=== PATIENT | male | born 1970 | race Caucasian/White ===

== ENCOUNTER 2017-11-16 12:29 | Emergency (ER) | payer OTHER ==
[2017-11-16 13:51] LABS: Barbiturates NEGATIVE (NEGATIVE); Benzodiazepines NEGATIVE (NEGATIVE); Cocaine NEGATIVE (NEGATIVE); METHAMPHETAM NEGATIVE (NEGATIVE); Opiates NEGATIVE (NEGATIVE); Phencyclidine NEGATIVE (NEGATIVE); THC Cannibis NEGATIVE (NEGATIVE)
[2017-11-16 14:03] LABS: Absolute Lymphocytes (CBC) 3.8 K/uL (0.7-4.9); Absolute Monocytes 0.8 K/uL (0.1-1.3); Absolute Neutrophil 5.6 K/uL (1.8-8.0); Basophils % 2.9 % (0-1.3); Eosinophils % 2.1 % (0-4.4); Hematocrit 44.5 % (39.6-49.0); Lymphocytes % 35.5 % (15.3-44.8); MCH 28.8 pg (27.0-35.0); MCV 87.6 fL (80-100); MPV 9.2 fL (7.6-11.3); Monocytes % 7.4 % (3.3-12.3); RBC Red Blood Cell Count 5.08 M/uL (4.33-5.43)
[2017-11-16 14:06] LABS: Protime INR 0.86
--- NOTE | 2017-11-16 14:09 | RAD REPORT ---
EXAM DESCRIPTION: RAD - Chest Single View - 11/16/2017 2:00 pm CLINICAL HISTORY: Chest pain. COMPARISON: 11/26/2016, 10/25/2016 FINDINGS: Portable technique limits examination quality. The lungs are grossly clear. The heart is normal in size. No displaced fractures. IMPRESSION: No acute intrathoracic process suspected.
[2017-11-16 14:10] LABS: Bicarbonate 24 mEq/L (21-31); Glucose Level 290 mg/dL (65-120); Potassium 4.3 mEq/L (3.6-5.0); Sodium Level 134 mEq/L (135-145)
[2017-11-16 14:16] LABS: ALT/SGPT 13 IU/L (10-60); AST/SGOT 16 IU/L (10-42); Albumin 3.9 g/dL (3.2-5.5); Alkaline Phosphatase 102 IU/L (42-121); BUN Blood Urea Nitrogen 14 mg/dL (6-20); Bilirubin Direct < 0.1 mg/dL (0-0.2); Bilirubin Total 0.2 mg/dL (0.3-1.2); Creatine Phosphokinase 60 IU/L (22-269); Protein, Total 7.3 g/dL (6.0-8.3)
[2017-11-16 14:19] LABS: CKMB Creatine Kinase MB 1.6 ng/ml (0.3-4.0)
[2017-11-16 14:31] LABS: Urine Blood NEGATIVE (NEG); Urine Glucose 2+ (NEG); Urine Protein NEGATIVE (NEG); Urine Specific Gravity 1.015 (1.005-1.030)
--- NOTE | 2017-11-16 14:38 | EKG ---
Test Date: 2017-11-16 Test Time: 12:55:13 Lace Mender: EDGARD MEASUREMENT RESULTS: Intervals: Rate: 102 VT: 146 QRSD: 82 QT: 326 QTc: 424 Exline: P: 67 VT: 146 QRS: 50 T: 43 INTERPRETIVE STATEMENTS: Sinus tachycardia Otherwise normal ECG Compared to ECG 11/26/2016 05:23:17 Sinus rhythm no longer present Myocardial infarct finding no longer present Electronically Signed On 11-16-17 14:37:02 CDT by Allan Herrera
[2017-11-16 14:40] LABS: Magnesium 1.4 mg/dL (1.8-2.5)
--- NOTE | 2017-11-16 15:16 | ER ---
Nurse's Notes [facility] Name: Cedrick Rodriguez Age: 47 yrs Sex: Male : 1970 Arrival Date: 11/16/2017 Time: 12:32 Bed 24 Private MD: None, None Diagnosis: Presentation: 11/16 12:33 Presenting complaint: Patient states: left arm and shoulder pain, fingertip numbness sv started about 30 minutes ago. left calf/thigh pain stated about an hour ago. Pt was watching tv with it started. Transition of care: patient was not received from another setting of care. Onset of symptoms was November 16, 2017. Care prior to arrival: None. 12:33 Method Of Arrival: Ambulatory sv 12:33 Acuity: VICENTE 3 sv 12:56 Risk Assessment: Do you want to hurt yourself or someone else? Patient reports no ed1 desire to harm self or others. 12:56 Initial Sepsis Screen: Does the patient meet any 2 criteria? No. Patient's initial ed1 sepsis screen is negative. Does the patient have a suspected source of infection? No. Patient's initial sepsis screen is negative. Triage Assessment: 12:33 General: Appears in no apparent distress. Behavior is calm, cooperative, appropriate sv for age. Pain: Complains of pain in left arm and left leg Pain currently is 8 out of 10 on a pain scale. Pain began 1 hour ago. EENT: No signs and/or symptoms were reported regarding the EENT system. Neuro: Level of Consciousness is awake, alert, obeys commands, Oriented to person, place, time, situation, City Maintenance Manager are equal bilaterally Moves all extremities. Full function Gait is steady, Speech is normal, Facial symmetry appears normal, Facial symmetry: tongue is midline, Reports numbness in left fingertips since 30 minutes ago that started after he started having left arm pain. Respiratory: Respiratory effort is even, unlabored, Respiratory pattern is regular, symmetrical. Derm: Skin is normal. Historical: - Allergies: 12:37 No Known Allergies; sv - PMHx: 12:37 Diabetes - NIDDM; Enlarge liver; Hypertension; Hypothyroidism; kidney issues; sv Myocardial infarction; - PSHx: 12:37 splenectomy; Cholecystectomy; Hernia repair; sv - Immunization history:: Adult Immunizations up to date. - Social history:: Smoking status: Patient uses tobacco products, smokes one pack cigarettes per day. - Ebola Screening: : No symptoms or risks identified at this time. Screenin:56 Abuse screen: Denies threats or abuse. Denies injuries from another. Nutritional ed1 screening: No deficits noted. Tuberculosis screening: No symptoms or risk factors identified. Fall Risk None identified. Assessment: 12:56 General: Appears in no apparent distress. Behavior is calm, cooperative. Pain: ed1 Complains of pain in left leg and left arm Pain does not radiate. Pain currently is 8 out of 10 on a pain scale. Pain began suddenly, 30 min ago. Is continuous, Also complains of reports tingling in left fingertips. Neuro: Level of Consciousness is awake, alert, obeys commands, Oriented to person, place, time, situation, City Maintenance Manager are equal bilaterally Moves all extremities. Full function Gait is steady, Speech is normal, Facial symmetry appears normal, Pupils are PERRLA, Tingling in left hand Denies weakness blurred vision dizziness, headache. Cardiovascular: Denies chest pain, Heart tones S1 S2 present Capillary refill < 3 seconds in bilateral fingers Clubbing of nail beds is absent JVD is absent Patient's skin is warm and dry. Respiratory: Airway is patent Trachea midline Respiratory effort is even, unlabored, Respiratory pattern is regular, symmetrical, Breath sounds are clear bilaterally. Denies cough, shortness of breath. GI: Abdomen is non-distended, Bowel sounds present X 4 quads. Abd is soft and non tender X 4 quads. Patient currently denies diarrhea, nausea, vomiting. : No signs and/or symptoms were reported regarding the genitourinary system. EENT: No signs and/or symptoms were reported regarding the EENT system. Derm: Skin is intact, is healthy with good turgor, Skin is dry, Skin is normal, Skin temperature is warm. Musculoskeletal: Circulation, motion, and sensation intact. Capillary refill < 3 seconds, in bilateral fingers. Range of motion: intact in all extremities, Swelling absent Reports pain in left leg and left arm Pain is 8 out of 10 on a pain scale. 13:15 General: The previous assessment is accurate, call light remains within reach. . ss 14:35 Reassessment: Patient appears in no apparent distress at this time. No changes from ed1 previously documented assessment. Patient and/or family updated on plan of care and expected duration. Pain level reassessed. Patient is alert, oriented x 3, equal unlabored respirations, skin warm/dry/pink. Patient states symptoms have not improved. 14:40 Reassessment: Received a call from lab. Mag level 1.4. Provider notified. kr2 Vital Signs: 12:37 BP 116 / 72; Pulse 103; Resp 18; Temp 98.0; Pulse Ox 96% ; Weight 81.65 kg; Height 5 sv ft. 9 in. (175.26 cm); Pain 8/10; 14:35 BP 113 / 72; Pulse 83; Resp 17; Pulse Ox 96% on R/A; Pain 8/10; ed1 12:37 Body Mass Index 26.58 (81.65 kg, 175.26 cm) sv ED Course: 12:32 Patient arrived in ED. sb2 12:33 None, None is Private Physician. sb2 12:35 Arm band placed on right wrist. Patient placed in an exam room, on a stretcher. sv 12:37 Triage completed. sv 12:43 Koby Levine, KRYSTEN is PHCP. pm1 12:43 Jg Pagan MD is Attending Physician. pm1 12:48 Catrachita Arboleda LVN is Primary Nurse. ed1 12:52 Glucose, Ancillary Testing Sent. ed1 12:56 Awaiting ED provider evaluation. ed1 12:56 Patient has correct armband on for positive identification. Placed in gown. Bed in low ed1 position. Call light in reach. Side rails up X 1. monitoring engineer on. Pulse ox on. NIBP on. 13:46 Inserted saline lock: 20 gauge in right forearm, using aseptic technique. ed1 13:56 X-ray completed. Portable x-ray completed in exam room. Patient tolerated procedure jb2 well. 14:00 XRAY Chest (1 view) In Process Unspecified. EDMS 15:14 IV discontinued, intact, bleeding controlled, No redness/swelling at site. Pressure ed1 dressing applied. 15:15 No provider procedures requiring assistance completed. ed1 Administered Medications: No medications were administered Point of Care Testing: Blood Glucose: 12:48 Blood Glucose: 300 mg/dL; ed1 Ranges: Outcome: 15:14 AMA AMA form signed ed1 15:14 Condition: stable 15:14 Discharge instructions given to patient, Instructed on Need to wait for follow up lab work and Mg replacement. Pt verbalizes understanding of risks of not staying. Demonstrated understanding of instructions. 15:16 Patient left the ED. ed1 Signatures: Dispatcher [employer] Eva Trinidad, RN Cesar Lewis jb2 Disha Serna RN RN ss Catrachita Arboleda, HAZARDOUS MATERIAL TECHNICIAN HAZARDOUS MATERIAL TECHNICIAN ed1 Koby Levine, ROLLER PRINT TENDER ROLLER PRINT TENDER pm1 Aurora Dixon RN RN kr2 Janet Pabon 2
[2017-11-16 15:28] VITALS: TEMP 98; O2SAT 96
[2017-11-16 15:30] VITALS: BP 113/72
--- NOTE | 2017-11-17 15:16 | EDPHYS ---
Physician Documentation [facility] Name: Cedrick Rodriguez Age: 47 yrs Sex: Male : 1970 Arrival Date: 11/16/2017 Time: 12:32 Bed 24 Private MD: None, None ED Physician Jg Pagan HPI: 11/16 14:00 This 47 yrs old Male presents to ER via Ambulatory with complaints of Left pm1 Leg Pain, Left Arm Pain. 14:00 The patient presents with pain. The complaints affect the left leg and left arm. pm1 Context: The problem was sustained at home, resulted from an unknown cause, the patient can fully bear weight, the patient is able to ambulate. Onset: The symptoms/episode began/occurred this morning. Modifying factors: The symptoms are alleviated by Rest. the symptoms are aggravated by nothing. Associated signs and symptoms: Pertinent positives: Chest pain. Treatment prior to arrival includes: no previous treatment. Severity of symptoms: in the emergency department the symptoms have improved. The patient has experienced a previous episode. The patient has not recently seen a physician. Historical: - Allergies: 12:37 No Known Allergies; sv - PMHx: 12:37 Diabetes - NIDDM; Enlarge liver; Hypertension; Hypothyroidism; kidney issues; sv Myocardial infarction; - PSHx: 12:37 splenectomy; Cholecystectomy; Hernia repair; sv - Immunization history:: Adult Immunizations up to date. - Social history:: Smoking status: Patient uses tobacco products, smokes one pack cigarettes per day. - Ebola Screening: : No symptoms or risks identified at this time. ROS: 14:00 Constitutional: Negative for fever, chills, and weight loss, Eyes: Negative for injury, pm1 pain, redness, and discharge, ENT: Negative for injury, pain, and discharge, Neck: Negative for injury, pain, and swelling. 14:00 Respiratory: Negative for shortness of breath, cough, wheezing, and pleuritic chest pain, Abdomen/GI: Negative for abdominal pain, nausea, vomiting, diarrhea, and constipation, Back: Negative for injury and pain, : Negative for injury, bleeding, discharge, and swelling, Skin: Negative for injury, rash, and discoloration, Neuro: Negative for headache, weakness, numbness, tingling, and seizure. 14:00 Cardiovascular: Positive for chest pain, Negative for edema, orthopnea, palpitations. 14:00 MS/extremity: Positive for pain, of the left arm and left leg. Exam: 14:00 Constitutional: This is a well developed, well nourished patient who is awake, alert, pm1 and in no acute distress. Head/Face: Normocephalic, atraumatic. Eyes: Pupils equal round and reactive to light, extra-ocular motions intact. Lids and lashes normal. Conjunctiva and sclera are non-icteric and not injected. Cornea within normal limits. Periorbital areas with no swelling, redness, or edema. ENT: Nares patent. No nasal discharge, no septal abnormalities noted. Tympanic membranes are normal and external auditory canals are clear. Oropharynx with no redness, swelling, or masses, exudates, or evidence of obstruction, uvula midline. Mucous membranes moist. Neck: Trachea midline, no thyromegaly or masses palpated, and no cervical lymphadenopathy. Supple, full range of motion without nuchal rigidity, or vertebral point tenderness. No Meningismus. Chest/axilla: Normal chest wall appearance and motion. Nontender with no deformity. No lesions are appreciated. Cardiovascular: Regular rate and rhythm with a normal S1 and S2. No gallops, murmurs, or rubs. Normal PMI, no JVD. No pulse deficits. Respiratory: Lungs have equal breath sounds bilaterally, clear to auscultation and percussion. No rales, rhonchi or wheezes noted. No increased work of breathing, no retractions or nasal flaring. Abdomen/GI: Soft, non-tender, with normal bowel sounds. No distension or tympany. No guarding or rebound. No evidence of tenderness throughout. Back: No spinal tenderness. No costovertebral tenderness. Full range of motion. Skin: Warm, dry with normal turgor. Normal color with no rashes, no lesions, and no evidence of cellulitis. MS/ Extremity: Pulses equal, no cyanosis. Neurovascular intact. Full, normal range of motion. Neuro: Awake and alert, GCS 15, oriented to person, place, time, and situation. Cranial nerves II-XII grossly intact. Motor strength 5/5 in all extremities. Sensory grossly intact. Cerebellar exam normal. Normal gait. Vital Signs: 12:37 BP 116 / 72; Pulse 103; Resp 18; Temp 98.0; Pulse Ox 96% ; Weight 81.65 kg; Height 5 sv ft. 9 in. (175.26 cm); Pain 8/10; 14:35 BP 113 / 72; Pulse 83; Resp 17; Pulse Ox 96% on R/A; Pain 8/10; ed1 12:37 Body Mass Index 26.58 (81.65 kg, 175.26 cm) sv MDM: 12:44 Patient medically screened. pm1 15:00 Data reviewed: vital signs. Data interpreted: Pulse oximetry:. Refusal of service: The pm1 patient/guardian displays adequate decision making capability and despite a detailed discussion of alternatives, benefits, risks, and consequences refuses: Admission to the hospital for further work-up and treatment. 15:00 ED course: Impression: left arm pain, left leg pain, chest pain. pm1 11/16 12:51 Order name: Glucose, Ancillary Testing; Complete Time: 13:25 EDMS 11/16 13:24 Order name: Basic Metabolic Panel; Complete Time: 19:27 pm1 11/16 13:24 Order name: BNP; Complete Time: 14:24 pm1 11/16 13:24 Order name: CBC with Diff; Complete Time: 14:24 pm1 11/16 13:24 Order name: Ckmb; Complete Time: 19:27 pm1 11/16 13:24 Order name: CPK; Complete Time: 19:27 pm1 11/16 13:24 Order name: LFT's; Complete Time: 19:27 pm1 11/16 13:24 Order name: Magnesium; Complete Time: 19:27 pm1 11/16 13:24 Order name: PT-INR; Complete Time: 19:27 pm1 11/16 13:24 Order name: Ptt, Activated; Complete Time: 19:27 pm1 11/16 13:24 Order name: Troponin (emerg Dept Use Only); Complete Time: 14:24 pm1 11/16 13:24 Order name: XRAY Chest (1 view); Complete Time: 14:11 pm1 11/16 13:24 Order name: UDS; Complete Time: 19:27 pm1 11/16 13:42 Order name: Urine Dipstick--Ancillary (enter results); Complete Time: 19:27 ag 11/16 12:43 Order name: EKG; Complete Time: 12:44 sv 11/16 12:43 Order name: EKG - Nurse/Tech; Complete Time: 13:05 sv 11/16 13:24 Order name: Cardiac monitoring; Complete Time: 13:40 pm1 11/16 13:24 Order name: IV Saline Lock; Complete Time: 13:40 pm1 11/16 13:24 Order name: Labs collected and sent; Complete Time: 13:41 pm1 11/16 13:24 Order name: O2 Per Protocol; Complete Time: 13:41 pm1 11/16 13:24 Order name: O2 Sat Monitoring; Complete Time: 13:41 pm1 11/16 13:24 Order name: Urine Dipstick-Ancillary (obtain specimen); Complete Time: 13:41 pm1 Administered Medications: No medications were administered Point of Care Testing: Blood Glucose: 12:48 Blood Glucose: 300 mg/dL; ed1 Ranges: Critical Glucose Levels:Adult <50 mg/dl or >400 mg/dl <40 mg/dl or >180 mg/dl Disposition: 11/16/17 15:16 Patient has left against medical advice. - Patients states they are going to Home. - Condition is Stable. Addendum: 11/17/2017 15:29 Co-signature as Attending Physician, Jg Pagan MD I agree with the assessment and c smith plan of care. Signatures: Dispatcher [employer] Eva Trinidad RN RN sv Anderson, Corey, MD MD cha Riggs, Erika, INTERACTIVE VIDEO TECHNICIAN INTERACTIVE VIDEO TECHNICIAN ed1 Koby Levine, BOATBUILDER SUPERVISOR BOATBUILDER SUPERVISOR pm1
== END 2017-11-16 15:16 | disposition left against medical advice (07) ==
LOC: ER 12:29
DX: R07.9 Chest pain, unspecified (principal); M79.602 Pain in left arm; I10 Essential (primary) hypertension; I25.2 Old myocardial infarction; F17.210 Nicotine dependence, cigarettes, uncomplicated
CPT/HCPCS: 36415; 71045; 80048; 80076; 80307; 81003; 82550; 82553; 82962; 83735; 83880; 84484; 85025; 85610; 85730; 93005; 99284

== ENCOUNTER 2018-01-23 01:03 | Emergency (ER) | payer OTHER ==
[2018-01-23] MEDS ORDERED: ASPIRIN 81 MG CHEWABLE TABLET ONE (01:42)
[2018-01-23 02:03] LABS: Protime INR 0.92
[2018-01-23 02:05] LABS: Absolute Lymphocytes (CBC) 4.4 K/uL (0.7-4.9); Absolute Neutrophil 7.8 K/uL (1.8-8.0); Basophils % 0.6 % (0-1.3); Eosinophils % 1.9 % (0-4.4); Lymphocytes % 32.3 % (15.3-44.8); MCV 87.1 fL (80-100); MPV 9.6 fL (7.6-11.3); Monocytes % 7.2 % (3.3-12.3); RBC Red Blood Cell Count 4.81 M/uL (4.33-5.43)
[2018-01-23 02:18] LABS: ALT/SGPT 26 U/L (12-78); AST/SGOT 11 U/L (15-37); Albumin 3.6 g/dL (3.4-5.0); Alkaline Phosphatase 125 U/L (45-117); BUN Blood Urea Nitrogen 13 mg/dL (7-18); Bicarbonate 27 mmol/L (21-32); Bilirubin Direct < 0.1 mg/dL (0-0.2); Bilirubin Total 0.2 mg/dL (0.2-1.0); CKMB Creatine Kinase MB 1.8 ng/mL (0.3-3.6); Creatine Phosphokinase 76 U/L (39-308); Glucose Level 272 mg/dL (74-106); Magnesium 1.7 mg/dL (1.8-2.4); NT PRO-BNP 6 pg/mL (<125); Potassium 4.3 mmol/L (3.5-5.1); Protein, Total 7.5 g/dL (6.4-8.2); Sodium Level 135 mmol/L (136-145)
--- NOTE | 2018-01-23 05:15 | ER ---
Nurse's Notes [facility] Name: Cedrick Rodriguez Age: 47 yrs Sex: Male : 1970 Arrival Date: 01/23/2018 Time: 01:05 Bed 8 Private MD: Ju Abarca Diagnosis: Chest pain. Indeterminate 0.9 cm density with in right main bronchus proximally. 3 cm soft tissue density in the anterior superior mediastinum Presentation: 01/23 01:16 Presenting complaint: Patient states: he started having chest pain 3 hours ago which is bb a dull, non-radiating pain intermittent also has pain in his jaws and is short of breath. Transition of care: patient was not received from another setting of care. Onset of symptoms was January 22, 2018. Risk Assessment: Do you want to hurt yourself or someone else? Patient reports no desire to harm self or others. Initial Sepsis Screen: Does the patient meet any 2 criteria? No. Patient's initial sepsis screen is negative. Does the patient have a suspected source of infection? No. Patient's initial sepsis screen is negative. Care prior to arrival: None. 01:16 Method Of Arrival: Ambulatory bb 01:16 Acuity: VICENTE 3 bb Historical: - Allergies: : No Known Allergies; bb - Home Meds: 01:19 levothyroxine 100 mcg tab 1 tab once daily [Active]; metformin 1,000 mg Oral tab 2 bb times per day [Active]; aspirin 325 mg Oral tab 1 tab once daily [Active]; Glipizide Oral [Active]; Levemir subcutaneous subcutaneous [Active]; Lisinopril Oral [Active]; - PMHx: 01:19 Diabetes - NIDDM; Enlarge liver; Hypertension; Hypothyroidism; kidney issues; bb Myocardial infarction; - PSHx: 01:19 spleenectomy; Cholecystectomy; Hernia repair; bb - Immunization history:: Adult Immunizations up to date. - Social history:: Smoking status: Patient uses tobacco products, smokes one pack cigarettes per day. Patient/guardian denies using alcohol, street drugs. - Ebola Screening: : No symptoms or risks identified at this time. Screenin:22 Abuse screen: Denies threats or abuse. Nutritional screening: No deficits noted. bb Tuberculosis screening: No symptoms or risk factors identified. Fall Risk None identified. Assessment: 01:20 General: Appears in no apparent distress. comfortable, obese, Behavior is cooperative, bp appropriate for age, anxious. Pain: Complains of pain in mid-sternal area Pain radiates to neck Pain currently is 6 out of 10 on a pain scale. Pain began suddenly. Neuro: Level of Consciousness is awake, alert, obeys commands, Oriented to person, place, time, situation, Appropriate for age. Cardiovascular: Rhythm is sinus rhythm. Respiratory: Airway is patent Respiratory effort is even, unlabored, Respiratory pattern is regular, symmetrical. GI: No signs and/or symptoms were reported involving the gastrointestinal system. : No signs and/or symptoms were reported regarding the genitourinary system. EENT: No deficits noted. Derm: No deficits noted. Musculoskeletal: Circulation, motion, and sensation intact. Range of motion: intact in all extremities. 01:48 Reassessment: Patient and/or family updated on plan of care and expected duration. Pain ea level reassessed. Patient is alert, oriented x 3, equal unlabored respirations, skin warm/dry/pink. 04:06 Reassessment: Patient and/or family updated on plan of care and expected duration. Pain ea level reassessed. Patient is alert, oriented x 3, equal unlabored respirations, skin warm/dry/pink. Returned from CT. 05:20 Reassessment: Patient and/or family updated on plan of care and expected duration. Pain ea level reassessed. Patient is alert, oriented x 3, equal unlabored respirations, skin warm/dry/pink. Pt reports he wants to go home. Physician notified. Pt verbalized the understanding of possible adverse effects of leaving AMA. Vital Signs: 01:19 BP 140 / 88; Pulse 95; Resp 16 S; Temp 98(O); Pulse Ox 100% on R/A; Weight 84.37 kg bb (R); Height 5 ft. 9 in. (175.26 cm) (R); Pain 6/10; 02:30 BP 148 / 80; Pulse 98; Resp 16; Pulse Ox 98% ; ea 03:59 BP 110 / 76; Pulse 92; Resp 18; Pulse Ox 98% ; ea 04:45 BP 130 / 72; Pulse 88; Resp 18; Pulse Ox 100% ; ea 01:19 Body Mass Index 27.47 (84.37 kg, 175.26 cm) ED Course: 01:05 Patient arrived in ED. al2 01:06 Ju Abarca MD is Private Physician. al2 01:08 Dewey Rao MD is Attending Physician. pkl 01:18 Triage completed. bb 01:19 Arm band placed on Patient placed in an exam room, on a stretcher, on manager cardiac, bb on pulse oximetry. EKG completed in triage. Results shown to MD. Family accompanied patient. 01:22 Patient has correct armband on for positive identification. Placed in gown. Bed in low bb position. Call light in reach. Side rails up X 1. Adult w/ patient. straightedge machine operator helper on. Pulse ox on. NIBP on. 01:22 Patient maintains SpO2 saturation greater than 95% on room air. bb 01:22 Inserted saline lock: 20 gauge in right forearm, using aseptic technique. Blood bp collected. 01:35 X-ray completed. Portable x-ray completed in exam room. Patient tolerated procedure kp1 well. 01:35 XRAY Chest (1 view) In Process Unspecified. EDMS 01:40 Aurelio Mchugh, RN is Primary Nurse. bp 03:[address] via stretcher. kw1 03:54 CT Chest For PE Angio In Process Unspecified. EDMS 03:55 CT completed. Patient tolerated procedure well. Patient moved back from CT. kw1 05:11 Lalo Baca MD is Referral Physician. pkl 05:25 IV discontinued, intact, bleeding controlled, No redness/swelling at site. Pressure ea dressing applied. 05:45 No provider procedures requiring assistance completed. ea Administered Medications: 01:39 Drug: Aspirin 162 mg Route: PO; ea 04:01 Follow up: Response: No adverse reaction ea Outcome: 05:35 AMA AMA form signed ea 05:46 Patient left the ED. ea Signatures: Dispatcher [employer] EDMS Dewey Rao MD MD pkEli Esparza RN RN Gabbie Quiñones kp1 Renee Clayton RN RN ea Peltier, Brian RN Yanique Morrison kw1 Vita Neri al2
--- NOTE | 2018-01-23 05:15 | EDPHYS ---
Physician Documentation [facility] Name: Cedrick Rodriguez Age: 47 yrs Sex: Male : 1970 Arrival Date: 01/23/2018 Time: 01:05 Bed 8 Private MD: Ju Abarca ED Physician Dewey Rao HPI: 01/23 01:24 This 47 yrs old Male presents to ER via Ambulatory with complaints of Chest pkl Pain, Shortness Of Breath. 01:24 The patient or guardian reports chest pain that is located primarily in the substernal pkl area. Onset: just prior to arrival, 3 hour(s) ago, and improved in ER. The pain does not radiate. The chest pain is described as dull. The patient has experienced similar episodes in the past, several times. Historical: - Allergies: : No Known Allergies; bb - Home Meds: :19 levothyroxine 100 mcg tab 1 tab once daily [Active]; metformin 1,000 mg Oral tab 2 bb times per day [Active]; aspirin 325 mg Oral tab 1 tab once daily [Active]; Glipizide Oral [Active]; Levemir subcutaneous subcutaneous [Active]; Lisinopril Oral [Active]; - PMHx: 01:19 Diabetes - NIDDM; Enlarge liver; Hypertension; Hypothyroidism; kidney issues; bb Myocardial infarction; - PSHx: 01:19 spleenectomy; Cholecystectomy; Hernia repair; bb - Immunization history:: Adult Immunizations up to date. - Social history:: Smoking status: Patient uses tobacco products, smokes one pack cigarettes per day. Patient/guardian denies using alcohol, street drugs. - Ebola Screening: : No symptoms or risks identified at this time. ROS: 01:24 Eyes: Negative for injury, pain, redness, and discharge, ENT: Negative for injury, pkl pain, and discharge, Neck: Negative for injury, pain, and swelling. 01:24 Cardiovascular: Positive for chest pain. 01:24 Respiratory: Negative for shortness of breath. 01:24 Abdomen/GI: Negative for abdominal pain, nausea, vomiting, and diarrhea. 01:24 Back: Negative for acute changes. 01:24 : Negative for urinary symptoms. 01:24 MS/extremity: Negative for acute changes. 01:24 Skin: Negative for rash. 01:24 Neuro: Negative for altered mental status. Exam: 01:24 Head/Face: Normocephalic, atraumatic. Eyes: Pupils equal round and reactive to light, pkl extra-ocular motions intact. Lids and lashes normal. Conjunctiva and sclera are non-icteric and not injected. Cornea within normal limits. Periorbital areas with no swelling, redness, or edema. ENT: Nares patent. No nasal discharge, no septal abnormalities noted. Tympanic membranes are normal and external auditory canals are clear. Oropharynx with no redness, swelling, or masses, exudates, or evidence of obstruction, uvula midline. Mucous membranes moist. Neck: Trachea midline, no thyromegaly or masses palpated, and no cervical lymphadenopathy. Supple, full range of motion without nuchal rigidity, or vertebral point tenderness. No Meningismus. Chest/axilla: Normal chest wall appearance and motion. Nontender with no deformity. No lesions are appreciated. Cardiovascular: Regular rate and rhythm with a normal S1 and S2. No gallops, murmurs, or rubs. Normal PMI, no JVD. No pulse deficits. Respiratory: Lungs have equal breath sounds bilaterally, clear to auscultation and percussion. No rales, rhonchi or wheezes noted. No increased work of breathing, no retractions or nasal flaring. Abdomen/GI: Soft, non-tender, with normal bowel sounds. No distension or tympany. No guarding or rebound. No evidence of tenderness throughout. Back: No spinal tenderness. No costovertebral tenderness. Full range of motion. Skin: Warm, dry with normal turgor. Normal color with no rashes, no lesions, and no evidence of cellulitis. MS/ Extremity: Pulses equal, no cyanosis. Neurovascular intact. Full, normal range of motion. Neuro: Awake and alert, GCS 15, oriented to person, place, time, and situation. Cranial nerves II-XII grossly intact. Motor strength 5/5 in all extremities. Sensory grossly intact. Cerebellar exam normal. Normal gait. Vital Signs: 01:19 BP 140 / 88; Pulse 95; Resp 16 S; Temp 98(O); Pulse Ox 100% on R/A; Weight 84.37 kg bb (R); Height 5 ft. 9 in. (175.26 cm) (R); Pain 6/10; 02:30 BP 148 / 80; Pulse 98; Resp 16; Pulse Ox 98% ; ea 03:59 BP 110 / 76; Pulse 92; Resp 18; Pulse Ox 98% ; ea 04:45 BP 130 / 72; Pulse 88; Resp 18; Pulse Ox 100% ; ea 01:19 Body Mass Index 27.47 (84.37 kg, 175.26 cm) bb MDM: 01:08 Patient medically screened. pkl 05:06 Data reviewed: vital signs, nurses notes. pkl 05:06 ED course: Discussed lab. and CT Scan results with patient. Advised admission for pkl further evaluations. Patient does not want to be admitted. Will follow up with specialist as out patient. Signed AMA. 01/23 01:24 Order name: Basic Metabolic Panel; Complete Time: 02:21 pkl 01/23 01:24 Order name: CBC with Diff; Complete Time: 02:07 pkl 01/23 01:24 Order name: Ckmb; Complete Time: 02:21 pkl 01/23 01:24 Order name: CPK; Complete Time: 02:21 pkl 01/23 01:24 Order name: LFT's; Complete Time: 02:21 pkl 01/23 01:24 Order name: Magnesium; Complete Time: 02:21 pkl 01/23 01:24 Order name: NT PRO-BNP; Complete Time: 02:21 pkl 01/23 01:24 Order name: PT-INR; Complete Time: 02:07 pkl 01/23 01:24 Order name: Ptt, Activated; Complete Time: 02:07 pkl 01/23 01:24 Order name: Troponin (emerg Dept Use Only); Complete Time: 02:21 pkl 01/23 01:24 Order name: XRAY Chest (1 view) pkl 01/23 01:24 Order name: D-Dimer; Complete Time: 02:07 pkl 01/23 02:22 Order name: CT Chest For PE Angio pkl 01/23 03:40 Order name: Troponin (emerg Dept Use Only); Complete Time: 05:16 pkl 01/23 01:24 Order name: EKG; Complete Time: 01:25 pkl 01/23 01:24 Order name: Cardiac monitoring; Complete Time: 01:39 pkl 01/23 01:24 Order name: EKG - Nurse/Tech; Complete Time: 01:40 pkl 01/23 01:24 Order name: IV Saline Lock; Complete Time: :40 pkl 01/23 01:24 Order name: Labs collected and sent; Complete Time: : pkl 01/23 01:24 Order name: O2 Per Protocol; Complete Time: 40 pkl 01/23 01:24 Order name: O2 Sat Monitoring; Complete Time: :40 pkl 01/23 03:40 Order name: EKG; Complete Time: :40 pkl Administered Medications: 01:39 Drug: Aspirin 162 mg Route: PO; ea 04:01 Follow up: Response: No adverse reaction ea Disposition: 01/23/18 05:15 Patient has left against medical advice. Impression: Chest pain. Indeterminate 0.9 cm density with in right main bronchus proximally. 3 cm soft tissue density in the anterior superior mediastinum. - Patients states they are going to Home. - Condition is Stable. Follow up: Lalo Baca MD; When: 1 - 2 days; Reason: Re-evaluation by your physician. - Problem is new. - Symptoms are unchanged. Signatures: Dispatcher [employer] EDMS Dewey Rao MD MD pkl Ballard, Brenda, RN RN bb Antunez, Elena, RN RN ea Corrections: (The following items were deleted from the chart) 05:46 05:15 01/23/2018 05:15 Patients has left against medical advice. Impression: Chest ea pain. Indeterminate 0.9 cm density with in right main bronchus proximally. 3 cm soft tissue density in the anterior superior mediastinum. Patient states they are going to Home. Condition is Stable. Follow up: Lalo Baca; When: 1 - 2 days; Reason: Re-evaluation by your physician. Problem is new. Symptoms are unchanged. pkl
[2018-01-23 05:52] VITALS: TEMP 98
[2018-01-23 05:55] VITALS: BP 130/72; O2SAT 100
--- NOTE | 2018-01-23 07:45 | EKG ---
Test Date: 2018-01-23 Test Time: 04:04:13 Crawler Dragline Operator: RENETTA MEASUREMENT RESULTS: Intervals: Rate: 89 MD: 160 QRSD: 92 QT: 352 QTc: 428 [place]: P: 59 MD: 160 QRS: -6 T: 46 INTERPRETIVE STATEMENTS: Normal sinus rhythm Normal ECG Compared to ECG 01/23/2018 01:12:43 No significant changes Electronically Signed On 01-23-18 07:44:52 CDT by Allan Herrera
--- NOTE | 2018-01-23 07:45 | EKG ---
Test Date: 2018-01-23 Test Time: 01:12:43 Consumer Loan Underwriter: RENETTA MEASUREMENT RESULTS: Intervals: Rate: 88 TX: 154 QRSD: 90 QT: 346 QTc: 418 [place]: P: 55 TX: 154 QRS: -11 T: 56 INTERPRETIVE STATEMENTS: Normal sinus rhythm Normal ECG Compared to ECG 11/16/2017 12:55:13 Sinus tachycardia no longer present Electronically Signed On 01-23-18 07:44:54 CDT by Allan Herrera
--- NOTE | 2018-01-23 07:58 | RAD REPORT ---
EXAM DESCRIPTION: RAD - Chest Single View - 01/23/2018 1:36 am CLINICAL HISTORY: Chest pain COMPARISON: November 16 TECHNIQUE: AP portable chest image was obtained 0122 hours . FINDINGS: No focal lung parenchymal process. No failure or volume overload. Lung markings match prio r study. Heart and vasculature are normal. No measurable pleural effusion and no pneumothorax. No ebenezer ss bony abnormality seen. No acute aortic findings suspected. IMPRESSION: No acute cardiopulmonary process. No significant interval change.
--- NOTE | 2018-01-23 08:44 | RAD REPORT ---
EXAM DESCRIPTION: CT - Chest For Pe Angio - 01/23/2018 7:09 am CLINICAL HISTORY: Chest pain, shortness of breath. A preliminary written report was provided at the time of the study, and the report was reviewed prio r to final dictation. COMPARISON: None. TECHNIQUE: Dynamically enhanced 3 mm thick images of the chest were obtained during administration o f approximately 150mL Isovue 370 IV contrast. Coronal and oblique MIP reconstruction images were gene rated and reviewed. Exam utilizes a protocol to evaluate the pulmonary arterial tree. All CT scans are performed using dose optimization technique as appropriate and may include automated exposure control or mA/KV adjustment according to patient size. FINDINGS: No pulmonary emboli are identified. The aorta as imaged shows no acute or suspicious finding. No pericardial thickening or effusion. No infiltrate or mass in the lung parenchyma. No pleural effusion or pleural thickening. No abnormal mediastinal or hilar lymphadenopathy. Esophageal severino show some circumferential thickeni ng along the majority of the length. Esophageal assessment from CT imaging is limited. Correlation is needed with any esophagitis findings. In the anterior superior mediastinum the patient has a 3.5 x 3.0 centimeter noncalcified soft tissue mass. No fat component. The mass appears to be discrete from normal sized thyroid gland. Substernal t hyroid tissue is unlikely. This is potentially prominent but remnant thymus. Thymoma, teratoma or lym phoma are all possible. No chest wall mass. Patient has a few prominent lymph nodes in the upper left axilla adjacent to the axillary vasculature. Largest lymph node is 17 x 12 mm. Patient has no comparison imaging did allows evaluation of the mediastinal and axillary findings. IMPRESSION: No pulmonary emboli identified. Possible esophageal wall thickening throughout the thoracic esophagus. Correlation is needed with any esophagitis findings. No one focal area of masslike thickening. 3.5 centimeter anterior mediastinal soft tissue mass.This is potentially unusual persistence of thymi c tissue. A thymoma, teratoma or lymphoma would be possible. No prior imaging at this facility would allow for adequate comparison.
== END 2018-01-23 05:46 | disposition left against medical advice (07) ==
LOC: ER 01:03
DX: R07.9 Chest pain, unspecified (principal); E11.9 Type 2 diabetes mellitus without complications; Z79.84 Long term (current) use of oral hypoglycemic drugs; I10 Essential (primary) hypertension; E03.9 Hypothyroidism, unspecified; I25.2 Old myocardial infarction; F17.210 Nicotine dependence, cigarettes, uncomplicated; R16.0 Hepatomegaly, not elsewhere classified; Z53.21 Procedure and treatment not carried out due to patient leaving prior to being seen by health care provider
CPT/HCPCS: 36415; 71045; 71275; 80048; 80076; 82550; 82553; 83735; 83880; 84484 ×2; 85025; 85379; 85610; 85730; 93005 ×2; Q9967; 99285

== ENCOUNTER 2018-03-07 19:07 | Emergency (ER) | payer OTHER ==
[2018-03-07] MEDS ORDERED: HYDROCODONE/APAP 10/325 TAB ONE (21:45)
--- NOTE | 2018-03-07 22:31 | RAD REPORT ---
EXAM DESCRIPTION: RAD - Chest Single View - 03/07/2018 9:52 pm CLINICAL HISTORY: Chest pain, left-sided rib pain COMPARISON: January 23 TECHNIQUE: AP portable chest image was obtained 2135 hours . FINDINGS: No focal mass, consolidation or failure finding. Heart and vasculature are normal. No noel urable pleural effusion and no pneumothorax. No gross bony abnormality seen. No acute aortic findings suspected. IMPRESSION: No acute cardiopulmonary process.
--- NOTE | 2018-03-07 22:33 | RAD REPORT ---
EXAM DESCRIPTION: RAD - Ribs Left - 03/07/2018 9:52 pm CLINICAL HISTORY: Chest pain, left-sided rib pain COMPARISON: None. FINDINGS: No displaced rib fracture is seen and no non-displaced rib fractures suspected. Minimal fr actures at a costochondral junction can be occult on plain film. No aggressive rib lesion. No underly ing pneumothorax, effusion, infiltrate or pulmonary contusion. IMPRESSION: No displaced rib fracture. No acute rib injury confirmed.
--- NOTE | 2018-03-07 22:46 | EDPHYS ---
Physician Documentation [facility] Name: Cedrick Rodriguez Age: 47 yrs Sex: Male : 1970 Arrival Date: 03/07/2018 Time: 19:09 Bed 23 Private MD: Ju Abarca ED Physician Dewey Rao HPI: 03/07 22:00 This 47 yrs old Male presents to ER via Ambulatory with complaints of Left pm1 rib pain. 22:00 The patient presents with pain Pain. The symptoms are located in the left subscapular pm1 area and left mid back. Onset: The symptoms/episode began/occurred 3 day(s) ago. The pain does not radiate. Associated signs and symptoms: Pertinent negatives: chest pain, fever, shortness of breath, chest pain. The problem was sustained during a fall, while walking, slipped on water and landed on left side of his back. Modifying factors: the patient symptoms are aggravated by deep breathing. Severity of symptoms: in the emergency department the symptoms are unchanged. The patient has not recently seen a physician. Historical: - Home Meds: 19:16 aspirin 325 mg Oral tab 1 tab once daily [Active]; Glipizide Oral [Active]; Levemir hb subcutaneous [Active]; levothyroxine 100 mcg tab 1 tab once daily [Active]; lisinopril Oral [Active]; metformin 1,000 mg Oral tab 2 times per day [Active]; - PMHx: 19:16 Enlarge liver; Hypertension; Hypothyroidism; kidney issues; Myocardial infarction; hb Diabetes - NIDDM; - PSHx: 19:16 Cholecystectomy; spleenectomy; Hernia repair; hb - Immunization history:: Adult Immunizations up to date. - Social history:: Smoking status: Patient uses tobacco products, smokes one pack cigarettes per day. - Ebola Screening: : No symptoms or risks identified at this time. ROS: 22:00 Constitutional: Negative for fever, chills, and weight loss, Eyes: Negative for injury, pm1 pain, redness, and discharge, ENT: Negative for injury, pain, and discharge, Neck: Negative for injury, pain, and swelling, Cardiovascular: Negative for chest pain, palpitations, and edema, Respiratory: Negative for shortness of breath, cough, wheezing, and pleuritic chest pain, Abdomen/GI: Negative for abdominal pain, nausea, vomiting, diarrhea, and constipation. 22:00 MS/Extremity: Negative for injury and deformity, Skin: Negative for injury, rash, and discoloration, Neuro: Negative for headache, weakness, numbness, tingling, and seizure. 22:00 Back: Positive for of the left subscapular area and left mid back, pain. Exam: 22:00 Constitutional: This is a well developed, well nourished patient who is awake, alert, pm1 and in no acute distress. Head/Face: Normocephalic, atraumatic. Eyes: Pupils equal round and reactive to light, extra-ocular motions intact. Lids and lashes normal. Conjunctiva and sclera are non-icteric and not injected. Cornea within normal limits. Periorbital areas with no swelling, redness, or edema. ENT: Nares patent. No nasal discharge, no septal abnormalities noted. Tympanic membranes are normal and external auditory canals are clear. Oropharynx with no redness, swelling, or masses, exudates, or evidence of obstruction, uvula midline. Mucous membranes moist. Neck: Trachea midline, no thyromegaly or masses palpated, and no cervical lymphadenopathy. Supple, full range of motion without nuchal rigidity, or vertebral point tenderness. No Meningismus. Chest/axilla: Normal chest wall appearance and motion. Nontender with no deformity. No lesions are appreciated. Cardiovascular: Regular rate and rhythm with a normal S1 and S2. No gallops, murmurs, or rubs. Normal PMI, no JVD. No pulse deficits. Respiratory: Lungs have equal breath sounds bilaterally, clear to auscultation and percussion. No rales, rhonchi or wheezes noted. No increased work of breathing, no retractions or nasal flaring. Abdomen/GI: Soft, non-tender, with normal bowel sounds. No distension or tympany. No guarding or rebound. No evidence of tenderness throughout. 22:00 Skin: Warm, dry with normal turgor. Normal color with no rashes, no lesions, and no evidence of cellulitis. MS/ Extremity: Pulses equal, no cyanosis. Neurovascular intact. Full, normal range of motion. 22:00 Back: pain, of the left subscapular area and left mid back, focal point tenderness over left posterior ribs, normal spinal alignment noted, vertebral tenderness, is not appreciated. 22:00 Neuro: Orientation: is normal, Motor: is normal, moves all fours. Vital Signs: 19:14 BP 137 / 90; Pulse 115; Resp 18; Temp 97.4; Pulse Ox 98% on R/A; Pain 8/10; hb 20:56 BP 137 / 73; Pulse 83; Pulse Ox 96% on R/A; rv MDM: 21:05 Patient medically screened. pm1 22:44 Data reviewed: vital signs. Data interpreted: Pulse oximetry: on room air is 96 %. pm1 Interpretation: normal. Counseling: I had a detailed discussion with the patient and/or guardian regarding: the historical points, exam findings, and any diagnostic results supporting the discharge/admit diagnosis, radiology results, the need for outpatient follow up, to return to the emergency department if symptoms worsen or persist or if there are any questions or concerns that arise at home. 03/07 21:34 Order name: Ribs Left XRAY; Complete Time: 22:44 pm1 03/07 21:34 Order name: Chest Single View XRAY; Complete Time: 22:44 pm1 Administered Medications: 21:40 Drug: [place] 10 mg-325 mg 1 tabs Route: PO; rv 22:41 Follow up: Response: Pain is decreased rv Disposition: 23:12 Co-signature as Attending Physician, Dewey Rao MD. oren Disposition: 03/07/18 22:45 Discharged to Home. Impression: Contusion of left back wall of thorax, Other slipping, tripping and stumbling and falls. - Condition is Stable. - Discharge Instructions: Rib Contusion, Fall Prevention in the Home. - Prescriptions for Tylenol- Codeine #3 300-30 mg Oral Tablet - take 2 tablets by ORAL route every 6 hours As needed; 20 tablet. - Medication Reconciliation Form, Thank You Letter, Prescription Opioid Use form. - Follow up: Emergency Department; When: As needed; Reason: Worsening of condition. Follow up: Ju Abarca MD; When: 2 - 3 days; Reason: Recheck today's complaints, Continuance of care, Re-evaluation by your physician. - Problem is new. - Symptoms have improved. Signatures: Dispatcher [employer] EDMS Dewey Rao MD MD pkKoby Sykes, DRY MIXER DRY MIXER pm1 Sultana Sue, RN RN hb Freddy Dove RN RN rv Corrections: (The following items were deleted from the chart) 22:52 22:45 03/07/2018 22:45 Discharged to Home. Impression: Contusion of left back wall of rv thorax; Other slipping, tripping and stumbling and falls. Condition is Stable. Forms are Medication Reconciliation Form, Thank You Letter, Antibiotic Education, Prescription Opioid Use. Follow up: Emergency Department; When: As needed; Reason: Worsening of condition. Follow up: Ju Abarca; When: 2 - 3 days; Reason: Recheck today's complaints, Continuance of care, Re-evaluation by your physician. Problem is new. Symptoms have improved. pm1
--- NOTE | 2018-03-07 22:46 | ER ---
Nurse's Notes [facility] Name: Cedrick Rodriguez Age: 47 yrs Sex: Male : 1970 Arrival Date: 03/07/2018 Time: 19:09 Bed 23 Private MD: Ju Abarca Diagnosis: Contusion of left back wall of thorax;Other slipping, tripping and stumbling and falls Presentation: 03/07 19:12 Presenting complaint: Patient states: Left sided ribcage, left upper back, and left hb lateral hip pain after fall from standing 2 days ago. Transition of care: patient was not received from another setting of care. Onset of symptoms was March 05, 2018. Risk Assessment: Do you want to hurt yourself or someone else? Patient reports no desire to harm self or others. Care prior to arrival: None. 19:12 Method Of Arrival: Ambulatory hb 19:12 Acuity: VICENTE 3 hb 20:58 Initial Sepsis Screen: Does the patient meet any 2 criteria? No. Patient's initial rv sepsis screen is negative. Does the patient have a suspected source of infection? No. Patient's initial sepsis screen is negative. Historical: - Home Meds: 19:16 aspirin 325 mg Oral tab 1 tab once daily [Active]; Glipizide Oral [Active]; Levemir hb subcutaneous [Active]; levothyroxine 100 mcg tab 1 tab once daily [Active]; lisinopril Oral [Active]; metformin 1,000 mg Oral tab 2 times per day [Active]; - PMHx: 19:16 Enlarge liver; Hypertension; Hypothyroidism; kidney issues; Myocardial infarction; hb Diabetes - NIDDM; - PSHx: 19:16 Cholecystectomy; spleenectomy; Hernia repair; hb - Immunization history:: Adult Immunizations up to date. - Social history:: Smoking status: Patient uses tobacco products, smokes one pack cigarettes per day. - Ebola Screening: : No symptoms or risks identified at this time. Screenin:58 Abuse screen: Denies threats or abuse. Denies injuries from another. Nutritional rv screening: No deficits noted. Tuberculosis screening: No symptoms or risk factors identified. Fall Risk None identified. Assessment: 20:57 General: Appears in no apparent distress. comfortable, Behavior is calm, cooperative. rv Pain: Complains of pain in chest. Neuro: Level of Consciousness is awake, alert, obeys commands, Oriented to person, place, time, situation. Cardiovascular: Capillary refill < 3 seconds. Respiratory: Airway is patent. GI: No signs and/or symptoms were reported involving the gastrointestinal system. : No signs and/or symptoms were reported regarding the genitourinary system. EENT: No signs and/or symptoms were reported regarding the EENT system. Derm: Skin is intact. Vital Signs: 19:14 BP 137 / 90; Pulse 115; Resp 18; Temp 97.4; Pulse Ox 98% on R/A; Pain 8/10; hb 20:56 BP 137 / 73; Pulse 83; Pulse Ox 96% on R/A; rv ED Course: 19:09 Patient arrived in ED. sb2 19:09 Ju Abarca MD is Private Physician. sb2 19:14 Triage completed. hb 19:16 Arm band placed on right wrist. hb 20:31 Koby Levine NP is PHCP. pm1 20:31 Dewey Rao MD is Attending Physician. pm1 20:58 Patient has correct armband on for positive identification. Placed in gown. Bed in low rv position. Call light in reach. Side rails up X 1. Adult w/ patient. Pulse ox on. NIBP on. 21:50 Ribs Left XRAY In Process Unspecified. EDMS 21:50 Chest Single View XRAY In Process Unspecified. EDMS 22:45 Ju Abarca MD is Referral Physician. pm1 22:51 No provider procedures requiring assistance completed. Patient did not have IV access rv during this emergency room visit. Administered Medications: 21:40 Drug: [place] 10 mg-325 mg 1 tabs Route: PO; rv 22:41 Follow up: Response: Pain is decreased rv Outcome: 22:45 Discharge ordered by MD. pm1 22:51 Discharged to home ambulatory. rv 22:51 Condition: good 22:51 Discharge instructions given to patient, Instructed on discharge instructions, follow up and referral plans. medication usage, Demonstrated understanding of instructions, follow-up care, medications. 22:52 Patient left the ED. rv Signatures: Dispatcher [employer] EDMS Koby Levine NP RETOUCHER pm1 Sultana Sue RN RN Janet Pabon sb2 Freddy Dove RN RN rv Corrections: (The following items were deleted from the chart) 19:15 19:12 Acuity: VICENTE 4 hb hb
[2018-03-08 01:03] VITALS: TEMP 97.4
[2018-03-08 01:13] VITALS: BP 137/73; O2SAT 96
== END 2018-03-07 22:52 | disposition home or self-care (01) ==
LOC: ER 19:07
DX: S20.222A Contusion of left back wall of thorax, initial encounter (principal); W01.0XXA Fall on same level from slipping, tripping and stumbling without subsequent striking against object, initial encounter; Y93.01 Activity, walking, marching and hiking; Y92.9 Unspecified place or not applicable; Z79.82 Long term (current) use of aspirin; Z79.4 Long term (current) use of insulin; I10 Essential (primary) hypertension; E11.9 Type 2 diabetes mellitus without complications; E03.9 Hypothyroidism, unspecified; I25.2 Old myocardial infarction; F17.210 Nicotine dependence, cigarettes, uncomplicated
CPT/HCPCS: 71045; 99283

== ENCOUNTER 2019-11-23 09:04 | Emergency (ER) | payer OTHER ==
[2019-11-23 11:07] LABS: Absolute Lymphocytes (CBC) 2.9 K/uL (0.7-4.9); Basophils % 1.2 % (0-1.3); Lymphocytes % 19.1 % (15.3-44.8); MPV 8.9 fL (7.6-11.3); RBC Red Blood Cell Count 5.42 M/uL (4.33-5.43)
[2019-11-23 11:19] LABS: BUN Blood Urea Nitrogen 10 mg/dL (7-18); Bicarbonate 24 mmol/L (21-32); Glucose Level 264 mg/dL (74-106); Potassium 4.5 mmol/L (3.5-5.1); Sodium Level 138 mmol/L (136-145)
[2019-11-23] MEDS ORDERED: MORPHINE 2 MG/ML SYR ONE ×2 (11:22→12:29)
--- NOTE | 2019-11-23 11:26 | RAD REPORT ---
EXAM DESCRIPTION: CT - CTFBWCON CLINICAL HISTORY: right upper tooth pain, facial swelling Pain and swelling. COMPARISON: Head Brain Wo Cont dated 07/05/2016 TECHNIQUE: Axial 2 mm thick images of the face were obtained with sagittal and coronal reconstructio n images. All CT scans are performed using dose optimization technique as appropriate and may include automated exposure control or mA/KV adjustment according to patient size. FINDINGS: Numerous large dental caries are present.Along the buccal cortex of the right maxilla an a bscess is present measuring 16 x 12 mm emanating from the periapical region 5 mm abscess involving th e right maxillary premolar. No globe abnormality seen.Focal soft tissue prominence is seen involving the right ethmoid air cell w hich protrudes along the right lamina papyracea and measures approximately 20 x 17 mm. It may represe nt mucosae and exerts some mass effect on the medial rectus muscle. Mild mucoperiosteal thickening is seen involving the inferior right maxillary antrum. IMPRESSION: Poor dentition identified with multiple large dental caries. Small 5 mm periapical abscess involving the right axillary premolar extending into the 16 x 12 mm sub periosteal abscess along the right maxilla buccal cortex.
[2019-11-23] MEDS ORDERED: LIDOCAINE 1% W/EPI 1:100,000 MDV 20 ML VIAL ONE (12:33)
[2019-11-23] MEDS ORDERED: BUPIVACAINE 0.5% PF 10 ML VIAL ONE (12:33)
[2019-11-23] MEDS ORDERED: CLINDAMYCIN 900MG/D5W 900 MG/50 ML IVPB IV ONE (12:34)
[2019-11-23] MEDS ORDERED: FENTANYL CITR 100 MCG/2 ML ONE (14:23)
[2019-11-23] MEDS ORDERED: KETOROLAC 30 MG/ML INJ ONE (14:23)
--- NOTE | 2019-11-23 14:59 | ER ---
Nurse's Notes [facility] Name: Cedrick Rodriguez Age: 49 yrs Sex: Male : 1970 Arrival Date: 11/23/2019 Time: :06 Bed 16 Private MD: Diagnosis: Periapical abscess with sinus-right maxilla Presentation: 11/22 09:25 Chief complaint: Patient states: "I have a tooth abscess on my right side and I saw a aa5 dentist on Wednesday and they gave me Amoxicillin and ibuprofen but it's not taking care of the pain and I haven't been able to sleep". 09:25 Coronavirus screen: Proceed with normal triage. Patient denies a cough. Patient denies aa5 shortness of breath or difficulty breathing. Patient denies measured and/or subjective temperature greater than 100.4F prior to today's visit. Patient denies travel on a cruise ship or to a country the [facility] currently lists as an affected area. Patient denies contact with known and/or suspected case of COVID-19. Ebola Screen: Patient negative for fever greater than or equal to 101.5 degrees Fahrenheit, and additional compatible Ebola Virus Disease symptoms. Initial Sepsis Screen: Does the patient meet any 2 criteria? No. Patient's initial sepsis screen is negative. Does the patient have a suspected source of infection? No. Patient's initial sepsis screen is negative. Risk Assessment: Do you want to hurt yourself or someone else? Patient reports no desire to harm self or others. Onset of symptoms was November 2019. 09:25 Acuity: VICENTE 4 aa5 09:25 Method Of Arrival: Ambulatory aa5 09:45 Acuity: VICENTE 3 jl7 Historical: - Allergies: 09:25 No Known Allergies; aa5 - PMHx: 09:25 Enlarge liver; Hypertension; Hypothyroidism; kidney issues; Myocardial infarction; aa5 Diabetes - IDDM; - PSHx: 09:25 Cholecystectomy; spleenectomy; Hernia repair; aa5 - Immunization history:: Adult Immunizations not up to date. - Social history:: Smoking status: Patient reports the use of cigarette tobacco products. Screenin:34 Abuse screen: Denies threats or abuse. Denies injuries from another. Nutritional jl7 screening: No deficits noted. Tuberculosis screening: No symptoms or risk factors identified. Fall Risk IV access (20 points). Assessment: 09:45 General: Appears in no apparent distress. uncomfortable, Behavior is calm, cooperative, jl7 appropriate for age. Pain: Complains of pain in right ear, right jewish and right jaw Pain currently is 10 out of 10 on a pain scale. Neuro: Level of Consciousness is awake, alert, obeys commands, Oriented to person, place, time, situation. Cardiovascular: Patient's skin is warm and dry. Respiratory: Airway is patent Respiratory effort is even, unlabored, Respiratory pattern is regular, symmetrical. EENT: Reports pain in mouth. Derm: Skin is pink, warm \\T\\ dry. 10:57 Reassessment: Patient is alert, oriented x 3, equal unlabored respirations, skin aa5 warm/dry/pink. Pt taken to CT via wheelchair . 12:15 Reassessment: Pt requesting more pain medicine, medicated as ordered. jl7 13:48 Reassessment: ERP reports there is a call out to Dr. Moore for a consult, awaiting for jl7 call back at this time. 14:30 Reassessment: Patient appears in no apparent distress at this time. No changes from jl7 previously documented assessment. Patient and/or family updated on plan of care and expected duration. Pain level reassessed. Patient is alert, oriented x 3, equal unlabored respirations, skin warm/dry/pink. Patient states feeling better. Patient states symptoms have improved. Vital Signs: 09:25 BP 135 / 96; Pulse 89; Resp 16 S; Temp 97.9(O); Pulse Ox 97% on R/A; Weight 87.54 kg aa5 (R); Height 5 ft. 9 in. (175.26 cm) (R); Pain 10/10; 10:00 BP 128 / 88; Pulse 92; Resp 17; Pulse Ox 100% ; jl7 11:48 BP 125 / 86; Pulse 95; Resp 15; Pulse Ox 100% ; jl7 13:49 BP 153 / 98; Pulse 85; Resp 16; Pulse Ox 100% ; jl7 14:23 BP 127 / 94; Pulse 90; Resp 16; Pulse Ox 100% ; jl7 09:25 Body Mass Index 28.50 (87.54 kg, 175.26 cm) aa5 ED Course: 09:06 Patient arrived in ED. as 09:25 Arm band placed on Patient placed in an exam room, on a stretcher. aa5 09:27 [facility] cp 09:27 Ishan Jalloh MD is Attending Physician. cp 09:33 Triage completed. aa5 09:45 Patient has correct armband on for positive identification. Placed in gown. Bed in low jl7 position. Call light in reach. Side rails up X 1. Pulse ox on. NIBP on. 10:12 Adrianna Swenson, TOMÁS is Primary Nurse. jl7 10:15 Missed attempt(s): 22 gauge in left antecubital area. Bleeding controlled, band aid jl7 applied, catheter tip intact. 10:30 Missed attempt(s): 22 gauge in right hand. jl7 10:55 Initial lab(s) drawn, by me, sent to lab. Inserted saline lock: 22 gauge in left aa5 forearm, using aseptic technique. Blood collected. 11:06 CT Facial Bones W/ Con \\T\\ Mpr In Process Unspecified. EDMS 14:[address] gonzalez office, he is in surgery, will call back. bd 14:55 Stanley Luciano DDS is Referral Physician. cp 15:06 No provider procedures requiring assistance completed. IV discontinued, intact, jl7 bleeding controlled, No redness/swelling at site. Pressure dressing applied. Administered Medications: 11:15 Drug: morphine 2 mg Route: IVP; Site: left forearm; jl7 12:15 Drug: morphine 2 mg Route: IVP; Site: left forearm; jl7 12:45 Follow up: Response: No adverse reaction; Pain is decreased jl7 12:25 Drug: Clindamycin 900 mg Route: IVPB; Infused Over: 30 mins; Site: left forearm; jl7 12:55 Follow up: Response: No adverse reaction; IV Status: Completed infusion jl7 14:20 Drug: TORadol - Ketorolac 15 mg Route: IVP; Site: left forearm; jl7 14:50 Follow up: Response: No adverse reaction; Pain is decreased jl7 14:23 Drug: fentaNYL (PF) 25 mcg Route: IVP; Site: left forearm; jl7 14:50 Follow up: Response: No adverse reaction; Pain is decreased jl7 15:05 Not Given (Physician Discretion): Marcaine (0.5 %) 10 ml 10 ml Infiltration once jl7 15:05 Not Given (Physician Discretion): Lidocaine-Epinephrine -1%: (1:100,000) 1 application jl7 20 ml Infiltration once; to bedside Outcome: 14:59 Discharge ordered by . noa 15:06 Discharged to home ambulatory. jl7 15:06 Condition: stable 15:06 Discharge instructions given to patient, Instructed on discharge instructions, follow up and referral plans. medication usage, Demonstrated understanding of instructions, follow-up care, medications, Prescriptions given X 2. 15:06 Patient left the ED. jl7 Signatures: Dispatcher [employer] EDMS Pauly Chan Amelia as Calderon, Audri, RN RN aa5 Jg Frey PA PA cp Leal, Jahala RN RN jl7
--- NOTE | 2019-11-23 14:59 | EDPHYS ---
Physician Documentation [facility] Name: Cedrick Rodriguez Age: 49 yrs Sex: Male : 1970 Arrival Date: 11/23/2019 Time: 09:06 Bed 16 Private MD: ED Physician Ishan Jalloh HPI: 11/22 10:00 This 49 yrs old Male presents to ER via Ambulatory with complaints of cp Toothache. 10:00 The patient presents with pain, swelling. The problem is located in the right upper jaw.cp 10:00 Onset: The symptoms/episode began/occurred last week. Duration: The symptoms are cp continuous. Associated signs and symptoms: Pertinent negatives: anorexia, dysphagia, fever, inability to eat. The patient has been recently seen by a physician: a dentist, in [facility], 3 day(s) ago, with similar presenting complaints, and apparently given a diagnosis of dental abscess, prescribed Amoxicillin and ibuprofen for pain. Historical: - Allergies: 09:25 No Known Allergies; aa5 - PMHx: 09:25 Enlarge liver; Hypertension; Hypothyroidism; kidney issues; Myocardial infarction; aa5 Diabetes - IDDM; - PSHx: 09:25 Cholecystectomy; spleenectomy; Hernia repair; aa5 - Immunization history:: Adult Immunizations not up to date. - Social history:: Smoking status: Patient reports the use of cigarette tobacco products. ROS: 10:05 Constitutional: Negative for body aches, chills, fever, poor PO intake. cp 10:05 Eyes: Negative for injury, pain, redness, and discharge. cp 10:05 ENT: Positive for Teeth pain Negative for drainage from ear(s), ear pain, sore throat, difficulty swallowing, difficulty handling secretions. 10:05 Neck: Negative for stiffness. 10:05 Respiratory: Negative for cough, shortness of breath, wheezing. 10:05 Abdomen/GI: Negative for nausea, vomiting, and diarrhea. 10:05 Skin: Negative for rash. 10:05 Neuro: Negative for headache. 10:05 All other systems are negative. Exam: 10:15 Constitutional: The patient appears in no acute distress, alert, awake, non-toxic, well cp developed, well nourished. 10:15 Head/face: Noted is swelling, that is mild, of the right cheek and right upper jaw. cp 10:15 Eyes: Periorbital structures: appear normal, Conjunctiva: normal, no exudate, no injection, Lids and lashes: appear normal, bilaterally. 10:15 ENT: External ear(s): are unremarkable, Ear canal(s): are normal, clear, TM's: dullness, bilaterally, Nose: is normal, Mouth: Lips: moist, Oral mucosa: moist, Gums: reddened, swollen, on the right upper gumline, Tongue: is normal, Posterior pharynx: is normal, airway is patent, no erythema, no exudate, Dental exam: dental caries, that is severe, diffusely, fractured teeth are noted, diffusely, missing teeth, diffusely, pain, that is moderate, specifically in the upper right second bicuspid (#4), upper right first bicuspid (#5) and upper right cuspid (#6), Voice: is normal. 10:15 Neck: ROM/movement: is normal, is supple, no nuchal rigidity. 10:15 Chest/axilla: Inspection: normal. 10:15 Cardiovascular: Rate: normal, Rhythm: regular. 10:15 Respiratory: the patient does not display signs of respiratory distress, Respirations: normal, no use of accessory muscles, labored breathing, is not present. 10:15 Abdomen/GI: Exam negative for discomfort, distension, guarding, Inspection: abdomen appears normal. Vital Signs: 09:25 BP 135 / 96; Pulse 89; Resp 16 S; Temp 97.9(O); Pulse Ox 97% on R/A; Weight 87.54 kg aa5 (R); Height 5 ft. 9 in. (175.26 cm) (R); Pain 10/10; 10:00 BP 128 / 88; Pulse 92; Resp 17; Pulse Ox 100% ; jl7 11:48 BP 125 / 86; Pulse 95; Resp 15; Pulse Ox 100% ; jl7 13:49 BP 153 / 98; Pulse 85; Resp 16; Pulse Ox 100% ; jl7 14:23 BP 127 / 94; Pulse 90; Resp 16; Pulse Ox 100% ; jl7 09:25 Body Mass Index 28.50 (87.54 kg, 175.26 cm) aa5 MDM: 09:48 Patient medically screened. cp 10:00 Differential diagnosis: dental caries, dental abscess, pericoronitis, osteomyelitis. cp 12:30 Physician consultation: Stanley Luciano MARIO was called at 12:30, left message as cp physician is in surgery. 14:30 Physician consultation: Stanley Luciano LAYLAJorge was called at 14:30, unavailable, office cp informed secretary book keeper Pauly that patient can contact clinic to schedule appt next week. 14:58 Data reviewed: vital signs, nurses notes, lab test result(s), radiologic studies, CT cp scan, I have discussed the patient's presentation/case with the attending Emergency Department Physician; and as a result, I will discharge patient. 14:58 Counseling: I had a detailed discussion with the patient and/or guardian regarding: the cp historical points, exam findings, and any diagnostic results supporting the discharge/admit diagnosis, lab results, radiology results, the need for outpatient follow up, for definitive care, maxillary-facial surgery, to return to the emergency department if symptoms worsen or persist or if there are any questions or concerns that arise at home. Response to treatment: the patient's symptoms have mildly improved after treatment, VSS. Pain improved, patient appears non-toxic. Will discharge to home for continued monitoring. 11/22 09:55 Order name: CBC with Diff; Complete Time: 11:21 cp 11/22 09:55 Order name: BMP; Complete Time: 11:21 cp 11/22 09:55 Order name: CT Facial Bones W/ Con \T\ Mpr; Complete Time: 12:17 cp 11/22 13:54 Order name: CREATININE WHOLE BLOOD; Complete Time: 14:49 EDMS 11/22 09:55 Order name: IV; Complete Time: 11:01 cp Administered Medications: 11:15 Drug: morphine 2 mg Route: IVP; Site: left forearm; jl7 12:15 Drug: morphine 2 mg Route: IVP; Site: left forearm; jl7 12:45 Follow up: Response: No adverse reaction; Pain is decreased jl7 12:25 Drug: Clindamycin 900 mg Route: IVPB; Infused Over: 30 mins; Site: left forearm; jl7 12:55 Follow up: Response: No adverse reaction; IV Status: Completed infusion jl7 14:20 Drug: TORadol - Ketorolac 15 mg Route: IVP; Site: left forearm; jl7 14:50 Follow up: Response: No adverse reaction; Pain is decreased jl7 14:23 Drug: fentaNYL (PF) 25 mcg Route: IVP; Site: left forearm; jl7 14:50 Follow up: Response: No adverse reaction; Pain is decreased jl7 15:05 Not Given (Physician Discretion): Marcaine (0.5 %) 10 ml 10 ml Infiltration once jl7 15:05 Not Given (Physician Discretion): Lidocaine-Epinephrine -1%: (1:100,000) 1 application jl7 20 ml Infiltration once; to bedside Disposition: 15:15 Chart complete. cp 11/23 14:52 Co-signature as Attending Physician, Ishan Jalloh MD I agree with the assessment and kdr plan of care. Disposition: 11/23/19 14:59 Discharged to Home. Impression: Periapical abscess with sinus - right maxilla. - Condition is Stable. - Discharge Instructions: Dental Abscess, Dental Pain, Diet and Dental Disease. - Prescriptions for Clindamycin HCl 300 mg Oral Capsule - take 1 capsule by ORAL route every 6 hours for 10 days; 40 capsule. Tylenol- Codeine #3 300-30 mg Oral Tablet - take 2 tablets by ORAL route every 6 hours As needed; 20 tablet. - Medication Reconciliation Form, Thank You Letter, Antibiotic Education, Prescription Opioid Use form. - Follow up: Stanley Luciano DDS; When: 1 - 2 days; Reason: Recheck today's complaints. - Problem is an ongoing problem. - Symptoms have improved. Signatures: Dispatcher [employer] EDOK Ishan Jalloh MD MD [facility] Morales RN RN aa5 Jg Frey PA PA cp Leal, Jahala RN RN jl7 Corrections: (The following items were deleted from the chart) 11/22 15:06 14:59 11/23/2019 14:59 Discharged to Home. Impression: Periapical abscess with sinus - jl7 right maxilla. Condition is Stable. Forms are Medication Reconciliation Form, Thank You Letter, Antibiotic Education, Prescription Opioid Use. Follow up: Stanley Luciano; When: 1 - 2 days; Reason: Recheck today's complaints. Problem is an ongoing problem. Symptoms have improved. cp
[2019-11-23 15:13] VITALS: TEMP 97.9
[2019-11-23 15:15] VITALS: O2SAT 100
[2019-11-23 15:18] VITALS: BP 127/94
== END 2019-11-23 15:06 | disposition home or self-care (01) ==
LOC: ER 09:04
DX: K04.6 Periapical abscess with sinus (principal); I10 Essential (primary) hypertension; I25.2 Old myocardial infarction; F17.210 Nicotine dependence, cigarettes, uncomplicated
CPT/HCPCS: 96365; 85025; 80048; 36415; 82565; 70487; 76377; 96375; 99284; Q9967; J3010; J2270 ×2

== ENCOUNTER 2020-02-24 20:45 | Emergency (ER) | payer OTHER ==
[2020-02-24 21:54] LABS: Absolute Lymphocytes (CBC) 4.4 K/uL (0.7-4.9); Basophils % 1.3 % (0-1.3); Hematocrit 44.3 % (39.6-49.0); Lymphocytes % 36.4 % (15.3-44.8); MPV 8.4 fL (7.6-11.3); RBC Red Blood Cell Count 4.87 M/uL (4.33-5.43)
[2020-02-24 21:56] LABS: Protime INR 0.87
[2020-02-24 22:13] LABS: ALT/SGPT 41 U/L (12-78); AST/SGOT 30 U/L (15-37); Alkaline Phosphatase 109 U/L (45-117); BUN Blood Urea Nitrogen 10 mg/dL (7-18); Bicarbonate 23 mmol/L (21-32); Bilirubin Direct < 0.1 mg/dL (0-0.2); Bilirubin Total 0.3 mg/dL (0.2-1.0); Glucose Level 198 mg/dL (74-106); Magnesium 1.8 mg/dL (1.8-2.4); NT PRO-BNP 8 pg/mL (<125); Potassium 4.1 mmol/L (3.5-5.1); Protein, Total 8.1 g/dL (6.4-8.2); Sodium Level 136 mmol/L (136-145); Troponin (Emerg Dept Use Only) < 0.02 ng/mL (0.0-0.045)
[2020-02-25] MEDS ORDERED: ACETAMINOPHEN 500 MG TAB ONE (01:24)
--- NOTE | 2020-02-25 03:09 | ER ---
Nurse's Notes [facility] Name: Cedrick Rodriguez Age: 49 yrs Sex: Male : 1970 Arrival Date: 02/24/2020 Time: 20:51 Bed 4 Private MD: Diagnosis: Other chest pain;Unspecified abdominal pain Presentation: 02/23 21:09 Chief complaint: Patient states: Pain on the LUQ, L rib cage, L flank x 3 days. SOB ca1 when laying down x 3 days. Denies cough. Coronavirus screen: Client denies travel out of the [place] in the last 14 days. At this time, the client does not indicate any symptoms associated with coronavirus-19. Ebola Screen: Patient negative for fever greater than or equal to 101.5 degrees Fahrenheit, and additional compatible Ebola Virus Disease symptoms Patient denies exposure to infectious person. Patient denies travel to an Ebola-affected area in the 21 days before illness onset. No symptoms or risks identified at this time. Initial Sepsis Screen: Does the patient meet any 2 criteria? No. Patient's initial sepsis screen is negative. Does the patient have a suspected source of infection? No. Patient's initial sepsis screen is negative. Risk Assessment: Do you want to hurt yourself or someone else? Patient reports no desire to harm self or others. Onset of symptoms was February 24, 2020. 21:09 Method Of Arrival: Ambulatory ca1 21:09 Acuity: VICENTE 3 ca1 Triage Assessment: 21:57 General: Appears in no apparent distress. Behavior is calm, cooperative. Respiratory: mg2 the patient has mild shortness of breath. Historical: - Allergies: 21:12 No Known Allergies; ca1 - PMHx: 21:12 Diabetes - IDDM; Diabetes - NIDDM; Enlarge liver; Hypertension; kidney issues; ca1 Myocardial infarction; Hypothyroidism; - PSHx: 21:12 Cholecystectomy; spleenectomy; Hernia repair; ca1 - Immunization history:: Adult Immunizations up to date. - Social history:: Smoking status: Patient reports the use of cigarette tobacco products, smokes one pack cigarettes per day. Screenin:21 Abuse screen: Denies threats or abuse. Nutritional screening: No deficits noted. ea Tuberculosis screening: No symptoms or risk factors identified. Fall Risk IV access (20 points). Assessment: 21:20 General: Appears in no apparent distress. Behavior is calm, cooperative, appropriate ea for age. Pain: Complains of pain in left lateral anterior chest. Neuro: Level of Consciousness is awake, alert, obeys commands, Oriented to person, place, time, situation. Cardiovascular: Patient's skin is warm and dry. Respiratory: Airway is patent Respiratory effort is even, unlabored, Respiratory pattern is regular, symmetrical, Breath sounds are clear bilaterally. Derm: Skin is pink, warm \\T\\ dry. Musculoskeletal: Circulation, motion, and sensation intact. 21:57 Cardiovascular: Rhythm is. Respiratory: Reports shortness of breath. GI: No signs mg2 and/or symptoms were reported involving the gastrointestinal system. : No signs and/or symptoms were reported regarding the genitourinary system. EENT: No signs and/or symptoms were reported regarding the EENT system. 22:30 Reassessment: Patient and/or family updated on plan of care and expected duration. Pain ea level reassessed. Patient is alert, oriented x 3, equal unlabored respirations, skin warm/dry/pink. 23:28 Reassessment: Patient and/or family updated on plan of care and expected duration. Pain ea level reassessed. Patient is alert, oriented x 3, equal unlabored respirations, skin warm/dry/pink. 02/24 00:24 Reassessment: Patient appears in no apparent distress at this time. Patient and/or mg2 family updated on plan of care and expected duration. Pain level reassessed. Patient is alert, oriented x 3, equal unlabored respirations, skin warm/dry/pink. to be sent to CT. 01:09 Reassessment: Patient appears in no apparent distress at this time. Patient and/or mg2 family updated on plan of care and expected duration. Pain level reassessed. Patient is alert, oriented x 3, equal unlabored respirations, skin warm/dry/pink. 01:10 Reassessment: patient complained of headache. provider informed and ordered pain mg2 medicine. 02:05 Reassessment: patient sent to CT scan. mg2 Vital Signs: 02/23 21:09 BP 152 / 97; Pulse 91; Resp 16 S; Temp 98.6(O); Pulse Ox 98% on R/A; Weight 90.72 kg ca1 (R); Height 5 ft. 9 in. (175.26 cm) (R); 21:38 BP 142 / 97; Pulse 97; Resp 18; Pulse Ox 99% ; ea 22:39 BP 121 / 81; Pulse 81; Resp 22; Pulse Ox 97% on R/A; ea 23:07 BP 126 / 85; Pulse 80; Resp 18; Pulse Ox 100% on R/A; mg2 02/24 01:08 BP 129 / 90; Pulse 74; Resp 18; Pulse Ox 98% on R/A; mg2 02/23 21:09 Body Mass Index 29.53 (90.72 kg, 175.26 cm) ca1 ED Course: 02/23 20:51 Patient arrived in ED. bp1 21:11 Triage completed. ca1 21:12 Arm band placed on right wrist. ca1 21:20 Renee Clayton, RN is Primary Nurse. ea 21:23 Patient has correct armband on for positive identification. Placed in gown. Bed in low ea position. Call light in reach. Pulse ox on. NIBP on. 21:39 Jg Frey PA is PHCP. cp 21:39 César Saez MD is Attending Physician. cp 21:56 No provider procedures requiring assistance completed. Inserted saline lock: 20 gauge mg2 in right forearm, using aseptic technique. Blood collected. 23:03 XRAY Chest (1 view) In Process Unspecified. EDMS 02/24 00:22 IV discontinued, intact, bleeding controlled, No redness/swelling at site. Pressure mg2 dressing applied. 00:23 Inserted saline lock: 22 gauge in left upper arm, using aseptic technique. mg2 00:54 CT Chest Abdomen W/ Contrast In Process Unspecified. EDMS 01:16 covid swab sent to lab. mg2 02:35 CT Pelvis wo Cont In Process Unspecified. EDMS 03:13 IV discontinued, intact, bleeding controlled, No redness/swelling at site. Pressure mg2 dressing applied. Administered Medications: 01:15 Drug: Tylenol 1000 mg Route: PO; mg2 02:05 Follow up: Response: No adverse reaction; Marked relief of symptoms; Pain is decreased mg2 Outcome: 03:08 Discharge ordered by . cp 03:14 Discharged to home ambulatory. mg2 03:14 Condition: stable 03:14 Discharge instructions given to patient, Instructed on discharge instructions, follow up and referral plans. Demonstrated understanding of instructions, follow-up care, Prescriptions given X 1. 03:14 Patient left the ED. mg2 Addendum: 02/28/2020 14:51 Addendum: COVID-19 Result: Negative result given to RN to notify pt. Attempted to s s contact pt regarding negative COVID-19 swab results. Unable to leave voice mail due to the number provided was either not a working number, the voice mail has not been set up, or the voice mailbox is full.. Other: attempted to call daughter's phone number on face sheet for "person to notify". Unable to make contact. Signatures: Dispatcher [employer] Disha Tran RN RN ss Jg Frey, Renee Trejo cp RN Fab Weeks ea, RN RN mg2 Radha Ascencio RN RN Blanquita Jacob
--- NOTE | 2020-02-25 03:09 | EDPHYS ---
Physician Documentation [facility] Name: Cedrick Rodriguez Age: 49 yrs Sex: Male : 1970 Arrival Date: 02/24/2020 Time: 20:51 Bed 4 Private MD: ED Physician César Saez HPI: 02/23 21:40 This 49 yrs old Male presents to ER via Ambulatory with complaints of cp Shortness Of Breath, Breathing Difficulty, Lung Pain. 21:40 The patient has shortness of breath with light activity, while lying flat. cp 21:40 Onset: The symptoms/episode began/occurred 3 day(s) ago. cp 21:40 Duration: The symptoms are continuous, and are unchanged since they started. Associated cp signs and symptoms: Pertinent positives: chest pain, left lateral lung pain, Pertinent negatives: productive cough, diaphoresis, dizziness, fever. Severity of symptoms: in the emergency department the symptoms are unchanged despite home interventions. Historical: - Allergies: 21:12 No Known Allergies; ca1 - PMHx: 21:12 Diabetes - IDDM; Diabetes - NIDDM; Enlarge liver; Hypertension; kidney issues; ca1 Myocardial infarction; Hypothyroidism; - PSHx: 21:12 Cholecystectomy; spleenectomy; Hernia repair; ca1 - Immunization history:: Adult Immunizations up to date. - Social history:: Smoking status: Patient reports the use of cigarette tobacco products, smokes one pack cigarettes per day. ROS: 21:45 Constitutional: Negative for body aches, chills, fever, poor PO intake. cp 21:45 Eyes: Negative for injury, pain, redness, and discharge. cp 21:45 Cardiovascular: Positive for chest pain, of the left lateral anterior chest, Negative for edema. 21:45 Respiratory: Positive for cough, with no reported sputum, shortness of breath, on exertion. Negative for wheezing. 21:45 Abdomen/GI: Positive for abdominal pain, of the left upper quadrant and posterior aspect of left lateral abdomen and anterior aspect of left lateral abdomen, Negative for vomiting, diarrhea, constipation, anorexia. 21:45 : Negative for urinary symptoms. 21:45 Skin: Negative for rash. 21:45 Neuro: Negative for altered mental status, headache, weakness. 21:45 All other systems are negative. Exam: 21:55 Constitutional: The patient appears in no acute distress, alert, awake, cp non-diaphoretic, non-toxic, well developed, well nourished. 21:55 Head/Face: Normocephalic, atraumatic. cp 21:55 Eyes: Periorbital structures: appear normal, Conjunctiva: normal, no exudate, no injection, Sclera: no appreciated abnormality, Lids and lashes: appear normal, bilaterally. 21:55 ENT: External ear(s): are unremarkable, Nose: is normal, Mouth: Lips: moist, Oral mucosa: moist, Posterior pharynx: Airway: no evidence of obstruction, patent. 21:55 Neck: ROM/movement: is normal, is supple, without pain, no range of motions limitations. 21:55 Chest/axilla: Inspection: normal, rash, is not appreciated, Palpation: crepitus, is not appreciated, tenderness, that is mild, of the left lateral chest wall. 21:55 Cardiovascular: Rate: normal, Rhythm: regular, Edema: is not appreciated, JVD: is not appreciated. 21:55 Respiratory: the patient does not display signs of respiratory distress, Respirations: normal, no use of accessory muscles, no retractions, labored breathing, is not present, Breath sounds: are clear throughout, no decreased breath sounds, no stridor, no wheezing. 21:55 Abdomen/GI: Inspection: abdomen appears normal, Bowel sounds: active, all quadrants, Palpation: soft, in all quadrants, mild abdominal tenderness, in the anterior aspect of left lateral abdomen, posterior aspect of left lateral abdomen and left upper quadrant, rebound tenderness, is not appreciated, involuntary guarding, is not appreciated. 21:55 Skin: no rash present. 21:55 Neuro: Orientation: to person, place \T\ time. Mentation: is normal, Motor: moves all fours, strength is normal, Sensation: is normal, Gait: is steady, at a normal pace. 22:05 ECG was reviewed by the Attending Physician. cp Vital Signs: 21:09 BP 152 / 97; Pulse 91; Resp 16 S; Temp 98.6(O); Pulse Ox 98% on R/A; Weight 90.72 kg ca1 (R); Height 5 ft. 9 in. (175.26 cm) (R); 21:38 BP 142 / 97; Pulse 97; Resp 18; Pulse Ox 99% ; ea 22:39 BP 121 / 81; Pulse 81; Resp 22; Pulse Ox 97% on R/A; ea 23:07 BP 126 / 85; Pulse 80; Resp 18; Pulse Ox 100% on R/A; mg2 02/24 01:08 BP 129 / 90; Pulse 74; Resp 18; Pulse Ox 98% on R/A; mg2 02/23 21:09 Body Mass Index 29.53 (90.72 kg, 175.26 cm) ca1 MDM: 02/23 21:48 Patient medically screened. cp 22:00 Differential diagnosis: CHF exacerbation, Chronic Obstructive Pulmonary Disease cp Myocardial Infarction pneumonia, Pneumothorax pulmonary edema, Pulmonary Embolism bowel obstruction, rib fracture. 02/24 03:07 Data reviewed: vital signs, nurses notes, lab test result(s), EKG, radiologic studies, cp CT scan, plain films. 03:07 Antibiotic administration: Not indicated, the patient does not have an appreciated cp infiltrate. Test interpretation: by ED physician or midlevel provider: ECG, chest xray negative for infiltrates. Counseling: I had a detailed discussion with the patient and/or guardian regarding: the historical points, exam findings, and any diagnostic results supporting the discharge/admit diagnosis, lab results, radiology results, to return to the emergency department if symptoms worsen or persist or if there are any questions or concerns that arise at home. Response to treatment: the patient's symptoms have markedly improved after treatment, and as a result, I will discharge patient. Special discussion: Based on the patient's history, exam, and Dx evaluation, there is no indication for emergent intervention or inpatient Tx. It is understood by the patient/guardian that if the Sx's persist or worsen they need to return immediately for re-evaluation. 02/23 21:34 Order name: Basic Metabolic Panel; Complete Time: 22:51 02/24 00:54 Interpretation: Normal except: GLUC 198; GFR 80. cp 02/23 21:34 Order name: CBC with Diff; Complete Time: 22:51 02/24 00:54 Interpretation: Normal except: WBC 12.1. cp 02/23 21:34 Order name: LFT's; Complete Time: 22:51 02/23 21:34 Order name: Magnesium; Complete Time: 22:51 02/23 21:34 Order name: NT PRO-BNP; Complete Time: 22:51 02/23 21:34 Order name: PT-INR; Complete Time: 22:51 02/23 21:34 Order name: Troponin (emerg Dept Use Only); Complete Time: 22:51 02/23 21:35 Order name: XRAY Chest (1 view) 02/23 21:35 Order name: EKG; Complete Time: 21:36 02/23 21:35 Order name: Cardiac monitoring; Complete Time: 21:56 02/23 22:07 Order name: COVID-19 02/23 22:52 Order name: CT Chest Abdomen W/ Contrast 02/24 01:30 Order name: CT Pelvis wo Cont 02/23 21:35 Order name: EKG - Nurse/Tech; Complete Time: 21:56 02/23 21:35 Order name: IV Saline Lock; Complete Time: 21:56 02/23 21:35 Order name: Labs collected and sent; Complete Time: 21:56 02/23 21:35 Order name: O2 Per Protocol; Complete Time: :56 02/23 21:35 Order name: O2 Sat Monitoring; Complete Time: :56 02/24 02:59 Order name: Urine Dipstick-Ancillary (obtain specimen); Complete Time: 03:07 cp EC/19 22:05 Rate is 80 beats/min. Rhythm is regular. FL interval is normal. QRS interval is normal. cp QT interval is normal. T waves are Inverted in lead aVR. Interpreted by me. Reviewed by me. Administered Medications: 02/24 01:15 Drug: Tylenol 1000 mg Route: PO; mg2 02:05 Follow up: Response: No adverse reaction; Marked relief of symptoms; Pain is decreased mg2 Disposition: 05:11 Co-signature as Attending Physician, César Saez MD. [email or web address] Disposition: 02/25/20 03:08 Discharged to Home. Impression: Other chest pain, Unspecified abdominal pain. - Condition is Stable. - Discharge Instructions: Abdominal Pain, Adult, Nonspecific Chest Pain. - Prescriptions for Ibuprofen 800 mg Oral Tablet - take 1 tablet by ORAL route every 8 hours As needed take with food; 30 tablet. - Medication Reconciliation Form, Thank You Letter, Antibiotic Education, Prescription Opioid Use form. - Follow up: Private Physician; When: 2 - 3 days; Reason: Recheck today's complaints. - Problem is new. - Symptoms have improved. Signatures: Dispatcher [employer] EDMS Jg Frey PA PA cp Antunez, Elena, RN RN ea Gardose, Michele, RN RN mg2 Acob, Cheryl, RN RN ca1 Holmes, Maurice, MD MD [email or web address] Corrections: (The following items were deleted from the chart) 03:14 03:08 02/25/2020 03:08 Discharged to Home. Impression: Other chest pain; Unspecified mg2 abdominal pain. Condition is Stable. Forms are Medication Reconciliation Form, Thank You Letter, Antibiotic Education, Prescription Opioid Use. Follow up: Private Physician; When: 2 - 3 days; Reason: Recheck today's complaints. Problem is new. Symptoms have improved. cp
[2020-02-25 03:26] VITALS: TEMP 98.6
[2020-02-25 03:31] VITALS: BP 129/90; O2SAT 98
--- NOTE | 2020-02-25 08:26 | RAD REPORT ---
EXAM DESCRIPTION: RAD - Chest Single View - 02/24/2020 11:02 pm CLINICAL HISTORY: CHEST PAIN COMPARISON: Single-view chest March 2018 TECHNIQUE: AP portable chest image was obtained 02/24/2020 11:02 pm . FINDINGS: Lung volumes are low. No focal mass or consolidation. Interstitial pattern not clearly dif ferent from comparison. Heart and vasculature are normal. No measurable pleural effusion and no pneum othorax. No acute bony abnormality seen. No acute aortic findings suspected. IMPRESSION: No acute cardiopulmonary process. No significant change from comparison.
--- NOTE | 2020-02-25 11:01 | RAD REPORT ---
EXAM DESCRIPTION: CT - Chest Abdomen W Con - 02/25/2020 4:52 am CLINICAL HISTORY: PAIN COMPARISON: None Available. TECHNIQUE: CT of the chest and abdomen obtained on the uncomplicated intravenous administration of i odinated contrast. Due to possible abnormality seen in the inferior slices of the CT of the abdomen a noncontrast enhanced CT of the pelvis was obtained shortly after initial abdomen imaging. FINDINGS: Chest: Thyroid: No abnormalities of the visualized thyroid. Great Vessels: Great vessels have normal anatomic configuration. Thoracic Aorta: No abnormalities of the thoracic aorta identified. No aortic dissection. Pulmonary arteries: No central filling defect. Heart: No cardiomegaly, significant pericardial effusion, or coronary artery atherosclerosis Lymph Nodes: No enlarged mediastinal lymph nodes identified. Esophagus: No abnormalities of the esophagus identified Other: No additional findings. Lungs: No airspace opacities identified. Parahilar low in cyst. Pleura: No pleural effusion or pneumothorax. Trachea/Airways: No abnormalities of the visualized trachea or airways. Abdomen: Liver: The liver has normal size and density. No intrahepatic mass or biliary dilatation. Gallbladder: Cholecystectomy. Spleen, Pancreas, and Adrenal Glands: The pancreas and adrenal glands are unremarkable. Irregular a ppearance of the spleen may be related to previous injury. Kidneys: The kidneys have normal size and contour without evidence of solid mass or hydronephrosis. Nonspecific bilateral perinephric and proximal periureteral fat stranding. Vasculature: Aortoiliac atherosclerosis. IVC is unremarkable. The portal vein is patent. The proxim al visceral and renal arteries are patent. Stomach: The stomach and duodenum have normal course. Other: No free intraperitoneal air. No free fluid or lymphadenopathy. Prior ventral hernia repair . Minimal contusion in the left lateral abdominal wall subcutaneous soft tissues. Pelvis: Bladder: Urinary bladder is unremarkable. Excreted contrast identified in the urinary bladder. Bowel: No dilated loops of large or small bowel. Large amount of stool throughout the colon. Appendix: Normal appendix. Pelvis: Prostate is not enlarged. Small bilateral fat-containing inguinal hernias. Bones: Mild degenerative endplate spondylosis. No acute osseous abnormalities identified. IMPRESSION: 1. Minimal contusion in the left lateral abdominal wall subcutaneous soft tissues. No ac yurok traumatic injury identified in the chest or abdomen. 2. Mild nonspecific perinephric and periureteral fat stranding. Correlation with urinalysis recommend ed. 3. Large amount of stool. This exam was performed according to our departmental dose-optimization program, which includes autom ated exposure control, adjustment of the mA and/or kV according to patient size and/or use of iterati ve reconstruction technique. Electronically signed by: Guru Mackenzie 02/25/2020 2:50 AM CDT Due to temporary technical issues with the PACS/Fluency reporting system, reports are being signed by the in house radiologist without review as a courtesy to ensure prompt reporting. The interpreting r adiologist is fully responsible for the content of the report.
--- NOTE | 2020-02-25 12:56 | RAD REPORT ---
EXAM DESCRIPTION: CT - Pelvis Wo Cont - 02/25/2020 4:52 am CLINICAL HISTORY: PAIN COMPARISON: None Available. TECHNIQUE: CT of the chest and abdomen obtained on the uncomplicated intravenous administration of i odinated contrast. Due to possible abnormality seen in the inferior slices of the CT of the abdomen a noncontrast enhanced CT of the pelvis was obtained shortly after initial abdomen imaging. FINDINGS: Chest: Thyroid: No abnormalities of the visualized thyroid. Great Vessels: Great vessels have normal anatomic configuration. Thoracic Aorta: No abnormalities of the thoracic aorta identified. No aortic dissection. Pulmonary arteries: No central filling defect. Heart: No cardiomegaly, significant pericardial effusion, or coronary artery atherosclerosis Lymph Nodes: No enlarged mediastinal lymph nodes identified. Esophagus: No abnormalities of the esophagus identified Other: No additional findings. Lungs: No airspace opacities identified. Parahilar low in cyst. Pleura: No pleural effusion or pneumothorax. Trachea/Airways: No abnormalities of the visualized trachea or airways. Abdomen: Liver: The liver has normal size and density. No intrahepatic mass or biliary dilatation. Gallbladder: Cholecystectomy. Spleen, Pancreas, and Adrenal Glands: The pancreas and adrenal glands are unremarkable. Irregular a ppearance of the spleen may be related to previous injury. Kidneys: The kidneys have normal size and contour without evidence of solid mass or hydronephrosis. Nonspecific bilateral perinephric and proximal periureteral fat stranding. Vasculature: Aortoiliac atherosclerosis. IVC is unremarkable. The portal vein is patent. The proxim al visceral and renal arteries are patent. Stomach: The stomach and duodenum have normal course. Other: No free intraperitoneal air. No free fluid or lymphadenopathy. Prior ventral hernia repair . Minimal contusion in the left lateral abdominal wall subcutaneous soft tissues. Pelvis: Bladder: Urinary bladder is unremarkable. Excreted contrast identified in the urinary bladder. Bowel: No dilated loops of large or small bowel. Large amount of stool throughout the colon. Appendix: Normal appendix. Pelvis: Prostate is not enlarged. Small bilateral fat-containing inguinal hernias. Bones: Mild degenerative endplate spondylosis. No acute osseous abnormalities identified. IMPRESSION: 1. Minimal contusion in the left lateral abdominal wall subcutaneous soft tissues. No ac frannie traumatic injury identified in the chest or abdomen. 2. Mild nonspecific perinephric and periureteral fat stranding. Correlation with urinalysis recommend ed. 3. Large amount of stool. This exam was performed according to our departmental dose-optimization program, which includes autom ated exposure control, adjustment of the mA and/or kV according to patient size and/or use of iterati ve reconstruction technique. Electronically signed by: Guru Mackenzie 02/25/2020 2:50 AM CDT Due to temporary technical issues with the PACS/Fluency reporting system, reports are being signed by the in house radiologist without review as a courtesy to ensure prompt reporting. The interpreting r adiologist is fully responsible for the content of the report.
== END 2020-02-25 03:14 | disposition home or self-care (01) ==
LOC: ER 20:45
DX: R07.89 Other chest pain (principal); Z20.828 Contact with and (suspected) exposure to other viral communicable diseases; R10.9 Unspecified abdominal pain; I10 Essential (primary) hypertension; F17.210 Nicotine dependence, cigarettes, uncomplicated
CPT/HCPCS: 93005; 85025; 80048; 36415; 83735; 85610; 80076; 84484; 83880; 74160; 72192; 71260; 71045; 99284; U0002; Q9967

== ENCOUNTER 2021-02-08 14:32 | Emergency (ER) | payer OTHER ==
--- OUTSIDE RECORDS SUMMARY | 2021-02-08 14:54 | XMS REPORT | Continuity of Care Document ---
:1970 Author Organization [facility] t Address [address] [place] [address] Care Team Providers Name Role Phone Unavailable Unavailable Unavailable Problems This patient has no known problems. Allergies, Adverse Reactions, Alerts This patient has no known allergies or adverse reactions. Medications This patient has no known medications. Procedures This patient has no known procedures. Encounters Start End Encounter Admission Attending Care Care Encounter Source Date/Time Date/Time Type Type Clinicians Facility Department ID 2021-01-26 2021-01-26 Outpatient [facility] [id number] [facility] 2021-01-23 2021-01-23 Outpatient [facility] [id number] [facility] 2021-01-21 2021-01-21 Outpatient [facility] [id number] [facility] Results This patient has no known results.
--- NOTE | 2021-02-08 17:30 | RAD REPORT ---
EXAM DESCRIPTION: Rashaun Single View02/08/2021 5:07 pm CLINICAL HISTORY: cough COMPARISON: January 31, 2021 FINDINGS: The lungs appear clear of acute infiltrate. The heart is normal size IMPRESSION: No acute abnormalities displayed
--- NOTE | 2021-02-08 21:22 | ER ---
Nurse's Notes [facility] Name: Cedrick Rodriguez Age: 50 yrs Sex: Male : 1970 Arrival Date: 02/08/2021 Time: 14:34 Bed 12 Private MD: Nasra Kwok Diagnosis: Presentation: 02/08 15:25 Chief complaint: Patient states: SOB that began 1 week ago but worse today. Pt also c/o aa5 neck pain and mid-low back pain. Coronavirus screen: shortness of breath. Ebola Screen: Patient negative for fever greater than or equal to 101.5 degrees Fahrenheit, and additional compatible Ebola Virus Disease symptoms. Initial Sepsis Screen: Does the patient meet any 2 criteria? No. Patient's initial sepsis screen is negative. Does the patient have a suspected source of infection? No. Patient's initial sepsis screen is negative. Risk Assessment: Do you want to hurt yourself or someone else? Patient reports no desire to harm self or others. Onset of symptoms was 2020. 15:25 Method Of Arrival: Ambulatory aa5 15:25 Acuity: VICENTE 3 aa5 Historical: - Allergies: 15:26 No Known Allergies; aa5 - PMHx: 15:26 Diabetes - IDDM; Enlarge liver; Hypothyroidism; kidney issues; Myocardial infarction; aa5 - Immunization history:: Client reports receiving the Brandt \T\ Brandt single-dose vaccine. - Social history:: Smoking status: Patient reports the use of cigarette tobacco products, smokes one pack cigarettes per day. Vital Signs: 15:27 BP 100 / 52; Pulse 129; Resp 18 S; Temp 97.0(TE); Pulse Ox 100% on R/A; Weight 96.16 aa5 kg; Height 5 ft. 8 in. (172.72 cm) (R); Pain 10/10; 15:27 Body Mass Index 32.23 (96.16 kg, 172.72 cm) aa5 ED Course: 14:34 Patient arrived in ED. as 14:34 Nasra Kwok MD is Private Physician. as 15:25 Arm band placed on. aa5 15:26 Triage completed. aa5 15:33 EKG completed in triage. Results shown to MD. aa5 17:07 Chest Single View XRAY In Process Unspecified. EDMS 21:18 César Saez MD is Attending Physician. [facility] 21:20 Falguni Cifuentes, RN is Primary Nurse. lp1 21:21 [facility] Will disposition as lp1 left without being seen by a provider. Administered Medications: No medications were administered Outcome: 21:22 Patient left the ED. lp1 Signatures: Dispatcher [employer] EDMS Bev Calabrese Audri, RN RN aa5 Falguni Cifuentes RN RN lp1 César Saez MD MD [facility] Corrections: (The following items were deleted from the chart) 15:27 15:26 PMHx: Hypertension; aa5 aa5
[2021-02-08 21:26] VITALS: BP 100/52; TEMP 97; O2SAT 100
--- NOTE | 2021-02-10 17:00 | EKG ---
Test Date: 2021-02-08 Test Time: 15:30:52 Burlapper: AUDRA MEASUREMENT RESULTS: Intervals: Rate: 118 IA: 138 QRSD: 82 QT: 328 QTc: 459 [place]: P: 64 IA: 138 QRS: 68 T: 68 INTERPRETIVE STATEMENTS: Sinus tachycardia Otherwise normal ECG Compared to ECG 02/24/2020 21:56:16 Sinus rhythm no longer present Myocardial infarct finding no longer present Electronically Signed On 02-10-21 16:56:59 CDT by Allan Herrera
== END 2021-02-08 21:22 | disposition left against medical advice (07) ==
LOC: ER 14:32
DX: Z53.21 Procedure and treatment not carried out due to patient leaving prior to being seen by health care provider (principal)
CPT/HCPCS: 71045; 93005; 99282

== ENCOUNTER 2021-04-10 18:07 | Emergency (ER) | payer OTHER ==
[2021-04-10] MEDS ORDERED: NA CHLORIDE 0.9% 1,000 ML ONE (19:38)
[2021-04-10] MEDS ORDERED: NA CHLORIDE 0.9% 500 ML ONE (19:38)
[2021-04-10] MEDS ORDERED: MORPHINE 2 MG/ML SYR ONE (19:38)
[2021-04-10] MEDS ORDERED: ONDANSETRON 4 MG/2 ML VIAL ONE (19:38)
--- NOTE | 2021-04-10 20:06 | RAD REPORT ---
EXAM DESCRIPTION: RAD - Chest Single View - 04/10/2021 7:48 pm CLINICAL HISTORY: COUGH COMPARISON: Chest Single View dated 02/08/2021; Chest Pa And Lat (2 Views) dated 01/31/2021; Chest Sing le View dated 02/24/2020; Chest Single View dated 03/07/2018 FINDINGS: Lines: None. Lungs: Increased prominence of the pulmonary interstitium. Pleural: No significant pleural effusions or pneumothorax. Cardiac: The heart size is within normal limits. Bones: No acute fractures. Other: IMPRESSION: Increased prominence of the interstitium could reflect vascular congestion or a nonspeci fic process such as bronchitis or mild multifocal pneumonia.
[2021-04-10 20:27] LABS: Absolute Lymphocytes (CBC) 2.8 K/uL (0.7-4.9); Basophils % 2.7 % (0-1.3); Lymphocytes % 26.4 % (15.3-44.8); MPV 9.1 fL (7.6-11.3); RBC Red Blood Cell Count 4.89 M/uL (4.33-5.43)
[2021-04-10 20:32] LABS: Protime INR 0.83
[2021-04-10 20:47] LABS: ALT/SGPT 39 U/L (12-78); Albumin 4.1 g/dL (3.4-5.0); Alkaline Phosphatase 165 U/L (45-117); BUN Blood Urea Nitrogen 12 mg/dL (7-18); Bicarbonate 26 mmol/L (21-32); Bilirubin Direct < 0.1 mg/dL (0-0.2); Bilirubin Total 0.3 mg/dL (0.2-1.0); Lipase 182 U/L (73-393); NT PRO-BNP 6 pg/mL (<125); Potassium 3.9 mmol/L (3.5-5.1); Protein, Total 8.7 g/dL (6.4-8.2); Sodium Level 136 mmol/L (136-145); Troponin (Emerg Dept Use Only) < 0.02 ng/mL (0.0-0.045)
[2021-04-10 20:48] LABS: AST/SGOT 22 U/L (15-37); Glucose Level 418 mg/dL (74-106); Magnesium 1.7 mg/dL (1.8-2.4)
--- NOTE | 2021-04-10 21:08 | RAD REPORT ---
EXAM DESCRIPTION: CT - [id number] - 04/10/2021 8:44 pm CLINICAL HISTORY: Trauma, head and neck injury. PAIN COMPARISON: No comparisons TECHNIQUE: Axial 5 mm thick images of the head were obtained. Axial 2 mm thick images of the cervical spine were obtained with sagittal and coronal reconstruction images generated and reviewed. All CT scans are performed using dose optimization technique as appropriate and may include automated exposure control or mA/KV adjustment according to patient size. FINDINGS: CT HEAD WITHOUT CONTRAST: No acute hemorrhage, hydrocephalus or extra-axial collection is identified.No areas of brain edema or midline shift. Circumferential thickening in the left maxillary sinus. Several ethmoid air cells are opacified.The c alvarium is intact. CT CERVICAL SPINE WITHOUT CONTRAST: No fracture or subluxation.No prevertebral soft tissues swelling is identified. IMPRESSION: No acute intracranial or cervical spine findings.
[2021-04-10 21:12] LABS: Blood Morphology Comment NOT SEEN (NOT SEEN); Platelet Estimate ADEQ
--- NOTE | 2021-04-10 21:12 | RAD REPORT ---
EXAM DESCRIPTION: CTStone Protocol - 04/10/2021 8:44 pm CLINICAL HISTORY: FLANK PAIN COMPARISON: No comparisons TECHNIQUE: CT of the abdomen and pelvis was performed. All CT scans are performed using dose optimization technique as appropriate and may include automated exposure control or mA/KV adjustment according to patient size. FINDINGS: Lower chest: 3 mm pulmonary nodule left lower lobe is almost certainly benign. Liver: No acute abnormality or suspicious lesions. Biliary: Cholecystectomy. Stomach: No significant focal abnormality. Duodenum: No significant focal abnormality. Pancreas: No significant abnormality. Spleen: Splenectomy with splenosis. Adrenal: No suspicious lesions. Kidney/ureter: No hydronephrosis. Punctate right renal calculus. Nonspecific bilateral perinephric st randing. Retroperitoneum: No retroperitoneal adenopathy. Vascular: No aneurysm. Bowel: No significant focal abnormality. Moderate stool in the colon. Normal appendix. Peritoneum: Prior mesh ventral hernia repair. Small fat containing ventral hernias above the repair. Small fat containing inguinal hernias. Bladder: Grossly unremarkable. Reproductive: No adnexal masses. Bones: No acute fracture. Other: n/a IMPRESSION: No acute intra-abdominal or pelvic finding. Nonspecific bilateral perinephric stranding. No hydronephrosis or ureteral calculi. Nonobstructive right nephrolithiasis. Normal appendix. Modera te colonic stool burden which may indicate constipation.
[2021-04-10] MEDS ORDERED: MAGNESIUM SULFATE 1 gm IVPB 1 GM/100 ML BAG IV ONE (21:16)
[2021-04-10] MEDS ORDERED: INSULIN -REGULAR HUMAN 50 UNIT/0.5 ML ML ONE (21:47)
--- NOTE | 2021-04-10 22:46 | EDPHYS ---
Physician Documentation [facility] Name: Cedrick Rodriguez Age: 50 yrs Sex: Male : 1970 Arrival Date: 04/10/2021 Time: 18:08 Bed 14 Private MD: ED Physician Jg Pagan HPI: 04/10 20:13 This 50 yrs old Male presents to ER via Ambulatory with complaints of aby Headache, Neck and Upper Back Pain. 20:13 The patient complains of pain to the right occipital area and right base of the skull. aby The patient describes the headache as aching, intermittent. Onset: The symptoms/episode began/occurred 3 day(s) ago. Associated signs and symptoms: The patient has no apparent associated signs or symptoms. Severity of symptoms: At its worst the pain was moderate, in the emergency department the pain is unchanged. Headache History: The patient has had previous headaches and this one is different than previous episodes. The symptoms are alleviated by nothing. the symptoms are aggravated by nothing. The patient has not experienced similar symptoms in the past. Historical: - Allergies: 18:23 No Known Allergies; ld1 - Home Meds: 18:23 aspirin 81 mg oral tab [Active]; Glipizide Oral [Active]; Levemir subcutaneous ld1 [Active]; levothyroxine 100 mcg tab 1 tab once daily [Active]; lisinopril Oral [Active]; metformin 1,000 mg Oral tab 2 times per day [Active]; Januvia 25 mg oral tab [Active]; - PMHx: 18:23 Diabetes - IDDM; Diabetes - NIDDM; Enlarge liver; Hypothyroidism; kidney issues; ld1 Myocardial infarction; - PSHx: 18:23 None; ld1 - Immunization history:: Adult Immunizations not up to date, Client reports receiving the Brandt \T\ Brandt single-dose vaccine. - Social history:: Smoking status: Patient reports the use of cigarette tobacco products, smokes one pack cigarettes per day. Patient uses street drugs, Methamphetamine (Meth) Pt has a history of meth use. No longer uses meth., Patient/guardian denies using alcohol. - Family history:: not pertinent. ROS: 20:13 Constitutional: Negative for fever, chills, and weight loss, Eyes: Negative for injury, aby pain, redness, and discharge, ENT: Negative for injury, pain, and discharge, Cardiovascular: Negative for chest pain, palpitations, and edema, Respiratory: Negative for shortness of breath, cough, wheezing, and pleuritic chest pain, Abdomen/GI: Negative for abdominal pain, nausea, vomiting, diarrhea, and constipation, Back: Negative for injury and pain, : Negative for injury, bleeding, discharge, and swelling, MS/Extremity: Negative for injury and deformity, Skin: Negative for injury, rash, and discoloration, Psych: Negative for depression, anxiety, suicide ideation, homicidal ideation, and hallucinations, Allergy/Immunology: Negative for hives, rash, and allergies, Endocrine: Negative for neck swelling, polydipsia, polyuria, polyphagia, and marked weight changes, Hematologic/Lymphatic: Negative for swollen nodes, abnormal bleeding, and unusual bruising. 20:13 Neck: Positive for pain at rest. 20:13 Neuro: Positive for headache. Exam: 20:13 Constitutional: This is a well developed, well nourished patient who is awake, alert, aby and in no acute distress. Head/Face: Normocephalic, atraumatic. Eyes: Pupils equal round and reactive to light, extra-ocular motions intact. Lids and lashes normal. Conjunctiva and sclera are non-icteric and not injected. Cornea within normal limits. Periorbital areas with no swelling, redness, or edema. ENT: Nares patent. No nasal discharge, no septal abnormalities noted. Tympanic membranes are normal and external auditory canals are clear. Oropharynx with no redness, swelling, or masses, exudates, or evidence of obstruction, uvula midline. Mucous membranes moist. Neck: Trachea midline, no thyromegaly or masses palpated, and no cervical lymphadenopathy. Supple, full range of motion without nuchal rigidity, or vertebral point tenderness. No Meningismus. Chest/axilla: Normal chest wall appearance and motion. Nontender with no deformity. No lesions are appreciated. Cardiovascular: Regular rate and rhythm with a normal S1 and S2. No gallops, murmurs, or rubs. Normal PMI, no JVD. No pulse deficits. Respiratory: Lungs have equal breath sounds bilaterally, clear to auscultation and percussion. No rales, rhonchi or wheezes noted. No increased work of breathing, no retractions or nasal flaring. Abdomen/GI: Soft, non-tender, with normal bowel sounds. No distension or tympany. No guarding or rebound. No evidence of tenderness throughout. Back: No spinal tenderness. No costovertebral tenderness. Full range of motion. Skin: Warm, dry with normal turgor. Normal color with no rashes, no lesions, and no evidence of cellulitis. MS/ Extremity: Pulses equal, no cyanosis. Neurovascular intact. Full, normal range of motion. Neuro: Awake and alert, GCS 15, oriented to person, place, time, and situation. Cranial nerves II-XII grossly intact. Motor strength 5/5 in all extremities. Sensory grossly intact. Cerebellar exam normal. Normal gait. Psych: Awake, alert, with orientation to person, place and time. Behavior, mood, and affect are within normal limits. 20:13 Neck: C-spine: appears grossly normal, no acute changes, ROM/movement: is normal, no acute changes, Lymph nodes: no appreciated lymphadenopathy. 20:13 ECG was reviewed by the Attending Physician. Vital Signs: 18:21 BP 153 / 101; Pulse 93; Resp 20; Temp 97.5(TE); Pulse Ox 98% on R/A; Weight 99.79 kg; ld1 Height 5 ft. 9 in. (175.26 cm); Pain 8/10; 20:30 BP 124 / 98; Pulse 86; Resp 18; Pulse Ox 96% on R/A; Pain 8/10; dc2 21:30 BP 132 / 91; Pulse 87; Resp 16; Pulse Ox 98% on R/A; Pain 7/10; dc2 22:46 BP 140 / 80; Pulse 86; Resp 18; Temp 97.5; Pulse Ox 95% on R/A; Pain 3/10; dc2 18:21 Body Mass Index 32.49 (99.79 kg, 175.26 cm) ld1 Bladimir Coma Score: 20:16 Eye Response: spontaneous(4). Verbal Response: oriented(5). Motor Response: obeys aby commands(6). Total: 15. MDM: 19:29 Patient medically screened. aby 20:16 Differential diagnosis: hypertensive headache, intracerebral hemorrhage, migraine, aby otitis, tension headache, trigeminal neuralgia, vasomotor headache. Data reviewed: vital signs, nurses notes, lab test result(s), EKG, radiologic studies, CT scan, plain films. Data interpreted: monitor tech: rate is 93 beats/min, rhythm is regular, Pulse oximetry: on room air is 98 %. Test interpretation: by ED physician or midlevel provider: ECG, plain radiologic studies. Counseling: I had a detailed discussion with the patient and/or guardian regarding: the historical points, exam findings, and any diagnostic results supporting the discharge/admit diagnosis, lab results, radiology results. 04/10 19:31 Order name: Basic Metabolic Panel; Complete Time: 20:56 [facility] 04/10 19:31 Order name: CBC with Diff; Complete Time: 21:21 [facility] 04/10 19:31 Order name: LFT's; Complete Time: 20:56 [facility] 04/10 19:31 Order name: Magnesium; Complete Time: 20:56 [facility] 04/10 19:31 Order name: NT PRO-BNP; Complete Time: 20:56 [facility] 04/10 19:31 Order name: PT-INR; Complete Time: 20:56 [facility] 04/10 19:31 Order name: Troponin (emerg Dept Use Only); Complete Time: 20:56 [facility] 04/10 19:31 Order name: XRAY Chest (1 view); Complete Time: 20:56 [facility] 04/10 19:31 Order name: Lipase; Complete Time: 20:56 [facility] 04/10 19:31 Order name: Urine Culture [facility] 04/10 20:23 Order name: UDS; Complete Time: 22:58 [facility] 04/10 21:11 Order name: Manual Differential; Complete Time: 21:21 [facility] 04/10 21:26 Order name: Troponin (emerg Dept Use Only): 1030pm; Complete Time: 22:40 [facility] 04/10 22:53 Order name: Glucose, Ancillary Testing; Complete Time: 22:58 [facility] 04/10 19:31 Order name: EKG; Complete Time: 19:32 [facility] 04/10 19:31 Order name: Cardiac monitoring; Complete Time: 20:33 [facility] 04/10 19:31 Order name: EKG - Nurse/Tech; Complete Time: 20:33 [facility] 04/10 19:31 Order name: IV Saline Lock; Complete Time: 20:33 [facility] 04/10 19:31 Order name: Labs collected and sent; Complete Time: 20:33 [facility] 04/10 19:31 Order name: O2 Per Protocol; Complete Time: 20:33 [facility] 04/10 20:12 Order name: CT Head C Spine; Complete Time: 21: [facility] 04/10 20:13 Order name: CT Stone Protocol; Complete Time: 21: [facility] 04/10 19:31 Order name: O2 Sat Monitoring; Complete Time: 20:33 [facility] 04/10 19:31 Order name: Urine Dipstick-Ancillary (obtain specimen) [facility] 04/10 20:57 Order name: Bilateral blood pressure; Complete Time: 21:41 [facility] EC:13 Rate is 87 beats/min. Rhythm is regular. QRS Perkins is Normal. [place] interval is normal. QRS aby interval is normal. QT interval is normal. No Q waves. T waves are Normal. ST Segment is elevated in leads I, aVL, V5, V6. Clinical impression: NSR w/ Non-specific ST/T Changes. Interpreted by me. Reviewed by me. Administered Medications: 20:14 Drug: NS 0.9% 500 ml Route: IV; Rate: bolus; Site: right wrist; dc2 21:15 Follow up: IV Status: Completed infusion; IV Intake: 500ml dc2 20:18 Drug: Zofran (Ondansetron) 4 mg Route: IVP; Site: right wrist; dc2 21:00 Follow up: Response: Nausea is decreased dc2 20:20 Drug: morphine 2 mg Route: IVP; Site: right wrist; dc2 20:30 Drug: morphine 2 mg Route: IVP; Site: right wrist; dc2 21:42 Follow up: Response: Pain is decreased dc2 21:26 Drug: Magnesium Sulfate 1 grams Route: IVPB; Infused Over: 1 hrs; Site: right df1 antecubital; 22:34 Follow up: IV Status: Completed infusion; IV Intake: 100ml dc2 21:42 Drug: NS 0.9% 1000 ml Route: IV; Rate: 125 ml/hr; Site: right wrist; Delivery: Primary dc2 tubing; 22:45 Follow up: IV Status: Order to discontinue infusion; IV Intake: 200ml dc2 21:51 Drug: Insulin Regular Human 10 units {Co-Signature: cc4 (Abbi Story RN).} Route: dc2 IVP; Site: right wrist; 22:30 Follow up: Response: Blood sugar is lowered dc2 Disposition Summary: 04/10/21 22:45 Discharge Ordered Location: Home aby Problem: new aby Symptoms: have improved aby Condition: Stable aby Diagnosis - Type 1 diabetes mellitus with hyperglycemia aby - Hypomagnesemia aby - Headache aby - Essential (primary) hypertension aby Followup: aby - With: Private Physician - When: 2 - 3 days - Reason: Recheck today's complaints, Continuance of care, Re-evaluation by your physician Followup: aby - With: Allan Herrera MD - When: 2 - 3 days - Reason: Recheck today's complaints, Re-evaluation by your physician Discharge Instructions: - Discharge Summary Sheet aby - General Headache Without Cause aby - Hyperglycemia aby - Hypertension, Adult aby - Hypomagnesemia aby - Hypertension, Adult, [id number] aby - How to Take Your Blood Pressure, [id number] aby - Aspirin and Your Heart aby - General Headache Without Cause, Kolv-ls-Zowt aby - Managing Your Hypertension aby Forms: - Medication Reconciliation Form aby - Thank You Letter aby - Antibiotic Education aby - Prescription Opioid Use aby Prescriptions: - Fioricet with Codeine [id number] mg Oral capsule - take 1 capsule by ORAL route every 4 hours as needed not to exceed 6 capsules aby per 24hrs; 15 capsule; Refills: 0, Product Selection Permitted Signatures: Dispatcher [employer] EDMS Jg Pagan MD MD cha Dibbern, Lauren, RN RN ld1 Flaca Burton df1 Jana Mcnamara RN RN dc2 Abbi Story RN cc4 Corrections: (The following items were deleted from the chart) 20:18 19:32 Head Brain Wo Cont+CT.RAD.BRZ ordered. EDMS EDMS 20:23 19:32 Angio Aorta For Dissection+CT.RAD.BRZ ordered. EDMS EDMS
--- NOTE | 2021-04-10 22:46 | ER ---
Nurse's Notes [facility] Name: Cedrick Rodriguez Age: 50 yrs Sex: Male : 1970 Arrival Date: 04/10/2021 Time: 18:08 Bed 14 Private MD: Diagnosis: Type 1 diabetes mellitus with hyperglycemia;Hypomagnesemia;Headache;Essential (primary) hypertension Presentation: 04/10 18:21 Chief complaint: Patient states: "I never get headaches, the past three days the base ld1 of my skull has been hurting along with my neck and shoulders." Pt also reports DEANDRA flank pain X 3 days. Denies urinary concerns. Coronavirus screen: At this time, the client does not indicate any symptoms associated with coronavirus-19. Ebola Screen: No symptoms or risks identified at this time. Initial Sepsis Screen: Does the patient meet any 2 criteria? No. Patient's initial sepsis screen is negative. Does the patient have a suspected source of infection? No. Patient's initial sepsis screen is negative. Risk Assessment: Do you want to hurt yourself or someone else? Patient reports no desire to harm self or others. Onset of symptoms was April 10, 2021. 18:21 Method Of Arrival: Ambulatory ld1 18:21 Acuity: VICENTE 3 ld1 Triage Assessment: 18:23 Headache History: Denies prior headaches. General: Appears in no apparent distress. ld1 comfortable, Behavior is calm, cooperative, appropriate for age. Pain: Complains of pain in occipital area and base of the skull Pain does not radiate. Pain currently is 8 out of 10 on a pain scale. Quality of pain is described as dull, sharp, Pain began 2-3 days ago. Is continuous, Also complains of no other associated symptoms. EENT: No signs and/or symptoms were reported regarding the EENT system. Neuro: Level of Consciousness is awake, alert, obeys commands, Oriented to person, place, time, situation, Appropriate for age. Cardiovascular: Capillary refill < 3 seconds Patient's skin is warm and dry. Respiratory: Airway is patent Respiratory effort is even, unlabored, Respiratory pattern is regular, symmetrical. GI: Abdomen is round non-distended. Historical: - Allergies: 18:23 No Known Allergies; ld1 - Home Meds: 18:23 aspirin 81 mg oral tab [Active]; Glipizide Oral [Active]; Levemir subcutaneous ld1 [Active]; levothyroxine 100 mcg tab 1 tab once daily [Active]; lisinopril Oral [Active]; metformin 1,000 mg Oral tab 2 times per day [Active]; Januvia 25 mg oral tab [Active]; - PMHx: 18:23 Diabetes - IDDM; Diabetes - NIDDM; Enlarge liver; Hypothyroidism; kidney issues; ld1 Myocardial infarction; - PSHx: 18:23 None; ld1 - Immunization history:: Adult Immunizations not up to date, Client reports receiving the Brandt \\T\\ Brandt single-dose vaccine. - Social history:: Smoking status: Patient reports the use of cigarette tobacco products, smokes one pack cigarettes per day. Patient uses street drugs, Methamphetamine (Meth) Pt has a history of meth use. No longer uses meth., Patient/guardian denies using alcohol. - Family history:: not pertinent. Screenin:15 Abuse screen: Denies threats or abuse. Denies injuries from another. Nutritional jt3 screening: No deficits noted. Tuberculosis screening: No symptoms or risk factors identified. Never had TB. Fall Risk None identified. No fall in past 12 months (0 pts). Secondary diagnosis (15 points) ambulates with cane. No IV (0 pts). Ambulatory Aid- None/Bed Rest/Nurse Assist (0 pts). Gait- Normal/Bed Rest/Wheelchair (0 pts) Mental Status- Oriented to own ability (0 pts). Total Hanson Fall Scale indicates No Risk (0-24 pts). Assessment: 19:14 General: Appears in no apparent distress. obese, well groomed, well developed, Behavior jt3 is calm, cooperative. Pain: Complains of pain in back of head into ledft neck into left shoulder x several days. Neuro: No deficits noted. Level of Consciousness is awake, alert, obeys commands, Oriented to person, place, time, Reports headache. Cardiovascular: No deficits noted. Denies chest pain, shortness of breath. Respiratory: Airway is patent. GI: Abdomen is obese, Bowel sounds present X 4 quads. : No signs and/or symptoms were reported regarding the genitourinary system. Derm: No deficits noted. No signs and/or symptoms reported regarding the dermatologic system. Musculoskeletal: Pt ambulate with cane due to chronic back issues / herniated disc. Pt states has pain to back but reports this is the same chronic pain that he has had for years. 19:14 : No signs and/or symptoms were reported regarding the genitourinary system. Reports dc2 No problems with going to bathroom. Denies burning with urination, inability to void, incontinence, pain urinary frequency, urgency. 19:17 General: Pt reports former meth user , last use March 2020.. 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 dc2 Vital Signs: 18:21 BP 153 / 101; Pulse 93; Resp 20; Temp 97.5(TE); Pulse Ox 98% on R/A; Weight 99.79 kg; ld1 Height 5 ft. 9 in. (175.26 cm); Pain 8/10; 20:30 BP 124 / 98; Pulse 86; Resp 18; Pulse Ox 96% on R/A; Pain 8/10; dc2 21:30 BP 132 / 91; Pulse 87; Resp 16; Pulse Ox 98% on R/A; Pain 7/10; dc2 22:46 BP 140 / 80; Pulse 86; Resp 18; Temp 97.5; Pulse Ox 95% on R/A; Pain 3/10; dc2 18:21 Body Mass Index 32.49 (99.79 kg, 175.26 cm) ld1 Amboy Coma Score: 20:16 Eye Response: spontaneous(4). Verbal Response: oriented(5). Motor Response: obeys aby commands(6). Total: 15. ED Course: 18:08 Patient arrived in ED. as 18:23 Triage completed. ld1 18:23 Arm band placed on right wrist. ld1 19:14 Derick Mcleod, TOMÁS is Primary Nurse. jt3 19:15 Patient has correct armband on for positive identification. Placed in gown. Bed in low jt3 position. Call light in reach. Side rails up X 1. Pulse ox on. 19:20 No provider procedures requiring assistance completed. jt3 19:29 Jg Pagan MD is Attending Physician. aby 19:45 X-ray(s) taken. dc2 19:48 XRAY Chest (1 view) In Process Unspecified. EDMS 20:30 Inserted saline lock: 22 gauge in right wrist, using aseptic technique. Blood ds4 collected. Missed attempt(s): 22 gauge in left wrist. Bleeding controlled, band aid applied, catheter tip intact. 20:[address] via stretcher. dc2 20:33 Basic Metabolic Panel Sent. dc2 20:33 LFT's Sent. dc2 20:33 Magnesium Sent. dc2 20:33 NT PRO-BNP Sent. dc2 20:33 PT-INR Sent. dc2 20:33 Troponin (emerg Dept Use Only) Sent. dc2 20:44 CT Head C Spine In Process Unspecified. EDMS 20:44 CT Stone Protocol In Process Unspecified. EDMS 20:49 Notified ED physician of a critical lab result(s). Glucose of 418 Dr Pagan notified. bb 21:41 Troponin (emerg Dept Use Only): 1030pm Sent. dc2 22:45 Allan Herrera MD is Referral Physician. aby 22:55 IV discontinued, intact, bleeding controlled, No redness/swelling at site. Pressure dc2 dressing applied. Administered Medications: 20:14 Drug: NS 0.9% 500 ml Route: IV; Rate: bolus; Site: right wrist; dc2 21:15 Follow up: IV Status: Completed infusion; IV Intake: 500ml dc2 20:18 Drug: Zofran (Ondansetron) 4 mg Route: IVP; Site: right wrist; dc2 21:00 Follow up: Response: Nausea is decreased dc2 20:20 Drug: morphine 2 mg Route: IVP; Site: right wrist; dc2 20:30 Drug: morphine 2 mg Route: IVP; Site: right wrist; dc2 21:42 Follow up: Response: Pain is decreased dc2 21:26 Drug: Magnesium Sulfate 1 grams Route: IVPB; Infused Over: 1 hrs; Site: right df1 antecubital; 22:34 Follow up: IV Status: Completed infusion; IV Intake: 100ml dc2 21:42 Drug: NS 0.9% 1000 ml Route: IV; Rate: 125 ml/hr; Site: right wrist; Delivery: Primary dc2 tubing; 22:45 Follow up: IV Status: Order to discontinue infusion; IV Intake: 200ml dc2 21:51 Drug: Insulin Regular Human 10 units {Co-Signature: cc4 (Abbi Story RN).} Route: dc2 IVP; Site: right wrist; 22:30 Follow up: Response: Blood sugar is lowered dc2 Intake: 21:15 IV: 500ml; Total: 500ml. dc2 22:34 IV: 100ml; Total: 600ml. dc2 22:45 IV: 200ml; Total: 800ml. dc2 Outcome: 22:45 Discharge ordered by MD. badillo 22:55 Discharged to home ambulatory. dc2 22:55 Condition: stable 22:55 Condition: stable 22:55 Discharge instructions given to patient, Instructed on discharge instructions, Demonstrated understanding of instructions, follow-up care, medications, Prescriptions given X 1. 23:05 Patient left the ED. dc2 Signatures: Dispatcher [employer] EDMS Jg Pagan MD MD cha Martinez, Amelia as Ballard, Brenda, RN RN bb Graham Morse ds4 Yolanda Jacobson RN RN ld1 Flaca Burton df1 Jana Mcnamara RN RN dc2 Derick Mcleod RN RN jt3 Abbi Story RN cc4 Corrections: (The following items were deleted from the chart) 20:36 19:14 Musculoskeletal: Pt ambulate with cane due to chronic back issues / herniated dc2 disc. jt3
[2021-04-10 22:58] LABS: Barbiturates NEGATIVE (NEGATIVE); Benzodiazepines NEGATIVE (NEGATIVE); Cocaine NEGATIVE (NEGATIVE); METHAMPHETAM NEGATIVE (NEGATIVE); Methadone NEGATIVE (NEGATIVE); Opiates NEGATIVE (NEGATIVE); Phencyclidine NEGATIVE (NEGATIVE); THC Cannibis NEGATIVE (NEGATIVE)
[2021-04-10 23:23] VITALS: TEMP 97.5
[2021-04-10 23:25] VITALS: BP 140/80; O2SAT 95
== END 2021-04-10 23:05 | disposition home or self-care (01) ==
LOC: ER 18:07
DX: E10.65 Type 1 diabetes mellitus with hyperglycemia (principal); E83.42 Hypomagnesemia; I10 Essential (primary) hypertension; E03.9 Hypothyroidism, unspecified; I25.2 Old myocardial infarction; Z79.82 Long term (current) use of aspirin; Z79.4 Long term (current) use of insulin
CPT/HCPCS: 96365; 96361; 93005 ×2; 87088; 85025; 87086; 80048; 36415; 83735; 85610; 82947; 80076; 87077; 87186; 84484 ×2; 83690; 83880; 80307; 70450; 72125; 76377; 74176; 71045; 96375; 99284; J3475; J2270; J7040; J7030; J2405

== ENCOUNTER 2021-09-30 05:19 | Emergency (ER) | payer MEDICARE, OTHER ==
--- OUTSIDE RECORDS SUMMARY | 2021-09-30 05:22 | XMS REPORT | Continuity of Care Document ---
:1970 Author Organization [facility] t Address [address] [place] [address] Care Team Providers Name Role Phone Diane Kwok Attending Clinician Unavailable OW_T Attending Clinician Unavailable OWENS_T Admitting Clinician Unavailable Payers Payer Name Policy Type Policy Number Effective Date Expiration Date S [facility] [id number] 2020 (MEDICARE 00:00:00 REPLACEMENT HMO) Problems This patient has no known problems. Allergies, Adverse Reactions, Alerts This patient has no known allergies or adverse reactions. Medications This patient has no known medications. Procedures This patient has no known procedures. Encounters Start End Encounter Admission Attending Care Care Encounter Source Date/Time Date/Time Type Type Clinicians Facility Department ID 2021-09-08 Outpatient Nasra Kwok [facility] [id number] [facility] [address] 08:23:01 [id number] [facility] 2021-07-02 [facility] [id number] 14:32:22 [facility] 2021-07-02 [facility] [id number] [facility] 14:26:24 [id number] [facility] 2021-07-02 [facility] [id number] [facility] 13:39:22 [id number] [facility] 2021-06-19 2021-06-19 ambulatory [facility] [id number] [facility] 2021-06-01 2021-06-01 ambulatory [facility] [id number] [facility] 2021-05-23 2021-05-23 ambulatory [facility] [id number] [facility] 2021-04-25 2021-04-25 ambulatory [facility] [id number] [facility] 2021-04-18 2021-04-18 Outpatient [facility] [id number]:00:[id number] 2021-04-18 2021-04-18 ambulatory [facility] [id number] [facility] 2021-04-16 2021-04-16 ambulatory [facility] [id number] [facility] 2021-02-21 2021-02-21 Outpatient [facility] [id number] [facility] 2021-01-26 2021-01-26 Outpatient [facility] [id number] [facility] 2021-01-23 2021-01-23 Outpatient [facility] [id number] [facility] 2021-01-21 2021-01-21 Outpatient [facility] [id number] [facility] 2020-12-10 2020-12-10 Outpatient [facility] [id number] [facility] 11:37:00 11:37:00 [id number] 2020-10-18 2020-10-18 [facility] [id number] [facility]:00:00 08:00:00 [id number] 2020-09-21 2020-09-21 [facility] [id number] [facility] 06:01:00 06:01:00 [id number] 2020-09-16 2020-09-16 Outpatient [facility] [id number] [facility]:00:00 08:00:00 [id number] Results This patient has no known results.
[2021-09-30] MEDS ORDERED: D5 0.45 NS 1,000 ML IV ONE (05:47)
[2021-09-30 06:06] LABS: Absolute Lymphocytes (CBC) 3.6 K/uL (0.7-4.9); Hematocrit 48.1 % (39.6-49.0); Lymphocytes % 29.2 % (15.3-44.8); MPV 8.7 fL (7.6-11.3); RBC Red Blood Cell Count 5.41 M/uL (4.33-5.43)
[2021-09-30 06:32] LABS: Albumin 3.8 g/dL (3.4-5.0); Bilirubin Total 0.3 mg/dL (0.2-1.0); Potassium 3.8 mmol/L (3.5-5.1); Troponin High Sensitivity 10.7 pg/mL (<58.9)
--- NOTE | 2021-09-30 06:36 | EDPHYS ---
Physician Documentation [facility] Name: Cedrick Rodriguez Age: 51 yrs Sex: Male : 1970 Arrival Date: 09/30/2021 Time: 05:23 Bed 6 Private MD: ERIN Physician Jg Pagan HPI: 09/30 05:39 This 51 yrs old Male presents to ER via Ambulatory with complaints of Low aby Blood Sugar. 05:39 The patient or guardian reports hypoglycemia, that was potentially precipitated by aby taking meds. Onset: The symptoms/episode began/occurred just prior to arrival. Associated signs and symptoms: Pertinent positives: diaphoresis. Current symptoms: In the emergency department the patient's symptoms have improved, moderately. The patient has experienced similar episodes in the past, a few times. Historical: - Allergies: 05:36 No Known Allergies; as6 - Home Meds: 05:36 aspirin 81 mg Oral tab 1 tab once daily [Active]; Glipizide Oral [Active]; Levemir as6 subcutaneous [Active]; levothyroxine 100 mcg tab 1 tab once daily [Active]; lisinopril Oral [Active]; metformin 1,000 mg Oral tab 2 times per day [Active]; - PMHx: 05:36 Diabetes - IDDM; Diabetes - NIDDM; Enlarge liver; Hypothyroidism; kidney issues; as6 Myocardial infarction; - PSHx: 05:36 Cholecystectomy; Splenectomy; Repair of inguinal hernia; as6 - Immunization history:: Client reports receiving the 2nd dose of the Covid vaccine, Client reports receiving the Brandt \T\ Brandt single-dose vaccine. - Social history:: Smoking status: Patient reports the use of cigarette tobacco products, smokes one pack cigarettes per day. ROS: 05:40 Constitutional: Negative for fever, chills, and weight loss, Eyes: Negative for injury, aby pain, redness, and discharge, ENT: Negative for injury, pain, and discharge, Neck: Negative for injury, pain, and swelling, Cardiovascular: Negative for chest pain, palpitations, and edema, Respiratory: Negative for shortness of breath, cough, wheezing, and pleuritic chest pain, Abdomen/GI: Negative for abdominal pain, nausea, vomiting, diarrhea, and constipation, Back: Negative for injury and pain, : Negative for injury, bleeding, discharge, and swelling, MS/Extremity: Negative for injury and deformity, Neuro: Negative for headache, weakness, numbness, tingling, and seizure, Psych: Negative for depression, anxiety, suicide ideation, homicidal ideation, and hallucinations, Allergy/Immunology: Negative for hives, rash, and allergies. 05:40 Skin: Positive for diaphoresis. 05:40 Neuro: Positive for weakness. Exam: 05:42 Constitutional: This is a well developed, well nourished patient who is awake, alert, aby and in no acute distress. Head/Face: Normocephalic, atraumatic. Eyes: Pupils equal round and reactive to light, extra-ocular motions intact. Lids and lashes normal. Conjunctiva and sclera are non-icteric and not injected. Cornea within normal limits. Periorbital areas with no swelling, redness, or edema. ENT: Nares patent. No nasal discharge, no septal abnormalities noted. Tympanic membranes are normal and external auditory canals are clear. Oropharynx with no redness, swelling, or masses, exudates, or evidence of obstruction, uvula midline. Mucous membranes moist. Neck: Trachea midline, no thyromegaly or masses palpated, and no cervical lymphadenopathy. Supple, full range of motion without nuchal rigidity, or vertebral point tenderness. No Meningismus. Chest/axilla: Normal chest wall appearance and motion. Nontender with no deformity. No lesions are appreciated. Cardiovascular: Regular rate and rhythm with a normal S1 and S2. No gallops, murmurs, or rubs. Normal PMI, no JVD. No pulse deficits. Respiratory: Lungs have equal breath sounds bilaterally, clear to auscultation and percussion. No rales, rhonchi or wheezes noted. No increased work of breathing, no retractions or nasal flaring. Abdomen/GI: Soft, non-tender, with normal bowel sounds. No distension or tympany. No guarding or rebound. No evidence of tenderness throughout. Back: No spinal tenderness. No costovertebral tenderness. Full range of motion. Male : Normal genitalia with no discharge or lesions. Skin: Warm, dry with normal turgor. Normal color with no rashes, no lesions, and no evidence of cellulitis. MS/ Extremity: Pulses equal, no cyanosis. Neurovascular intact. Full, normal range of motion. Neuro: Awake and alert, GCS 15, oriented to person, place, time, and situation. Cranial nerves II-XII grossly intact. Motor strength 5/5 in all extremities. Sensory grossly intact. Cerebellar exam normal. Normal gait. Psych: Awake, alert, with orientation to person, place and time. Behavior, mood, and affect are within normal limits. 06:26 ECG was reviewed by the Attending Physician. aby Vital Signs: 05:29 BP 142 / 85; Pulse 87; Resp 18 S; Temp 97.7(O); Pulse Ox 98% on R/A; Weight 102.06 kg as6 (R); Height 5 ft. 9 in. (175.26 cm) (R); Pain 0/10; 06:27 BP 123 / 70; Pulse 91; Resp 20 S; Pulse Ox 99% on R/A; as6 06:59 BP 122 / 66; Pulse 84; Resp 18 S; Pulse Ox 100% on R/A; as6 05:29 Body Mass Index 33.23 (102.06 kg, 175.26 cm) as6 MDM: 05:27 Patient medically screened. aby 05:41 Differential diagnosis: DKA, hyperglycemia, hypoglycemic episode. Differential aby Diagnosis altered mental status. Data reviewed: vital signs, nurses notes, lab test result(s), EKG. Data interpreted: monitor technician: rate is 87 beats/min, rhythm is regular, Pulse oximetry: on room air is 98 %. Test interpretation: by ED physician or midlevel provider: ECG, plain radiologic studies. Counseling: I had a detailed discussion with the patient and/or guardian regarding: the historical points, exam findings, and any diagnostic results supporting the discharge/admit diagnosis, lab results, radiology results, the need for outpatient follow up, for definitive care, a family practitioner. 09/30 05:37 Order name: CBC with Diff; Complete Time: 06:22 aby 09/30 05:37 Order name: Comprehensive Metabolic Panel; Complete Time: 06:34 aby 09/30 05:37 Order name: Diet Regular; Complete Time: 05:38 aby 09/30 05:37 Order name: Troponin High Sensitivity; Complete Time: 06:34 aby 09/30 05:52 Order name: Glucose, Ancillary Testing; Complete Time: 06:22 [facility] 09/30 05:37 Order name: EKG; Complete Time: 05:38 aby 09/30 05:37 Order name: EKG - Nurse/Tech; Complete Time: 06:01 [facility] 09/30 06:36 Order name: PO challenge: juice; Complete Time: 06:49 [facility] EC:26 Rate is 85 beats/min. Rhythm is regular. QRS [place] is Normal. [place] interval is normal. QRS aby interval is normal. QT interval is normal. No Q waves. T waves are Normal. No ST changes noted. Clinical impression: NSR w/ Non-specific ST/T Changes and No evidence of ischemia. Interpreted by me. Reviewed by me. Administered Medications: :56 Drug: D5-/ NS 1000 ml Route: IV; Rate: 125 ml/hr; Site: left forearm; as6 07:09 Follow up: Response: No adverse reaction; IV Status: Order to discontinue infusion; IV as6 Intake: 150ml Disposition Summary: 09/30/21 06:36 Discharge Ordered Location: Home aby Problem: new ayb Symptoms: have improved aby Condition: Stable aby Diagnosis - Type 1 diabetes mellitus with hypoglycemia aby - Type 1 diabetes mellitus with hypoglycemia without coma aby Followup: aby - With: Private Physician - When: 2 - 3 days - Reason: Recheck today's complaints, Continuance of care, Re-evaluation by your physician Discharge Instructions: - Discharge Summary Sheet aby - Hypoglycemia aby - Diabetes Mellitus and Nutrition, Adult aby - Hypoglycemia, [id number] aby - Type 1 Diabetes Mellitus, Self Care, Adult aby - Preventing Hypoglycemia aby Forms: - Medication Reconciliation Form aby - Thank You Letter aby - Antibiotic Education aby - Prescription Opioid Use aby Signatures: Dispatcher [employer] Jg Lazo MD MD cha Slawson, Ashby, RN RN as6
--- NOTE | 2021-09-30 06:36 | ER ---
Nurse's Notes [facility] Name: Cedrick Rodriguez Age: 51 yrs Sex: Male : 1970 Arrival Date: 09/30/2021 Time: 05:23 Bed 6 Private MD: Diagnosis: Type 1 diabetes mellitus with hypoglycemia;Type 1 diabetes mellitus with hypoglycemia without coma Presentation: 09/30 05:29 Chief complaint: Patient states: pt woke up this morning shaky, dizzy, felt like he was as6 going to pass out. pt check blood sugar and reading was "low". Coronavirus screen: At this time, the client does not indicate any symptoms associated with coronavirus-19. Ebola Screen: No symptoms or risks identified at this time. Initial Sepsis Screen: Does the patient meet any 2 criteria? No. Patient's initial sepsis screen is negative. Does the patient have a suspected source of infection? No. Patient's initial sepsis screen is negative. Risk Assessment: Do you want to hurt yourself or someone else? Patient reports no desire to harm self or others. Onset of symptoms was September 30, 2021. 05:29 Method Of Arrival: Ambulatory as6 05:29 Acuity: VICENTE 3 as6 Historical: - Allergies: 05:36 No Known Allergies; as6 - Home Meds: 05:36 aspirin 81 mg Oral tab 1 tab once daily [Active]; Glipizide Oral [Active]; Levemir as6 subcutaneous [Active]; levothyroxine 100 mcg tab 1 tab once daily [Active]; lisinopril Oral [Active]; metformin 1,000 mg Oral tab 2 times per day [Active]; - PMHx: 05:36 Diabetes - IDDM; Diabetes - NIDDM; Enlarge liver; Hypothyroidism; kidney issues; as6 Myocardial infarction; - PSHx: 05:36 Cholecystectomy; Splenectomy; Repair of inguinal hernia; as6 - Immunization history:: Client reports receiving the 2nd dose of the Covid vaccine, Client reports receiving the Brandt \\T\\ Brandt single-dose vaccine. - Social history:: Smoking status: Patient reports the use of cigarette tobacco products, smokes one pack cigarettes per day. Screenin:39 Abuse screen: Denies threats or abuse. Denies injuries from another. Nutritional as6 screening: No deficits noted. Tuberculosis screening: No symptoms or risk factors identified. Fall Risk None identified. Assessment: 05:57 General: Appears in no apparent distress. Behavior is cooperative, anxious. Pain: as6 Denies pain. Neuro: Level of Consciousness is awake, alert, obeys commands, Oriented to person, place, time, situation, Reports dizziness, weakness. Cardiovascular: JVD is absent Patient's skin is warm and dry. Respiratory: Respiratory effort is even, unlabored, Respiratory pattern is regular, symmetrical. Vital Signs: 05:29 BP 142 / 85; Pulse 87; Resp 18 S; Temp 97.7(O); Pulse Ox 98% on R/A; Weight 102.06 kg as6 (R); Height 5 ft. 9 in. (175.26 cm) (R); Pain 0/10; 06:27 BP 123 / 70; Pulse 91; Resp 20 S; Pulse Ox 99% on R/A; as6 06:59 BP 122 / 66; Pulse 84; Resp 18 S; Pulse Ox 100% on R/A; as6 05:29 Body Mass Index 33.23 (102.06 kg, 175.26 cm) as6 ED Course: 05:23 Patient arrived in ED. bp1 05:27 Glenn Lee, RN is Primary Nurse. as6 05:27 Jg Pagan MD is Attending Physician. aby 05:36 Triage completed. as6 05:39 Arm band placed on. as6 05:39 Bed in low position. Call light in reach. Side rails up X2. Pulse ox on. NIBP on. as6 05:50 Inserted saline lock: 20 gauge in left forearm, using aseptic technique. Blood as6 collected. 05:56 CBC with Diff Sent. as6 05:56 Comprehensive Metabolic Panel Sent. as6 05:56 Troponin High Sensitivity Sent. as6 06:30 Warm blanket given. Diet tray given. as6 07:10 No provider procedures requiring assistance completed. IV discontinued, intact, as6 bleeding controlled, No redness/swelling at site. Pressure dressing applied. Administered Medications: 05:56 Drug: D5-1/2 NS 1000 ml Route: IV; Rate: 125 ml/hr; Site: left forearm; as6 07:09 Follow up: Response: No adverse reaction; IV Status: Order to discontinue infusion; IV as6 Intake: 150ml Intake: 07:09 IV: 150ml; Total: 150ml. as6 Outcome: 06:36 Discharge ordered by MD. badillo 07:10 Discharged to home ambulatory. as6 07:10 Condition: stable 07:10 Condition: stable 07:10 Discharge instructions given to patient, Instructed on discharge instructions, follow up and referral plans. Demonstrated understanding of instructions, follow-up care. 07:10 Patient left the ED. as6 Signatures: Jg Pagan MD MD cha [place], Brittany bp1 Slawson, Ashby, RN RN as6
[2021-09-30 07:29] VITALS: TEMP 97.7
[2021-09-30 07:31] VITALS: BP 122/66; O2SAT 100
--- NOTE | 2021-09-30 09:32 | EKG ---
Test Date: 2021-09-30 Test Time: 05:58:30 [place] Operator: SHARA MEASUREMENT RESULTS: Intervals: Rate: 85 NE: 170 QRSD: 86 QT: 380 QTc: 452 [place]: P: 57 NE: 170 QRS: -8 T: 93 INTERPRETIVE STATEMENTS: Normal sinus rhythm Possible Anterior infarct, age undetermined Abnormal ECG Compared to ECG 04/10/2021 20:04:24 Left-axis deviation no longer present Myocardial infarct finding still present Electronically Signed On 09-30-21 09:31:40 CDT by Allan Herrera
== END 2021-09-30 07:10 | disposition home or self-care (01) ==
LOC: ER 05:19
DX: E10.649 Type 1 diabetes mellitus with hypoglycemia without coma (principal); E03.9 Hypothyroidism, unspecified; I25.2 Old myocardial infarction; F17.210 Nicotine dependence, cigarettes, uncomplicated; Z79.82 Long term (current) use of aspirin; Z79.4 Long term (current) use of insulin
CPT/HCPCS: 93005; 85025; 36415; 82947 ×2; 84484; 80053; J7799; 96360; 99284

== ENCOUNTER 2022-04-22 22:50 | Emergency (ER) | payer MEDICARE, OTHER ==
--- OUTSIDE RECORDS SUMMARY | 2022-04-22 22:54 | XMS REPORT | Continuity of Care Document ---
:1970 Author Organization [facility] t Address [address] [place] [address] Care Team Providers Name Role Phone KwokNasra Attending Clinician Unavailable OWENS_T Attending Clinician Unavailable OWENS_T Admitting Clinician Unavailable Payers Payer Name Policy Type Policy Effective Date Expiration Date Sour ce Number [place] [id number] Common [facility] rit [address]5 2020 (MEDICARE 00:00:00 REPLACEMENT O) [place] [id number] [facility] [place] [id number] [facility] [place] [id number] [facility] [place] [id number] [facility] [place] [id number] [facility] [place] [id number] Common [facility] rit [facility] Problems Condition Condition Condition Status Onset Resolution Last Treating Co mments Source Name Details Category Date Date Treatment Clinician Date [id number] Cervicalgi Problem C ommon 107 a [facility] [id number] Other Problem Common chronic Spirit pain [facility] [id number] Fibromyalg Problem Co mmon ia [facility] Standard Abnormal Problem Commo n chest chest xray [facility] X-ray - [facility] abnormal [facility] [id number] Mixed Problem Common hyperlipid Spirit emia - [facility] [id number] Acquired Problem Comm on hypothyroi Spirit dism - [facility] Smoker Smoker Problem Common [facility] - [facility] [id number] halfway Problem Com mon (current) Spirit use of - [facility] insulin [facility] [id number] Type 2 Problem Common diabetes Spirit mellitus - [facility] without complicati [facility] [id number] Type 2 Problem Common diabetes Spirit mellitus - [facility] with [facility] hyperglyce [facility] [id number] Gastroesop Problem Co mmon hageal [facility] s present [id number] Allergic Problem Commo n rhinitis, Spirit unspecifie - [facility] d [facility] seasonalit [facility] y, Medical unspecifie Center d trigger Allergies, Adverse Reactions, Alerts This patient has no known allergies or adverse reactions. Social History Social Habit Start Date Stop Date Quantity Comments Source History of Tobacco Current Smoker Co mmon [facility] - [facility] Use [facility] Medic al [place] Sex Assigned At Com mon [facility] - [facility] Smoking Status Start Date Stop Date Source Current Smoker 2022-01-02 00:00:00 Common Spiri t - [facility] Medications Ordered Filled Start Stop Current Ordering Indication Dosage Frequency Signature Comments Components Source Medication Medication Date Date Medication? Clinician (SIG) Name Name Insulin Insulin 2021-06 No TID Insulin Syringe-Nee Syringe-Nee 0-18 Syringe-Ne dle U-100 dle U-100 00:00: edle U-100 31G X 5/16" 31G X 5/16" 00 31G X 1 ML 1 ML 5/16" 1 ML Insulin Insulin 2021-06 No TID Insulin Syringe-Nee Syringe-Nee 0-18 Syringe-Ne dle U-100 dle U-100 00:00: edle U-100 31G X 5/16" 31G X 5/16" 00 31G X 1 ML 1 ML 5/16" 1 ML Insulin Insulin 2021-06 No TID Insulin Syringe-Nee Syringe-Nee 0-18 Syringe-Ne dle U-100 dle U-100 00:00: edle U-100 31G X 5/16" 31G X 5/16" 00 31G X 1 ML 1 ML 5/16" 1 ML Dexcom G6 Dexcom G6 2-0 No QD Dexcom G6 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 - 00:00: 00 Dexcom G6 Dexcom G6 2-0 No QD Dexcom G6 Transmitter Transmitter 6-20 Transmitte - - 00:00: r - 00 Dexcom G6 Dexcom G6 2-0 No Dexcom G6 Sensor - Sensor - 6-20 Sensor - 00:00: 00 Dexcom G6 Dexcom G6 2-0 No QD Dexcom G6 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 - 00:00: 00 Dexcom G6 Dexcom G6 2-0 No Dexcom G6 Transmitter Transmitter 6-20 Transmitte - - 00:00: r - 00 Dexcom G6 Dexcom G6 2-0 No Dexcom G6 Sensor - Sensor - 6-20 Sensor - 00:00: 00 Dexcom G6 Dexcom G6 2-0 No QD Dexcom G6 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 - 00:00: 00 Dexcom G6 Dexcom G6 2-0 No Dexcom G6 Transmitter Transmitter 6-20 Transmitte - - 00:00: r - 00 Dexcom G6 Dexcom G6 2-0 No Dexcom G6 Sensor - Sensor - 6-20 Sensor - 00:00: 00 Dexcom G6 Dexcom G6 2-0 No QD Dexcom G6 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 - 00:00: 00 Dexcom G6 Dexcom G6 2-0 No Dexcom G6 Transmitter Transmitter 6-20 Transmitte - - 00:00: r - 00 Dexcom G6 Dexcom G6 2-0 No Dexcom G6 Sensor - Sensor - 6-20 Sensor - 00:00: 00 Dexcom G6 Dexcom G6 2-0 No QD Dexcom G6 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 - 00:00: 00 Dexcom G6 Dexcom G6 2-0 No Dexcom G6 Sensor - Sensor - 6-20 Sensor - 00:00: 00 Dexcom G6 Dexcom G6 2-0 No QD Dexcom G6 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 - 00:00: 00 Dexcom G6 Dexcom G6 2-0 No QD Dexcom G6 Transmitter Transmitter 6-20 Transmitte - - 00:00: r - 00 Dexcom G6 Dexcom G6 2022-0 No QD Dexcom G6 Transmitter Transmitter 6-20 Transmitte - - 00:00: r - 00 Dexcom G6 Dexcom G6 2021-0 No Dexcom G6 Sensor - Sensor - 6-20 Sensor - 00:00: 00 metFORMIN metFORMIN 2020- No 1{table BID metFORMIN HCl 1000 MG HCl 1000 MG -19 t_with_ HCl 1000 00:00: a_meal} MG 00 [facility] 2020-06 No BD Ultra-Fine Ultra-Fine 1-19 Ultra-Fine Daylin Pen Daylin Pen 00:00: [place] Pen [place] 4mm [place] 4mm 00 [place] x 32Gm x 32Gm 4mm x 32Gm metFORMIN metFORMIN 2020-06 No 1{table BID metFORMIN HCl 1000 MG HCl 1000 MG -19 t_with_ HCl 1000 00:00: a_meal} MG 00 [facility] 2020-06 No BD Ultra-Fine Ultra-Fine 1-19 Ultra-Fine Daylin Pen Daylin Pen 00:00: Daylin Pen [place] 4mm [place] 4mm 00 [place] x 32Gm x 32Gm 4mm x 32Gm [facility] 2020-06 No BD Ultra-Fine Ultra-Fine 1-19 Ultra-Fine [place] Pen Daylin Pen 00:00: [place] Pen [place] 4mm [place] 4mm 00 [place] x 32Gm x 32Gm 4mm x 32Gm metFORMIN metFORMIN 2020- No 1{table BID metFORMIN HCl 1000 MG HCl 1000 MG -19 t_with_ HCl 1000 00:00: a_meal} MG 00 [facility] 2020-06 No BD Ultra-Fine Ultra-Fine 1-19 Ultra-Fine Day[place] Pen Daylin Pen 00:00: [place] Pen [place] 4mm [place] 4mm 00 [place] x 32Gm x 32Gm 4mm x 32Gm metFORMIN metFORMIN 2020- No 1{table BID metFORMIN HCl 1000 MG HCl 1000 MG -19 t_with_ HCl 1000 00:00: a_meal} MG 00 [facility] 2020-06 No BD Ultra-Fine Ultra-Fine 1-19 Ultra-Fine Daylin Pen Daylin Pen 00:00: [place] Pen [place] 4mm [place] 4mm 00 [place] x 32Gm x 32Gm 4mm x 32Gm metFORMIN metFORMIN 2020-06 No 1{table BID metFORMIN HCl 1000 MG HCl 1000 MG 1-19 t_with_ HCl 1000 00:00: a_meal} MG 00 [facility] 2020-06 No BD Ultra-Fine Ultra-Fine 1-19 Ultra-Fine Daylin Pen Daylin Pen 00:00: [place]lin Pen [place] 4mm [place] 4mm 00 [place] x 32Gm x 32Gm 4mm x 32Gm BD 2020-06 No BD Ultra-Fine Ultra-Fine 1-19 Ultra-Fine Daylin Pen Daylin Pen 00:00: [place] Pen [place] 4mm [place] 4mm 00 [place] x 32Gm x 32Gm 4mm x 32Gm BD 2020-06 No BD Ultra-Fine Ultra-Fine 1-19 Ultra-Fine Daylin Pen Daylin Pen 00:00: [place] Pen [place] 4mm [place] 4mm 00 [place] x 32Gm x 32Gm 4mm x 32Gm BD 2020-06 No BD Ultra-Fine Ultra-Fine 1-19 Ultra-Fine Daylin Pen Daylin Pen 00:00: [place] Pen [place] 4mm [place] 4mm 00 [place] x 32Gm x 32Gm 4mm x 32Gm BD 2020-06 No QD BD Ultra-Fine Ultra-Fine 1-19 Ultra-Fine Daylin Pen Daylin Pen 00:00: [place] Pen [place] 4mm [place] 4mm 00 [place] x 32Gm x 32Gm 4mm x 32Gm BD 2020-06 No QD BD Ultra-Fine Ultra-Fine 1-19 Ultra-Fine Daylin Pen Daylin Pen 00:00: [place] Pen [place] 4mm [place] 4mm 00 [place] x 32Gm x 32Gm 4mm x 32Gm BD 2020-06 No QD BD Ultra-Fine Ultra-Fine 1-19 Ultra-Fine Daylin Pen Daylin Pen 00:00: [place] Pen [place] 4mm [place] 4mm 00 [place] x 32Gm x 32Gm 4mm x 32Gm Flonase 50 Flonase 50 No 2{spray QD Flonase 50 MCG/ACT MCG/ACT 02-21 _in_eac MCG/ACT 00:00: h_nostr 00 il} Pantoprazol Pantoprazol No 1{table QD Pantoprazo e Sodium 40 e Sodium 40 9-17 t} le Sodium MG MG 00:00: 40 MG 00 Pantoprazol Pantoprazol No 1{table QD Pantoprazo e Sodium 40 e Sodium 40 9-17 t} le Sodium MG MG 00:00: 40 MG 00 Flonase 50 Flonase 50 No 2{spray QD Flonase 50 MCG/ACT MCG/ACT 02-21 _in_eac MCG/ACT 00:00: h_nostr 00 il} Pantoprazol Pantoprazol No 1{table QD Pantoprazo e Sodium 40 e Sodium 40 9-17 t} le Sodium MG MG 00:00: 40 MG 00 Flonase 50 Flonase 50 No 2{spray QD Flonase 50 MCG/ACT MCG/ACT 917 _in_eac MCG/ACT 00:00: h_nostr 00 il} Flonase 50 Flonase 50 No 2{spray QD Flonase 50 MCG/ACT MCG/ACT 917 _in_eac MCG/ACT 00:00: h_nostr 00 il} Pantoprazol Pantoprazol No 1{table QD Pantoprazo e Sodium 40 e Sodium 40 9-17 t} le Sodium MG MG 00:00: 40 MG 00 Levemir Levemir 2021- No QD Levemir FlexTouch FlexTouch 02-04-26 FlexTouch 00:00: 00:00 00 :00 Lisinopril Lisinopril No 1{table QD Lisinopril 2.5 MG 2.5 MG t} 2.5 MG NovoLIN NovoLIN No NovoLIN 70/30 70/30 70/30 (70-30) 100 (70-30) 100 (70-30) UNIT/ML UNIT/ML 100 UNIT/ML Levemir Levemir No QD Levemir FlexTouch FlexTouch FlexTouch Lipitor 40 Lipitor 40 No 1{table QD Lipitor 40 MG MG t} MG Glimepiride Glimepiride No Glimepirid 4 MG 4 MG e 4 MG Levemir Levemir No QD Levemir Flex Flex Flex Auto-Inject Auto-Inject Auto-Injec or Pen or Pen tor Pen [place] Levothyroxi Levothyroxi No QD Levothyrox ne Sodium ne Sodium ine Sodium 100MCG 100MCG 100MCG metFORMIN metFORMIN No metFORMIN HCl ER HCl ER HCl ER (MOD) 1000 (MOD) 1000 (MOD) 1000 MG MG MG Januvia 25 Januvia 25 No Januvia 25 MG MG MG Lisinopril Lisinopril No 1{table QD Lisinopril 2.5 MG 2.5 MG t} 2.5 MG NovoLIN NovoLIN No NovoLIN 70/30 70/30 70/30 (70-30) 100 (70-30) 100 (70-30) UNIT/ML UNIT/ML 100 UNIT/ML Levemir Levemir No QD Levemir FlexTouch FlexTouch FlexTouch Lipitor 40 Lipitor 40 No 1{table QD Lipitor 40 MG MG t} MG Glimepiride Glimepiride No Glimepirid 4 MG 4 MG e 4 MG Levemir Levemir No QD Levemir Flex Flex Flex Auto-Inject Auto-Inject Auto-Injec or Pen or Pen tor Pen [place] Levothyroxi Levothyroxi No QD Levothyrox ne Sodium ne Sodium ine Sodium 100MCG 100MCG 100MCG Lisinopril Lisinopril No 1{table QD Lisinopril 2.5 MG 2.5 MG t} 2.5 MG Glimepiride Glimepiride No Glimepirid 4 MG 4 MG e 4 MG Levemir Levemir No QD Levemir Flex Flex Flex Auto-Inject Auto-Inject Auto-Injec or Pen or Pen tor Pen [place] Lipitor 40 Lipitor 40 No 1{table QD Lipitor 40 MG MG t} MG metFORMIN metFORMIN No BID metFORMIN HCl ER HCl ER HCl ER (MOD) 1000 (MOD) 1000 (MOD) 1000 MG MG MG Januvia 25 Januvia 25 No 1{table QD Januvia 25 MG MG t} MG Levemir Levemir No QD Levemir FlexTouch FlexTouch FlexTouch Levothyroxi Levothyroxi No QD Levothyrox ne Sodium ne Sodium ine Sodium 100MCG 100MCG 100MCG NovoLIN NovoLIN No NovoLIN 70/30 70/30 70/30 (70-30) 100 (70-30) 100 (70-30) UNIT/ML UNIT/ML 100 UNIT/ML Lisinopril Lisinopril No 1{table QD Lisinopril 2.5 MG 2.5 MG t} 2.5 MG Glimepiride Glimepiride No Glimepirid 4 MG 4 MG e 4 MG Levemir Levemir No QD Levemir Flex Flex Flex Auto-Inject Auto-Inject Auto-Injec or Pen or Pen tor Pen [place] Lipitor 40 Lipitor 40 No 1{table QD Lipitor 40 MG MG t} MG metFORMIN metFORMIN No BID metFORMIN HCl ER HCl ER HCl ER (MOD) 1000 (MOD) 1000 (MOD) 1000 MG MG MG Januvia 25 Januvia 25 No 1{table QD Januvia 25 MG MG t} MG Levemir Levemir No QD Levemir FlexTouch FlexTouch FlexTouch Levothyroxi Levothyroxi No QD Levothyrox ne Sodium ne Sodium ine Sodium 100MCG 100MCG 100MCG NovoLIN NovoLIN No NovoLIN 70/30 70/30 70/30 (70-30) 100 (70-30) 100 (70-30) UNIT/ML UNIT/ML 100 UNIT/ML Pantoprazol Pantoprazol No 1{table QD Pantoprazo e Sodium 40 e Sodium 40 t} le Sodium MG MG 40 MG Levothyroxi Levothyroxi No QD Levothyrox ne Sodium ne Sodium ine Sodium 150 MCG 150 MCG 150 MCG Levemir Levemir No QD Levemir Flex Flex Flex Auto-Inject Auto-Inject Auto-Injec or Pen or Pen tor Pen [place] NovoLIN NovoLIN No NovoLIN 70/30 70/30 70/30 (70-30) 100 (70-30) 100 (70-30) UNIT/ML UNIT/ML 100 UNIT/ML Lisinopril Lisinopril No 1{table QD Lisinopril 2.5 MG 2.5 MG t} 2.5 MG Flonase 50 Flonase 50 No 2{spray QD Flonase 50 MCG/ACT MCG/ACT _in_eac MCG/ACT h_nostr il} Januvia 25 Januvia 25 No Januvia 25 MG MG MG metFORMIN metFORMIN No metFORMIN HCl ER HCl ER HCl ER (MOD) 1000 (MOD) 1000 (MOD) 1000 MG MG MG Levemir Levemir No QD Levemir FlexTouch FlexTouch FlexTouch Glimepiride Glimepiride No Glimepirid 4 MG 4 MG e 4 MG Lipitor 40 Lipitor 40 No 1{table QD Lipitor 40 MG MG t} MG Pantoprazol Pantoprazol No 1{table QD Pantoprazo e Sodium 40 e Sodium 40 t} le Sodium MG MG 40 MG Levemir Levemir No QD Levemir Flex Flex Flex Auto-Inject Auto-Inject Auto-Injec or Pen or Pen tor Pen [place] NovoLIN NovoLIN No NovoLIN 70/30 70/30 70/30 (70-30) 100 (70-30) 100 (70-30) UNIT/ML UNIT/ML 100 UNIT/ML Levothyroxi Levothyroxi No Levothyrox ne Sodium ne Sodium ine Sodium 150 MCG 150 MCG 150 MCG Lisinopril Lisinopril No 1{table QD Lisinopril 2.5 MG 2.5 MG t} 2.5 MG Flonase 50 Flonase 50 No 2{spray QD Flonase 50 MCG/ACT MCG/ACT _in_eac MCG/ACT h_nostr il} Januvia 25 Januvia 25 No Januvia 25 MG MG MG metFORMIN metFORMIN No metFORMIN HCl ER HCl ER HCl ER (MOD) 1000 (MOD) 1000 (MOD) 1000 MG MG MG Levemir Levemir No QD Levemir FlexTouch FlexTouch FlexTouch Glimepiride Glimepiride No Glimepirid 4 MG 4 MG e 4 MG Lipitor 40 Lipitor 40 No 1{table QD Lipitor 40 MG MG t} MG Pantoprazol Pantoprazol No 1{table QD Pantoprazo e Sodium 40 e Sodium 40 t} le Sodium MG MG 40 MG Levemir Levemir No QD Levemir Flex Flex Flex Auto-Inject Auto-Inject Auto-Injec or Pen or Pen tor Pen [place] [facility] Novo[facility] No NovoLIN 70/30 70/30 70/30 (70-30) 100 (70-30) 100 (70-30) UNIT/ML UNIT/ML 100 UNIT/ML Levothyroxi Levothyroxi No Levothyrox ne Sodium ne Sodium ine Sodium 150 MCG 150 MCG 150 MCG Lisinopril Lisinopril No 1{table QD Lisinopril 2.5 MG 2.5 MG t} 2.5 MG Flonase 50 Flonase 50 No 2{spray QD Flonase 50 MCG/ACT MCG/ACT _in_eac MCG/ACT h_nostr il} Januvia 25 Januvia 25 No Januvia 25 MG MG MG metFORMIN metFORMIN No metFORMIN HCl ER HCl ER HCl ER (MOD) 1000 (MOD) 1000 (MOD) 1000 MG MG MG Levemir Levemir No QD Levemir FlexTouch FlexTouch FlexTouch Glimepiride Glimepiride No Glimepirid 4 MG 4 MG e 4 MG Lipitor 40 Lipitor 40 No 1{table QD Lipitor 40 MG MG t} MG Pantoprazol Pantoprazol No Pantoprazo e Sodium 40 e Sodium 40 le Sodium MG MG 40 MG Januvia 25 Januvia 25 No Januvia 25 MG MG MG metFORMIN metFORMIN No metFORMIN HCl ER HCl ER HCl ER (MOD) 1000 (MOD) 1000 (MOD) 1000 MG MG MG NovoLIN NovoLIN No NovoLIN 70/30 70/30 70/30 (70-30) 100 (70-30) 100 (70-30) UNIT/ML UNIT/ML 100 UNIT/ML Lisinopril Lisinopril No 1{table QD Lisinopril 2.5 MG 2.5 MG t} 2.5 MG metFORMIN metFORMIN No metFORMIN HCl 1000 MG HCl 1000 MG HCl 1000 MG Levothyroxi Levothyroxi No QD Levothyrox ne Sodium ne Sodium ine Sodium 150 MCG 150 MCG 150 MCG Pantoprazol Pantoprazol No 1{table QD Pantoprazo e Sodium 40 e Sodium 40 t} le Sodium MG MG 40 MG Glimepiride Glimepiride No Glimepirid 4 MG 4 MG e 4 MG Glimepiride Glimepiride No Glimepirid 4 MG 4 MG e 4 MG Levothyroxi Levothyroxi No Levothyrox ne Sodium ne Sodium ine Sodium 150 MCG 150 MCG 150 MCG Levemir Levemir No QD Levemir Flex Flex Flex Auto-Inject Auto-Inject Auto-Injec or Pen or Pen tor Pen [place] Lisinopril Lisinopril No Lisinopril 2.5 MG 2.5 MG 2.5 MG FreeStyle FreeStyle No FreeStyle Jaycee 14 Jaycee 14 Jaycee 14 Day Elizabeth Day Elizabeth Day Elizabeth - - - Fluticasone Fluticasone No Fluticason Propionate Propionate e 50 MCG/ACT 50 MCG/ACT Propionate 50 MCG/ACT Levemir Levemir No QD Levemir FlexTouch FlexTouch FlexTouch Lipitor 40 Lipitor 40 No 1{table QD Lipitor 40 MG MG t} MG Lipitor 40 Lipitor 40 No 1{table QD Lipitor 40 MG MG t} MG Levemir Levemir No QD Levemir Flex Flex Flex Auto-Inject Auto-Inject Auto-Injec or Pen or Pen tor Pen [place] Pantoprazol Pantoprazol No Pantoprazo e Sodium 40 e Sodium 40 le Sodium MG MG 40 MG Levothyroxi Levothyroxi No Levothyrox ne Sodium ne Sodium ine Sodium 150 MCG 150 MCG 150 MCG Januvia 25 Januvia 25 No Januvia 25 MG MG MG Lisinopril Lisinopril No 1{table QD Lisinopril 2.5 MG 2.5 MG t} 2.5 MG Lisinopril Lisinopril No Lisinopril 2.5 MG 2.5 MG 2.5 MG Levemir Levemir No QD Levemir FlexTouch FlexTouch FlexTouch Levothyroxi Levothyroxi No QD Levothyrox ne Sodium ne Sodium ine Sodium 150 MCG 150 MCG 150 MCG Glimepiride Glimepiride No Glimepirid 4 MG 4 MG e 4 MG metFORMIN metFORMIN No metFORMIN HCl 1000 MG HCl 1000 MG HCl 1000 MG NovoLIN NovoLIN No NovoLIN 70/30 70/30 70/30 (70-30) 100 (70-30) 100 (70-30) UNIT/ML UNIT/ML 100 UNIT/ML metFORMIN metFORMIN No metFORMIN HCl ER HCl ER HCl ER (MOD) 1000 (MOD) 1000 (MOD) 1000 MG MG MG Fluticasone Fluticasone No Fluticason Propionate Propionate e 50 MCG/ACT 50 MCG/ACT Propionate 50 MCG/ACT Pantoprazol Pantoprazol No 1{table QD Pantoprazo e Sodium 40 e Sodium 40 t} le Sodium MG MG 40 MG Glimepiride Glimepiride No Glimepirid 4 MG 4 MG e 4 MG Januvia 25 Junuvia 25 No Januvia 25 MG MG MG Pantoprazol Pantoprazol No 1{table QD Pantoprazo e Sodium 40 e Sodium 40 t} le Sodium MG MG 40 MG metFORMIN metFORMIN No metFORMIN HCl 1000 MG HCl 1000 MG HCl 1000 MG Lisinopril Lisinopril No 1{table QD Lisinopril 2.5 MG 2.5 MG t} 2.5 MG Levemir Levemir No QD Levemir FlexTouch FlexTouch FlexTouch Levothyroxi Levothyroxi No Levothyrox ne Sodium ne Sodium ine Sodium 150 MCG 150 MCG 150 MCG Lisinopril Lisinopril No Lisinopril 2.5 MG 2.5 MG 2.5 MG metFORMIN metFORMIN No metFORMIN HCl ER HCl ER HCl ER (MOD) 1000 (MOD) 1000 (MOD) 1000 MG MG MG Glimepiride Glimepiride No Glimepirid 4 MG 4 MG e 4 MG Pantoprazol Pantoprazol No Pantoprazo e Sodium 40 e Sodium 40 le Sodium MG MG 40 MG Lipitor 40 Lipitor 40 No 1{table QD Lipitor 40 MG MG t} MG NovoLIN NovoLIN No NovoLIN 70/30 70/30 70/30 (70-30) 100 (70-30) 100 (70-30) UNIT/ML UNIT/ML 100 UNIT/ML Glimepiride Glimepiride No Glimepirid 4 MG 4 MG e 4 MG Levothyroxi Levothyroxi No QD Levothyrox ne Sodium ne Sodium ine Sodium 150 MCG 150 MCG 150 MCG Flonase 50 Flonase 50 No 2{spray QD Flonase 50 MCG/ACT MCG/ACT _in_eac MCG/ACT h_nostr il} Fluticasone Fluticasone No Fluticason Propionate Propionate e 50 MCG/ACT 50 MCG/ACT Propionate 50 MCG/ACT Levemir Levemir No QD Levemir Flex Flex Flex Auto-Inject Auto-Inject Auto-Injec or Pen or Pen tor Pen [place] Januvia 25 Januvia 25 No Januvia 25 MG MG MG Pantoprazol Pantoprazol No 1{table QD Pantoprazo e Sodium 40 e Sodium 40 t} le Sodium MG MG 40 MG metFORMIN metFORMIN No metFORMIN HCl 1000 MG HCl 1000 MG HCl 1000 MG Lisinopril Lisinopril No 1{table QD Lisinopril 2.5 MG 2.5 MG t} 2.5 MG Levemir Levemir No QD Levemir FlexTouch FlexTouch FlexTouch Levothyroxi Levothyroxi No Levothyrox ne Sodium ne Sodium ine Sodium 150 MCG 150 MCG 150 MCG Lisinopril Lisinopril No Lisinopril 2.5 MG 2.5 MG 2.5 MG metFORMIN metFORMIN No metFORMIN HCl ER HCl ER HCl ER (MOD) 1000 (MOD) 1000 (MOD) 1000 MG MG MG Glimepiride Glimepiride No Glimepirid 4 MG 4 MG e 4 MG Pantoprazol Pantoprazol No Pantoprazo e Sodium 40 e Sodium 40 le Sodium MG MG 40 MG Lipitor 40 Lipitor 40 No 1{table QD Lipitor 40 MG MG t} MG NovoLIN NovoLIN No NovoLIN 70/30 70/30 70/30 (70-30) 100 (70-30) 100 (70-30) UNIT/ML UNIT/ML 100 UNIT/ML Glimepiride Glimepiride No Glimepirid 4 MG 4 MG e 4 MG Levothyroxi Levothyroxi No QD Levothyrox ne Sodium ne Sodium ine Sodium 150 MCG 150 MCG 150 MCG Flonase 50 Flonase 50 No 2{spray QD Flonase 50 MCG/ACT MCG/ACT _in_eac MCG/ACT h_nostr il} Fluticasone Fluticasone No Fluticason Propionate Propionate e 50 MCG/ACT 50 MCG/ACT Propionate 50 MCG/ACT Levemir Levemir No QD Levemir Flex Flex Flex Auto-Inject Auto-Inject Auto-Injec or Pen or Pen tor Pen [place] Lisinopril Lisinopril No Lisinopril 2.5 MG 2.5 MG 2.5 MG NovoLIN NovoLIN No TID NovoLIN 70/30 70/30 70/30 (70-30) 100 (70-30) 100 (70-30) UNIT/ML UNIT/ML 100 UNIT/ML Glimepiride Glimepiride No Glimepirid 4 MG 4 MG e 4 MG Levemir Levemir No QD Levemir Flex Flex Flex Auto-Inject Auto-Inject Auto-Injec or Pen or Pen tor Pen [place] Lipitor 40 Lipitor 40 No 1{table QD Lipitor 40 MG MG t} MG Pantoprazol Pantoprazol No Pantoprazo e Sodium 40 e Sodium 40 le Sodium MG MG 40 MG Fluticasone Fluticasone No Fluticason Propionate Propionate e 50 MCG/ACT 50 MCG/ACT Propionate 50 MCG/ACT Pantoprazol Pantoprazol No 1{table QD Pantoprazo e Sodium 40 e Sodium 40 t} le Sodium MG MG 40 MG Glimepiride Glimepiride No Glimepirid 4 MG 4 MG e 4 MG Levemir Levemir No QD Levemir FlexTouch FlexTouch FlexTouch metFORMIN metFORMIN No metFORMIN HCl 1000 MG HCl 1000 MG HCl 1000 MG Januvia Junuvia 25 No 1{table QD Januvia 25 MG MG t} MG Flonase 50 Flonase 50 No 2{spray QD Flonase 50 MCG/ACT MCG/ACT _in_eac MCG/ACT h_nostr il} Levothyroxi Levothyroxi No QD Levothyrox ne Sodium ne Sodium ine Sodium 150 MCG 150 MCG 150 MCG Lisinopril Lisinopril No Lisinopril 2.5 MG 2.5 MG 2.5 MG NovoLIN NovoLIN No TID NovoLIN 70/30 70/30 70/30 (70-30) 100 (70-30) 100 (70-30) UNIT/ML UNIT/ML 100 UNIT/ML Glimepiride Glimepiride No Glimepirid 4 MG 4 MG e 4 MG Levemir Levemir No QD Levemir Flex Flex Flex Auto-Inject Auto-Inject Auto-Injec or Pen or Pen tor Pen [place] Lipitor 40 Lipitor 40 No 1{table QD Lipitor 40 MG MG t} MG Pantoprazol Pantoprazol No Pantoprazo e Sodium 40 e Sodium 40 le Sodium MG MG 40 MG Fluticasone Fluticasone No Fluticason Propionate Propionate e 50 MCG/ACT 50 MCG/ACT Propionate 50 MCG/ACT Pantoprazol Pantoprazol No 1{table QD Pantoprazo e Sodium 40 e Sodium 40 t} le Sodium MG MG 40 MG Glimepiride Glimepiride No Glimepirid 4 MG 4 MG e 4 MG Levemir Levemir No QD Levemir FlexTouch FlexTouch FlexTouch metFORMIN metFORMIN No metFORMIN HCl 1000 MG HCl 1000 MG HCl 1000 MG Januvia 25 Januvia 25 No 1{table QD Januvia 25 MG MG t} MG Flonase 50 Flonase 50 No 2{spray QD Flonase 50 MCG/ACT MCG/ACT _in_eac MCG/ACT h_nostr il} Levothyroxi Levothyroxi No QD Levothyrox ne Sodium ne Sodium ine Sodium 150 MCG 150 MCG 150 MCG Lisinopril Lisinopril No Lisinopril 2.5 MG 2.5 MG 2.5 MG NovoLIN NovoLIN No TID NovoLIN 70/30 70/30 70/30 (70-30) 100 (70-30) 100 (70-30) UNIT/ML UNIT/ML 100 UNIT/ML Glimepiride Glimepiride No Glimepirid 4 MG 4 MG e 4 MG Levemir Levemir No QD Levemir Flex Flex Flex Auto-Inject Auto-Inject Auto-Injec or Pen or Pen tor Pen [place] Lipitor 40 Lipitor 40 No 1{table QD Lipitor 40 MG MG t} MG Pantoprazol Pantoprazol No Pantoprazo e Sodium 40 e Sodium 40 le Sodium MG MG 40 MG Fluticasone Fluticasone No Fluticason Propionate Propionate e 50 MCG/ACT 50 MCG/ACT Propionate 50 MCG/ACT Pantoprazol Pantoprazol No 1{table QD Pantoprazo e Sodium 40 e Sodium 40 t} le Sodium MG MG 40 MG Glimepiride Glimepiride No Glimepirid 4 MG 4 MG e 4 MG Levemir Levemir No QD Levemir FlexTouch FlexTouch FlexTouch metFORMIN metFORMIN No metFORMIN HCl 1000 MG HCl 1000 MG HCl 1000 MG Januvia 25 Januvia 25 No 1{table QD Januvia 25 MG MG t} MG Flonase 50 Flonase 50 No 2{spray QD Flonase 50 MCG/ACT MCG/ACT _in_eac MCG/ACT h_nostr il} Levothyroxi Levothyroxi No QD Levothyrox ne Sodium ne Sodium ine Sodium 150 MCG 150 MCG 150 MCG metFORMIN metFORMIN No metFORMIN HCl ER HCl ER HCl ER (MOD) 1000 (MOD) 1000 (MOD) 1000 MG MG MG Levothyroxi Levothyroxi No QD Levothyrox ne Sodium ne Sodium ine Sodium 100MCG 100MCG 100MCG Lipitor 40 Lipitor 40 No 1{table QD Lipitor 40 MG MG t} MG Januvia 25 Januvia 25 No Januvia 25 MG MG MG Levemir Levemir No QD Levemir Flex Flex Flex Auto-Inject Auto-Inject Auto-Injec or Pen or Pen tor Pen [place] Glimepiride Glimepiride No Glimepirid 4 MG 4 MG e 4 MG Lisinopril Lisinopril No 1{table QD Lisinopril 2.5 MG 2.5 MG t} 2.5 MG NovoLIN NovoLIN No NovoLIN 70/30 70/30 70/30 (70-30) 100 (70-30) 100 (70-30) UNIT/ML UNIT/ML 100 UNIT/ML Lisinopril Lisinopril No 1{table QD Lisinopril 2.5 MG 2.5 MG t} 2.5 MG Glimepiride Glimepiride No Glimepirid 4 MG 4 MG e 4 MG Levemir Levemir No QD Levemir Flex Flex Flex Auto-Inject Auto-Inject Auto-Injec or Pen or Pen tor Pen [place] NovoLIN NovoLIN No NovoLIN 70/30 70/30 70/30 (70-30) 100 (70-30) 100 (70-30) UNIT/ML UNIT/ML 100 UNIT/ML Levothyroxi Levothyroxi No QD Levothyrox ne Sodium ne Sodium ine Sodium 100MCG 100MCG 100MCG metFORMIN metFORMIN No metFORMIN HCl ER HCl ER HCl ER (MOD) 1000 (MOD) 1000 (MOD) 1000 MG MG MG Januvia 25 Januvia 25 No Januvia 25 MG MG MG Lipitor 40 Lipitor 40 No 1{table QD Lipitor 40 MG MG t} MG metFORMIN metFORMIN No 1{table QD metFORMIN HCl ER HCl ER t_with_ HCl ER (MOD) 1000 (MOD) 1000 evening (MOD) 1000 MG MG _meal} MG Levothyroxi Levothyroxi No QD Levothyrox ne Sodium ne Sodium ine Sodium 100MCG 100MCG 100MCG Glimepiride Glimepiride No Glimepirid 4 MG 4 MG e 4 MG Levemir Levemir No QD Levemir Flex Flex Flex Auto-Inject Auto-Inject Auto-Injec or Pen or Pen tor Pen [place] NovoLIN NovoLIN No NovoLIN 70/30 70/30 70/30 (70-30) 100 (70-30) 100 (70-30) UNIT/ML UNIT/ML 100 UNIT/ML Lisinopril Lisinopril No 1{table QD Lisinopril 2.5 MG 2.5 MG t} 2.5 MG Lipitor 40 Lipitor 40 No 1{table QD Lipitor 40 MG MG t} MG Januvia 25 Januvia 25 No Januvia 25 MG MG MG metFORMIN metFORMIN No metFORMIN HCl ER HCl ER HCl ER (MOD) 1000 (MOD) 1000 (MOD) 1000 MG MG MG Januvia 25 Januvia 25 No Januvia 25 MG MG MG Immunizations Ordered Immunization Filled Immunization Date Status Commen ts Source Name Name Odilon Donald 2021-05-06 [facility]pleted [facility]00 [facility] Odilon Donald 2021-05-06 [facility]pleted [facility] 13:14:00 [facility] [place] Odilon 2021-05-06 Completed [facility] 13:14:00 [facility] [place] Odilon 2021-05-06 [facility]pleted [facility] 13:14:00 [facility] [place] 2021-05-06 [facility]pleted [facility] 13:14:00 [facility] Odilon Donald 2021-05-06 [facility]pleted [facility] 13:14:00 [facility] [place] Odilon 2021-05-06 Completed [facility] 13:14:00 [facility] Odilon Donald 2021-05-06 [facility]pleted [facility] 13:14:00 - [facility] Odilon Donald 2021-05-06 Completed [facility] 13:14:00 - [facility] [place] Odilon 2021-05-06 Completed [facility] 13:14:00 [facility] COVID-19 Vaccine COVID-19 Vaccine 2020-12-30 [facility]pleted [facility] ([facility]) (Steve) 16:44:00 [facility] COVID-19 Vaccine COVID-19 Vaccine 2020-12-30 Completed [facility] (Steve) (Steve) 16:44:00 [facility] COVID-19 Vaccine COVID-19 Vaccine 2020-12-30 Completed [facility] (Steve) (Steve) 16:44:00 [facility] COVID-19 Vaccine COVID-19 Vaccine 2020-12-30 Completed [facility] (Steve) (Steve) 16:44:00 [facility] COVID-19 Vaccine COVID-19 Vaccine 2020-12-30 Completed [facility] (Steve) (Steve) 16:44:00 [facility] COVID-19 Vaccine COVID-19 Vaccine 2020-12-30 Completed [facility] (Steve) (Steve) 16:44:00 [facility] COVID-19 Vaccine COVID-19 Vaccine 2020-12-30 Completed [facility] (Steve) (Steve) 16:44:00 [facility] COVID-19 Vaccine COVID-19 Vaccine 2020-12-30 Completed [facility] (Steve) (Steve) 16:44:00 [facility] COVID-19 Vaccine COVID-19 Vaccine 2020-12-30 Completed [facility] (Steve) (Steve) 16:44:00 [facility] COVID-19 Vaccine COVID-19 Vaccine 2020-12-30 Completed [facility] (Steve) (Steve) 16:44:00 [facility] COVID-19 Vaccine COVID-19 Vaccine 2020-12-30 Completed [facility] (Steve) (Steve) 16:44:00 [facility] COVID-19 Vaccine COVID-19 Vaccine 2020-12-30 Completed [facility] (Steve) (Steve) 16:44:00 [facility] COVID-19 Vaccine COVID-19 Vaccine 2020-12-30 Completed [facility] (Steve) (Steve) 16:44:00 [facility] COVID-19 Vaccine COVID-19 Vaccine 2020-12-30 Completed [facility] (Steve) (Steve) 16:44:00 [facility] Vital Signs Vital Name Observation Time Observation Value Comments Source height 2021-05-23 13:40:00 69 [in_i] [facility] weight 2021-05-23 13:40:00 231.0 [lb_av] [facility] temperature 2021-05-23 13:40:00 97.3 [degF] [facility] bmi 2021-05-23 13:40:00 34.11 kg/m2 [facility] oximetry 2021-05-23 13:40:00 98 % [facility] respiratory rate 2021-05-23 13:40:00 17 /min Comm on [facility] blood pressure 2021-05-23 13:40:00 136 mm[Hg] [facility] - systolic [facility] blood pressure 2021-05-23 13:40:00 83 mm[Hg] [facility] - diastolic [facility] height 2021-02-21 16:20:00 69 [in_i] [facility] weight 2021-02-21 16:20:00 216 [lb_av] [facility] temperature 2021-02-21 16:20:00 97.3 [degF] [facility] bmi 2021-02-21 16:20:00 31.89 kg/m2 [facility] oximetry 2021-02-21 16:20:00 97 % [facility] respiratory rate 2021-02-21 16:20:00 19 /min Comm on [facility] blood pressure 2021-02-21 16:20:00 114 mm[Hg] Common [facility] - systolic [facility] blood pressure 2021-02-21 16:20:00 71 mm[Hg] [facility] - diastolic [facility] height 2021-01-21 14:00:00 69 [in_i] [facility] weight 2021-01-21 14:00:00 218 [lb_av] [facility] temperature 2021-01-21 14:00:00 97.9 [degF] [facility] bmi 2021-01-21 14:00:00 32.19 kg/m2 [facility] oximetry 2021-01-21 14:00:00 97 % [facility] blood pressure 2021-01-21 14:00:00 134 mm[Hg] Common [facility] - systolic [facility] blood pressure 2021-01-21 14:00:00 81 mm[Hg] Common [facility] - diastolic [facility] Procedures This patient has no known procedures. Encounters Start End Encounter Admission Attending Care Care Encounter Source Date/Time Date/Time Type Type Clinicians Facility Department ID 2022-04-13 Outpatient Kwok, Na STLMLC STLMLC [id number] 2 [facility] 10:03:02 [facility] 2022-01-06 Outpatient Kowk, Na STLMLC STLMLC [id number] 2 [facility] 11:37:01 [facility] 2021-10-24 Outpatient Kwok, Na STLMLC STLMLC [id number] 2 [facility] 10:09:02 [facility] 2021-09-08 Outpatient Kwok, Na STLMLC STLMLC [id number] 2 [facility] 08:23:01 [facility] 2021-07-02 Outpatient Kwok, Na STLMLC STLMLC [id number] 2 [facility] 14:32:22 [facility] 2021-07-02 Outpatient Kwok, Na STLMLC STLMLC [id number] 2 [facility] 14:26:24 [id number] [facility] 2021-07-02 Outpatient Kwok, Na STLMLC STLMLC [id number] 2 [facility] 13:39:22 [id number] [facility] 2022-03-24 2022-03-24 (TEL) STLMLC STLMLC [id number] [facility] 00:00:00 00:00:00 [facility] 2022-03-22 2022-03-22 (WEB) STLMLC STLMLC [id number] [facility] 00:00:00 00:00:00 [facility] 2022-03-15 2022-03-15 (TEL) STLMLC STLMLC [id number] [facility] 00:00:00 00:00:00 [facility] 2022-01-07 2022-01-07 OFFICE STLMLC STLMLC [id number] [facility] 00:00:00 00:00:00 VISIT [facility] LEVEL 4 [facility] 2022-01-02 2022-01-02 (TEL) STLMLC STLMLC [id number] [facility] 00:00:00 00:00:00 [facility] 2021-11-24 2021-11-24 (TEL) STLMLC STLMLC [id number] [facility] 00:00:00 00:00:00 [facility] 2021-11-19 2021-11-19 (TEL) STLMLC STLMLC [id number] [facility] 00:00:00 00:00:00 [facility] 2021-06-19 2021-06-19 (TEL) STLMLC STLMLC [id number] [facility] 00:00:00 00:00:00 [facility] 2021-06-01 2021-06-01 (TEL) STLMLC STLMLC [id number] [facility] 00:00:00 00:00:00 [facility] 2021-05-23 2021-05-23 OFFICE STLMLC STLMLC [id number] [facility] 00:00:00 00:00:00 [facility] - [facility] LEVEL 4 [facility] 2021-04-25 2021-04-25 (TEL) STLMLC STLMLC [id number] [facility] 00:00:00 00:00:00 [facility] 2021-04-18 2021-04-18 Outpatient [facility] DM[facility] DM[facility] [id number] [facility] 08:00:00 08:00:00 [id number] 2021-04-18 2021-04-18 (TEL) STLMLC STLMLC [id number] [facility] 00:00:00 00:00:00 [facility] 2021-04-16 2021-04-16 (TEL) STLMLC STLMLC [id number] [facility] 00:00:00 00:00:00 [facility] 2021-02-21 2021-02-21 OFFICE STLMLC STLMLC [id number] [facility] 00:00:00 00:00:00 VISIT [facility] PT LEVEL 3 - [facility] 2021-01-26 2021-01-26 (WEB) STLMLC STLMLC [id number] [facility] 00:00:00 00:00:00 [facility] 2021-01-23 2021-01-23 (TEL) STLMLC STLMLC [id number] [facility] 00:00:00 00:00:00 [facility] 2021-01-21 2021-01-21 OFFICE STLMLC STLMLC [id number] [facility] 00:00:00 00:00:00 VISIT [facility] PT LEVEL 4 [facility] 2020-12-10 2020-12-10 [facility] [id number] [facility] 11:37:00 11:37:00 [id number] 2020-10-18 2020-10-18 Outpatient [facility] [id number] [facility] 08:00:00 08:00:00 [facility] 2020-09-21 2020-09-21 Outpatient [facility] [id number] [facility] 06:01:00 06:01:00 [facility] 2020-09-16 2020-09-16 Outpatient [facility] [id number] [facility] 08:00:00 08:00:00 [facility] Results Test Description Test Time Test Comments Results Result Comments Source C Spine Comp W/Flex C Spine Comp Exten W/Flex Exten
[2022-04-22] MEDS ORDERED: HYDROCODONE/APAP 10/325 TAB ONE (23:08)
[2022-04-23] MEDS ORDERED: GABAPENTIN 300 MG CAP ONE (01:04)
[2022-04-23] MEDS ORDERED: KETOROLAC 30 MG/ML INJ ONE (01:04)
--- NOTE | 2022-04-23 01:15 | EDPHYS ---
Physician Documentation [facility] Name: Cedrick Rodriguez Age: 51 yrs Sex: Male : 1970 Arrival Date: 04/22/2022 Time: 22:54 Bed 2 Private MD: ED Physician Zach Cervantes HPI: 04/23 00:30 This 51 yrs old Male presents to ER via EMS with complaints of wrist pain. kb 00:30 The patient or guardian reports pain. The complaints affect the left wrist diffusely, kb right wrist diffusely. Context: The problem was sustained at home, resulted from a fall. Onset: The symptoms/episode began/occurred 2 week(s) ago. Modifying factors: The symptoms are alleviated by nothing, the symptoms are aggravated by movement. Associated signs and symptoms: The patient has no apparent associated signs or symptoms. The patient has not experienced similar symptoms in the past. The patient has not recently seen a physician. Pt reports pain to both wrists and hands after falling 2 weeks ago. Reports pain got worse tonight and radiates into his palms. Historical: - Allergies: 04/22 23:05 No Known Allergies; as6 - Home Meds: 23:05 aspirin 81 mg Oral tab 1 tab once daily [Active]; levothyroxine 100 mcg tab 1 tab once as6 daily [Active]; lisinopril Oral [Active]; metformin 1,000 mg Oral tab 2 times per day [Active]; - PMHx: 23:05 Diabetes - IDDM; Diabetes - NIDDM; Enlarge liver; Hypothyroidism; kidney issues; as6 Myocardial infarction; - PSHx: 23:05 Cholecystectomy; Repair of inguinal hernia; Splenectomy; as6 - Immunization history:: Adult Immunizations up to date, Client reports receiving the 2nd dose of the Covid vaccine, Flu vaccine is up to date. - Social history:: Smoking status: Patient reports the use of cigarette tobacco products, smokes one pack cigarettes per day. ROS: 04/23 00:30 Constitutional: Negative for fever, chills, and weight loss. kb MS/extremity: Positive for pain, of the left hand and right hand and right wrist and left wrist. All other systems are negative. Exam: 00:30 Constitutional: This is a well developed, well nourished patient who is awake, alert, kb and in no acute distress. Head/Face: Normocephalic, atraumatic. ENT: Moist Mucous membranes Cardiovascular: Regular rate and rhythm with a normal S1 and S2. No gallops, murmurs, or rubs. No pulse deficits. Respiratory: Respirations even and unlabored. No increased work of breathing. Talking in full sentences Abdomen/GI: Soft, non-tender. No distention Skin: Warm, dry with normal turgor. Normal color. Neuro: Awake and alert, GCS 15, oriented to person, place, time, and situation. Moves all extremities. Normal gait. Psych: Awake, alert, with orientation to person, place and time. Behavior, mood, and affect are within normal limits. 00:30 Musculoskeletal/extremity: Extremities: grossly normal except: noted in the right wrist and left wrist: pain, swelling, tenderness, ROM: limited active range of motion due to pain, Circulation is intact in all extremities. Sensation intact. Vital Signs: 04/22 23:04 BP 135 / 112; Pulse 105; Resp 18 S; Temp 97.9(O); Pulse Ox 96% on R/A; Weight 104.33 kg as6 (R); Height 5 ft. 9 in. (175.26 cm) (R); Pain 03/16; 04/23 01:11 BP 140 / 84; Pulse 91; Resp 17; Pulse Ox 97% ; jj7 01:54 BP 146 / 89; Pulse 65; Resp 18; Pulse Ox 97% ; jj7 04/22 23:04 Body Mass Index 33.96 (104.33 kg, 175.26 cm) as6 MDM: 04/22 22:58 Patient medically screened. huan 04/23 00:29 Data reviewed: vital signs, nurses notes. Data interpreted: Pulse oximetry: on room air kb is 96 %. Interpretation: normal. Counseling: I had a detailed discussion with the patient and/or guardian regarding: the historical points, exam findings, and any diagnostic results supporting the discharge/admit diagnosis, radiology results, the need for outpatient follow up, a family practitioner, to return to the emergency department if symptoms worsen or persist or if there are any questions or concerns that arise at home. 04/22 23:01 Order name: Wrist Left (2 View) XRAY kb 04/22 23:01 Order name: Wrist Right 2 View XRAY kb 04/22 23:01 Order name: Hand Left 2 View XRAY kb 04/22 23:01 Order name: Hand Right 2 View XRAY kb 04/23 00:49 Order name: Wrist Splint; Complete Time: 01:50 kb 04/23 00:49 Order name: Wrist Splint; Complete Time: 01:50 kb Administered Medications: 04/22 23:14 Drug: [place] (HYDROcodone-acetaminophen) 10 mg-325 mg 1 tabs Route: PO; as6 04/23 01:10 Drug: Ketorolac 30 mg Route: IM; Site: right gluteus; jj7 01:10 Drug: Gabapentin 300 mg Route: PO; jj7 Disposition: 03:17 Co-signature as Attending Physician, Zach Cervantes MD I agree with the assessment and rt plan of care. Disposition Summary: 04/23/22 01:14 Discharge Ordered Location: Home kb Condition: Stable kb Diagnosis - Pain in left wrist kb - Pain in right wrist kb - Carpal tunnel syndrome kb Followup: kb - With: Emergency Department - When: As needed - Reason: Worsening of condition Followup: kb - With: Private Physician - When: 2 - 3 days - Reason: Recheck today's complaints, Continuance of care, Re-evaluation by your physician Discharge Instructions: - Discharge Summary Sheet kb - Musculoskeletal Pain kb - Carpal Tunnel Syndrome, [id number] kb Forms: - Medication Reconciliation Form kb - Thank You Letter kb - Antibiotic Education kb - Prescription Opioid Use kb Prescriptions: - Ibuprofen 800 mg Oral Tablet - take 1 tablet by ORAL route every 8 hours As needed take with food; 30 tablet; kb Refills: 0, Product Selection Permitted - Neurontin 300 mg Oral Capsule - take 1 capsule by ORAL route At bedtime; 10 capsule; Refills: 0, Product kb Selection Permitted Signatures: Dispatcher [employer] Isabella Jacobo FNP-C FNP-Glenn Johnson RN RN as6 Lisa Carlton RN RN jj7 Zach Cervantes MD MD rt Corrections: (The following items were deleted from the chart) 00:52 00:30 Pt reports pain to both wrists and hands after falling 2 weeks ago. kb kb
--- NOTE | 2022-04-23 01:15 | ER ---
Nurse's Notes [facility] Name: Cedrick Rodriguez Age: 51 yrs Sex: Male : 1970 Arrival Date: 04/22/2022 Time: 22:54 Bed 2 Private MD: Diagnosis: Pain in left wrist;Pain in right wrist;Carpal tunnel syndrome Presentation: 04/22 22:54 Chief complaint: EMS states: pt had a fall 2 weeks ago. did not seek medical help and as6 is c/o left wrist pain. Coronavirus screen: At this time, the client does not indicate any symptoms associated with coronavirus-19. Ebola Screen: No symptoms or risks identified at this time. Risk Assessment: Do you want to hurt yourself or someone else? Patient reports no desire to harm self or others. Onset of symptoms was April 08, 2022. 22:54 Method Of Arrival: EMS: [facility] as6 22:54 Acuity: VICENTE 4 as6 23:04 Initial Sepsis Screen: Does the patient meet any 2 criteria? No. Patient's initial as6 sepsis screen is negative. Does the patient have a suspected source of infection? No. Patient's initial sepsis screen is negative. Historical: - Allergies: 23:05 No Known Allergies; as6 - Home Meds: 23:05 aspirin 81 mg Oral tab 1 tab once daily [Active]; levothyroxine 100 mcg tab 1 tab once as6 daily [Active]; lisinopril Oral [Active]; metformin 1,000 mg Oral tab 2 times per day [Active]; - PMHx: 23:05 Diabetes - IDDM; Diabetes - NIDDM; Enlarge liver; Hypothyroidism; kidney issues; as6 Myocardial infarction; - PSHx: 23:05 Cholecystectomy; Repair of inguinal hernia; Splenectomy; as6 - Immunization history:: Adult Immunizations up to date, Client reports receiving the 2nd dose of the Covid vaccine, Flu vaccine is up to date. - Social history:: Smoking status: Patient reports the use of cigarette tobacco products, smokes one pack cigarettes per day. Screenin:36 Abuse screen: Denies threats or abuse. Denies injuries from another. Nutritional as6 screening: No deficits noted. Tuberculosis screening: No symptoms or risk factors identified. Fall Risk Fall in past 12 months (25 points). Total Hanson Fall Scale indicates Low Risk Score (25-44 pts). Side Rails Up X 2. Assessment: 23:00 General: Appears uncomfortable, Behavior is cooperative, restless. Pain: Complains of as6 pain in right hand, left hand, right wrist and left wrist. Neuro: Level of Consciousness is awake, alert, obeys commands. Respiratory: Respiratory effort is even, unlabored. Musculoskeletal: Swelling present in right wrist and left wrist. Vital Signs: 23:04 BP 135 / 112; Pulse 105; Resp 18 S; Temp 97.9(O); Pulse Ox 96% on R/A; Weight 104.33 kg as6 (R); Height 5 ft. 9 in. (175.26 cm) (R); Pain 03/16; 04/23 01:11 BP 140 / 84; Pulse 91; Resp 17; Pulse Ox 97% ; jj7 01:54 BP 146 / 89; Pulse 65; Resp 18; Pulse Ox 97% ; jj7 04/22 23:04 Body Mass Index 33.96 (104.33 kg, 175.26 cm) as6 ED Course: 04/22 22:54 Patient arrived in ED. as6 22:55 Triage completed. as6 22:57 Is[facility] Farrell [facility]C [facility] kb 22:57 Zach Cervantes MD is Attending Physician. kb 23:03 Glenn Lee, TOMÁS is Primary Nurse. as6 23:05 Arm band placed on. as6 23:06 Bed in low position. Call light in reach. Side rails up X2. as6 23:54 Wrist Left (2 View) XRAY In Process Unspecified. EDMS 23:54 Wrist Right 2 View XRAY In Process Unspecified. EDMS 23:55 Hand Left 2 View XRAY In Process Unspecified. EDMS 23:56 Hand Right 2 View XRAY In Process Unspecified. EDMS 11 01:54 No provider procedures requiring assistance completed. Patient did not have IV access jj7 during this emergency room visit. Administered Medications: 04/22 23:14 Drug: [place] (HYDROcodone-acetaminophen) 10 mg-325 mg 1 tabs Route: PO; as6 04/23 01:10 Drug: Ketorolac 30 mg Route: IM; Site: right gluteus; jj7 01:10 Drug: Gabapentin 300 mg Route: PO; jj7 Medication: 04/22 23:36 VIS not applicable for this client. as6 Outcome: 04/23 01:14 Discharge ordered by . kb 01:47 Patient left the ED. vc1 01:54 Discharged to home ambulatory. jj7 01:54 Condition: stable 01:54 Discharge instructions given to patient, Instructed on discharge instructions, medication usage, Demonstrated understanding of instructions, medications, Prescriptions given X 2. Signatures: Dispatcher [employer] EDIsabella Chnu, RIKY PAEZ-Glenn Johnson RN RN as6 Flaca Gao RN RN vc1 Lisa Carlton RN RN jj7
[2022-04-23 01:53] VITALS: TEMP 97.9
[2022-04-23 01:54] VITALS: BP 140/84; O2SAT 97
--- NOTE | 2022-04-23 14:04 | RAD REPORT ---
EXAM DESCRIPTION: Wrist Right 2 View (accession [id number]), Hand Right 2 View (accession [id number]) CLINICAL HISTORY: 51 years Male, PAIN Wrist Right 2 View COMPARISON: None. FINDINGS: No evidence of an acute fracture of the right hand or wrist. No dislocation. No evidence o f osseous destructive changes. There is dorsal wrist soft tissue swelling. IMPRESSION: No evidence of an acute fracture of the right hand or wrist. Electronically signed by: Abelardo Springer MD 04/23/2022 1:10 AM HERB COUNSELOR Due to temporary technical issues with the PACS/Fluency reporting system, reports are being signed by the in house radiologists without review as a courtesy to insure prompt reporting. The interpreting radiologist is fully responsible for the content of the report.
--- NOTE | 2022-04-23 14:07 | RAD REPORT ---
EXAM DESCRIPTION: Wrist Right 2 View (accession [id number]), Hand Right 2 View (accession [id number]) CLINICAL HISTORY: 51 years Male, PAIN Wrist Right 2 View COMPARISON: None. FINDINGS: No evidence of an acute fracture of the right hand or wrist. No dislocation. No evidence o f osseous destructive changes. There is dorsal wrist soft tissue swelling. IMPRESSION: No evidence of an acute fracture of the right hand or wrist. Electronically signed by: Abelardo Springer MD 04/23/2022 1:10 AM CREDIT CORRESPONDENCE CLERK Due to temporary technical issues with the PACS/Fluency reporting system, reports are being signed by the in house radiologists without review as a courtesy to insure prompt reporting. The interpreting radiologist is fully responsible for the content of the report.
--- NOTE | 2022-04-23 14:12 | RAD REPORT ---
EXAM DESCRIPTION: XR Left Wrist, 2 Views CLINICAL HISTORY: PAIN TECHNIQUE: Frontal and lateral views of the left wrist. COMPARISON: No relevant prior studies available. FINDINGS: Bones/joints: No acute or remote fracture. No osseous destruction or erosion. No dis location. Soft tissues: Mild dorsal ulnar soft tissue swelling. No radiopaque foreign body. * A single impression for all exams can be found at the end of this report EXAM DESCRIPTION: XR Right Hand, 2 Views CLINICAL HISTORY: PAIN TECHNIQUE: Frontal and lateral views of the right hand. COMPARISON: No relevant prior studies available. FINDINGS: Bones/joints: No acute or remote fracture. No osseous destruction or erosion. Mild d egenerative changes at the 5th DIP articulation. No dislocation. Soft tissues: Unremarkable. No radiopaque foreign body. * A single impression for all exams can be found at the end of this report IMPRESSION: XR Left Wrist, 2 Views: Mild dorsal ulnar soft tissue swelling. No acute osseous abnormality. XR Right Hand, 2 Views: No acute abnormality. Electronically signed by: Queenie Childers MD 04/23/2022 12:51 AM TEACHER EMOTIONALLY IMPAIRED Due to temporary technical issues with the PACS/Fluency reporting system, reports are being signed by the in house radiologists without review as a courtesy to insure prompt reporting. The interpreting radiologist is fully responsible for the content of the report.
--- NOTE | 2022-04-23 14:46 | RAD REPORT ---
EXAM DESCRIPTION: XR Left Wrist, 2 Views CLINICAL HISTORY: PAIN TECHNIQUE: Frontal and lateral views of the left wrist. COMPARISON: No relevant prior studies available. FINDINGS: Bones/joints: No acute or remote fracture. No osseous destruction or erosion. No dis location. Soft tissues: Mild dorsal ulnar soft tissue swelling. No radiopaque foreign body. * A single impression for all exams can be found at the end of this report EXAM DESCRIPTION: XR Right Hand, 2 Views CLINICAL HISTORY: PAIN TECHNIQUE: Frontal and lateral views of the right hand. COMPARISON: No relevant prior studies available. FINDINGS: Bones/joints: No acute or remote fracture. No osseous destruction or erosion. Mild d egenerative changes at the 5th DIP articulation. No dislocation. Soft tissues: Unremarkable. No radiopaque foreign body. * A single impression for all exams can be found at the end of this report IMPRESSION: XR Left Wrist, 2 Views: Mild dorsal ulnar soft tissue swelling. No acute osseous abnormality. XR Right Hand, 2 Views: No acute abnormality. Electronically signed by: Queenie Childers MD 04/23/2022 12:51 AM DRAGGER Due to temporary technical issues with the PACS/Fluency reporting system, reports are being signed by the in house radiologists without review as a courtesy to insure prompt reporting. The interpreting radiologist is fully responsible for the content of the report.
== END 2022-04-23 01:47 | disposition home or self-care (01) ==
LOC: ER 22:50
DX: G56.03 Carpal tunnel syndrome, bilateral upper limbs (principal); F17.210 Nicotine dependence, cigarettes, uncomplicated
CPT/HCPCS: 96372; 99284